=== PATIENT | male | born 1960 | race Caucasian/White ===

== ENCOUNTER 2017-08-01 07:40 | Inpatient (IN) | payer OTHER, MEDICARE ==
[~2017-08-01] VITALS: Ht 167.6 cm; Wt 100.0 kg
[~2017-08-01 07:40] MED LIST: AMIT25TA20 PO; DIFL500T PO; ENAL10TA7 PO; HYDR10SO PO; HYDR10TA16 PO; METH750T2 PO; PARO10TA
[2017-08-01] MEDS ORDERED: LACTCAP8 PO (08:24)
[2017-08-01] MEDS ORDERED: MORP1TAB25 PO (08:24)
[2017-08-01] MEDS ORDERED: INSU1INJ14 SQ (08:24)
[2017-08-01] MEDS ORDERED: LISI40TA PO (08:24)
[2017-08-01] MEDS ORDERED: NOVOINJ3 SQ (08:24)
[2017-08-01] MEDS ORDERED: [UNRECOGNIZED DRUG - CODE] PO (08:24)
[2017-08-01] MEDS ORDERED: GLIM1TAB PO (08:24)
[2017-08-01] MEDS ORDERED: HYDR25TA5 PO (08:24)
[2017-08-01] MEDS ORDERED: INUL2TAB2 PO (08:24)
--- NOTE | 2017-08-01 08:39 | PD ---
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 Vera for surgery. Pt had an outpatient MRI right foot that showed osteomyelitis of right big toe in the distal phalanx and Dr. Vera wants to do a bone biopsy and culture. Pt denies any fever, chest pain, sob, n/v, abdominal pain, focal weakness or numbness. PFSH Past Medical History Arthritis: No Asthma: No Blood Disorders: No Heart Rhythm Problems: Yes Cancer: No Cardiovascular Problems: Yes (HEART PALPITATIONS) High Cholesterol: Yes Chest Pain: No Congestive Heart Failure: No COPD: No Cerebrovascular Accident: No Diabetes: Yes Patient Takes Glucophage: No Diminished Hearing: No Endocrine: Yes Gastrointestinal Disorders: Yes GERD: Yes Glaucoma: Yes Headaches: Yes Hepatitis: No Hiatal Hernia: No Hypertension: Yes Immune Disorder: No Musculoskeletal: Yes Neurologic: Yes (PERIPHERAL NEUROPATHY) Psychiatric: No Reproductive: No Respiratory: Yes Migraines: No Myocardial Infarction: Yes (PER ECG) Seizures: No Sleep Apnea: No Thyroid Disease: No Ulcer: No Tetanus Vaccination: > 5 Years Influenza Vaccination: No Past Surgical History Abdominal Surgery: Yes (RIGHT INGUINAL HERNIA REPAIR) Appendectomy: Yes Cardiac Surgery: No Cholecystectomy: Yes Ear Surgery: No Endocrine Surgery: Yes (RIGHT NEPHRECTOMY AGE 11) Eye Surgery: No Genitourinary Surgery: Yes (RIGHT NEPHRECTOMY) Gynecologic Surgery: No Oral Surgery: No Thoracic Surgery: No Tonsillectomy: Yes Other Surgery: Yes (RIGHT KIDNEY REMOVED AT AGE 11) Social History Alcohol Use: Yes (RARELY) Tobacco Use: Yes (OCCASIONAL CIGAR) Substance Use: No Allergies-Medications (Allergen,Severity, Reaction): Coded Allergies: No Known Allergies (Verified , 08/01/17) Reported Meds & Prescriptions Reported Meds & Active Scripts Active Reported Fiber Gummies (Inulin) 2 Gram Tab.chew 2 Gm PO DAILY Probiotic (Lactobacillus Acidophilus) 10 Billion Cell Cap 3 Cap PO DAILY Sm Cod Liver Oil (Cod Liver Oil) 1,250 Unit-135 Unit Cap 415 Mg PO DAILY Tresiba Flextouch Pen Inj (Insulin Degludec Inj) 300 unit/3 ML Pen 56 Units SQ BID Novolog Flexpen Inj (Insulin Aspart) 300 Unit/3 Ml Pen 15 Units SQ ACHS Hydrochlorothiazide 25 Mg Tab 25 Mg PO DAILY Glimepiride 1 Mg Tab 1 Mg PO DAILY Take with breakfast or first main meal Morphine ER (Morphine Sulfate) 30 Mg Tab 30 Mg PO BID Lisinopril 40 Mg Tab 40 Mg PO DAILY Review of Systems Except as stated in HPI: all other systems reviewed are Neg Physical Exam Narrative GENERAL: 57yo M not in distress. SKIN: Focused skin assessment warm/dry. HEAD: Atraumatic. Normocephalic. CARDIOVASCULAR: Regular rate and rhythm. No murmur appreciated. RESPIRATORY: No accessory muscle use. Clear to auscultation. Breath sounds equal bilaterally. GASTROINTESTINAL: Abdomen soft, non-tender, nondistended. No rebound tenderness or guarding. MUSCULOSKELETAL: Right foot: Generalized edema in 1st metatarsal. +1.5cm by 1cm ulcer in plantar surface of right big toe and 1cm by 1cm ulcer plantar surface of base of fifth metatarsal. NEUROLOGICAL: Awake and alert. No obvious cranial nerve deficits. Motor grossly within normal limits. Normal speech. PSYCHIATRIC: Appropriate mood and affect; insight and judgment normal. Data Data Orders Orders Complete Blood Count With Diff (08/01/17 08:21) Basic Metabolic Panel (Bmp) (08/01/17 08:21) Prothrombin Time / Inr (Pt) (08/01/17 08:21) Act Partial Throm Time (Ptt) (08/01/17 08:21) Type And Screen (08/01/17 08:21) Electrocardiogram (08/01/17 ) Admit Order (Ed Use Only) (08/01/17 10:04) NPO (08/01/17 10:05) Consult Podiatry (08/01/17 ) Ns (Bolus) Inj (08/01/17 10:15) Labs Laboratory Tests Test 08/01/17 08:40 White Blood Count 8.2 TH/MM3 Red Blood Count 4.10 MIL/MM3 Hemoglobin 11.7 GM/DL Hematocrit 35.2 % Mean Corpuscular Volume 85.9 FL Mean Corpuscular Hemoglobin 28.4 PG Mean Corpuscular Hemoglobin Concent 33.1 % Red Cell Distribution Width 13.8 % Platelet Count 239 TH/MM3 Mean Platelet Volume 8.2 FL Neutrophils (%) (Auto) 64.5 % Lymphocytes (%) (Auto) 23.0 % Monocytes (%) (Auto) 8.7 % Eosinophils (%) (Auto) 3.2 % Basophils (%) (Auto) 0.6 % Neutrophils # (Auto) 5.3 TH/MM3 Lymphocytes # (Auto) 1.9 TH/MM3 Monocytes # (Auto) 0.7 TH/MM3 Eosinophils # (Auto) 0.3 TH/MM3 Basophils # (Auto) 0.0 TH/MM3 CBC Comment DIFF FINAL Differential Comment Prothrombin Time 10.3 SEC Prothromb Time International Ratio 0.9 RATIO Activated Partial Thromboplast Time 27.8 SEC Blood Urea Nitrogen 58 MG/DL Creatinine 2.32 MG/DL Random Glucose 202 MG/DL Calcium Level 9.2 MG/DL Sodium Level 133 MEQ/L Potassium Level 5.1 MEQ/L Chloride Level 99 MEQ/L Carbon Dioxide Level 24.7 MEQ/L Anion Gap 9 MEQ/L Estimat Glomerular Filtration Rate 29 ML/MIN MDM Medical Decision Making Medical Screen Exam Complete: Yes Emergency Medical Condition: Yes Interpretation(s) EKG: NSR 60bpm. No ST segment elevation or depression. Differential Diagnosis Osteomyelitis 1st great toe Narrative Course 57yo M sent in by concrete pipe machine operator for osteomyelitis of right first metatarsal. I discussed with Dr. Vera and she said to hold antibiotics for now because she is planning to do biopsy and culture and to keep pt NPO now for surgery 6pm today. Labs reviewed, no leukocytosis. BUN/creatinine mildly elevated from baseline at 58/2.32. Glucose elevated at 202 but normla anion gap and normal CO2. Pt is in no pain and states he has neuropathy. I discussed with Dr. Yadav but already knows about the patient and accepted to his service. Diagnosis Primary Impression: Osteomyelitis Qualified Codes: M86.9 - Osteomyelitis, unspecified Admitting Information Admitting Physician Requests: it SteveMaci DO Aug 01, 2017 08:39
[2017-08-01 09:04] LABS: AUTOMATED NEUTROPHIL # 5.3 TH/MM3 (1.8-7.7); BASOPHIL % 0.6 % (0.0-2.0); EOSINOPHIL # 0.3 TH/MM3 (0-0.4); EOSINOPHIL % 3.2 % (0.0-4.0); HEMATOCRIT 35.2 % (39.0-51.0); HEMO FLAGS DIFF FINAL; LYMPHOCYTE # 1.9 TH/MM3 (1.0-4.8); MEAN CELL VOLUME 85.9 FL (80.0-100.0); MEAN CORPUSCULAR HEMOGLOBIN 28.4 PG (27.0-34.0); MEAN CORPUSCULAR HGB CONC 33.1 % (32.0-36.0); MONO % 8.7 % (0.0-8.0); NEUT % 64.5 % (16.0-70.0); PLATELET COUNT 239 TH/MM3 (150-450); RED CELL DISTRIBUTION WIDTH 13.8 % (11.6-17.2); WHITE BLOOD COUNT 8.2 TH/MM3 (4.0-11.0)
[2017-08-01 09:19] LABS: INTERNATIONAL NORMALIZED RATIO 0.9 RATIO; PROTHROMBIN TIME - PATIENT 10.3 SEC (9.8-11.6)
[2017-08-01 09:24] LABS: APTT (PATIENT) 27.8 SEC (24.3-30.1)
[2017-08-01 09:29] LABS: BICARBONATE 24.7 MEQ/L (21.0-32.0)
[2017-08-01 09:30] LABS: POTASSIUM 5.1 MEQ/L (3.5-5.1)
[2017-08-01] MEDS ORDERED: SODIUM CHLOR 0.9% 1000 ML INJ 1,000 ML IV ONE (10:15)
[2017-08-01] MEDS ORDERED: SODIUM CHLOR 0.45% 1000 ML INJ 1,000 ML IV SCH (10:31)
[2017-08-01] MEDS ORDERED: ACETAMINOPHEN 325 MG TAB PO PRN (10:45)
[2017-08-01] MEDS ORDERED: MAGNESIUM HYDROXIDE SUSP 30 ML CUP PO PRN (10:45)
[2017-08-01] MEDS ORDERED: ONDANSETRON HCL 4 MG/2 ML VIAL IVP PRN (10:45)
[2017-08-01] MEDS ORDERED: NALOXONE HCL 0.4 MG/ML AMP IV PUSH PRN (10:45)
[2017-08-01] MEDS ORDERED: BISACODYL 10 MG SUPP RECTAL PRN (10:45)
[2017-08-01] MEDS ORDERED: DEXTROSE 50% IN WATER 50 ML VIAL(D50) IV PUSH PRN (10:45)
[2017-08-01] MEDS ORDERED: GLUCAGON 1 MG/ML VIAL OTHER PRN (10:45)
--- NOTE | 2017-08-01 11:31 | HHI.HP ---
HPI Service [facility] Hospitalists Primary Care Physician Dr. Garcia Admission Diagnosis Osteomyelitis of right great toe Chief Complaint: send by Dr. Barrios for OM right great toe Travel History International Travel<30 Days: No Contact w/Intl Traveler <30 Da: No Traveled to Known Affected Are: No History of Present Illness This 57-year-old male patient with past medical history which includes right nephrectomy at age 11, hypertension, diabetes mellitus with severe peripheral neuropathy, chronic back pain, spinal stenosis and glaucoma. The patient has been following with field return repairer Dr. Barrios for the past 3 months. Patient reports it started as a callus on the right great toe at that time also had a black toenail believes he, "smashed," the toe but does not recall any particular incidence as he has advanced peripheral neuropathy. Patient had an outpatient MRI done which revealed osteomyelitis of the right great toe. Patient was sent here by Dr. Barrios for bone biopsy and culture this evening. Patient denies pain, without odor odor from the ulceration plantar surface right great toe. Patient also denies fevers chills nausea vomiting shortness of breath or chest pain. Patient does take morphine sulfate extended release 30 mg twice a day and suffers with chronic constipation for which she takes probiotic and hyperkalemia daily at home. Patient patient reports he has had, "bad reactions," to general anesthesia in the past. Patient reports after shoulder surgery he was very violent coming out of anesthesia and also reports during an endoscopy he had respiratory distress. Patient does not want general anesthesia. Patient offers no other complaints at this time Review of Systems Constitutional: DENIES: Fatigue, Fever, Chills Respiratory: DENIES: Cough, Sputum production, Shortness of breath Cardiovascular: DENIES: Chest pain, Palpitations Gastrointestinal: COMPLAINS OF: Constipation (chronic secondary to narcotic use ), DENIES: Abdominal pain, Diarrhea Musculoskeletal: COMPLAINS OF: Joint pain, Stiffness, Back pain Neurologic: DENIES: Abnormal gait, Speech Problems Psychiatric: DENIES: Anxiety, Confusion, Depression Past Family Social History Past Medical History hypertension, diabetes mellitus with severe peripheral neuropathy, chronic back pain, spinal stenosis and glaucoma Past Surgical History Right inguinal hernia repair, right shoulder surgery and right nephrectomy at age 11 Reported Medications Fiber Gummies (Inulin) 2 Gram Tab.chew 2 Gm PO DAILY Probiotic (Lactobacillus Acidophilus) 10 Billion Cell Cap 3 Cap PO DAILY Sm Cod Liver Oil (Cod Liver Oil) 1,250 Unit-135 Unit Cap 415 Mg PO DAILY Tresiba Flextouch Pen Inj (Insulin Degludec Inj) 300 unit/3 ML Pen 56 Units SQ BID Novolog Flexpen Inj (Insulin Aspart) 300 Unit/3 Ml Pen 15 Units SQ ACHS Hydrochlorothiazide 25 Mg Tab 25 Mg PO DAILY Glimepiride 1 Mg Tab 1 Mg PO DAILY Take with breakfast or first main meal Morphine ER (Morphine Sulfate) 30 Mg Tab 30 Mg PO BID Lisinopril 40 Mg Tab 40 Mg PO DAILY Allergies: Coded Allergies: No Known Allergies (Verified , 08/01/17) Active Ordered Medications Current Medications Medications (Trade) Dose Ordered Sig/Teo Route Start Time Stop Time Status Last Admin Sodium Chloride 1,000 ml @ 999 mls/hr BOLUS ONCE IV 08/01/17 10:15 08/01/17 11:15 08/01/17 10:37 (NS Flush) 2 ml UNSCH PRN IV FLUSH 08/01/17 10:45 (NS Flush) 2 ml BID IV FLUSH 08/01/17 21:00 (Tylenol) 650 mg Q4H PRN PO 08/01/17 10:45 (Zofran Inj) 4 mg Q6H PRN IVP 08/01/17 10:45 (Narcan Inj) 0.4 mg UNSCH PRN IV PUSH 08/01/17 10:45 (Rhonda-Colace) 1 tab BID PO 08/01/17 21:00 (Milk Of Magnesia Liq) 30 ml Q12H PRN PO 08/01/17 10:45 (Dulcolax Supp) 10 mg DAILY PRN RECTAL 08/01/17 10:45 Sodium Chloride 1,000 ml @ 75 mls/hr [id number] IV 08/01/17 11:00 (D50w (Vial) Inj) 50 ml UNSCH PRN IV PUSH 08/01/17 10:45 (Glucagon Inj) 1 mg UNSCH PRN OTHER 08/01/17 10:45 (NovoLOG SUPPLEMENTAL SCALE) 1 ACHS SLIDING SCALE SQ 08/01/17 12:00 Family History Patient reports he does not know much about his biological father's health history believes he has diabetes on that side of the family patient's mother is alive 74 with a history of breast cancer patient's maternal grandmother had colon cancer Social History Rare EtOH use aspirin once to twice per year Smokes 2 cigars per day Denies illicit drug use Physical Exam Physical Exam GENERAL: This is a well-nourished, well-developed patient, in no apparent distress. SKIN: Open ulceration right great toe plantar surface also with open ulceration lateral aspect right foot CARDIOVASCULAR: Regular rate and rhythm without murmurs, gallops, or rubs. RESPIRATORY: Clear to auscultation. Breath sounds equal bilaterally. No wheezes , rales, or rhonchi. GASTROINTESTINAL: Abdomen soft, non-tender, nondistended. Hypoactive bowel sounds MUSCULOSKELETAL: Extremities without clubbing, cyanosis, or edema. No joint tenderness, effusion, or edema noted. No calf tenderness. Negative Homans sign bilaterally. NEUROLOGICAL: Awake and alert. No focal deficits identified. Motor and sensory grossly within normal limits. Five out of 5 muscle strength in all muscle groups. Normal speech. Laboratory Laboratory Tests Test 08/01/17 08:40 White Blood Count 8.2 Red Blood Count 4.10 Hemoglobin 11.7 Hematocrit 35.2 Mean Corpuscular Volume 85.9 Mean Corpuscular Hemoglobin 28.4 Mean Corpuscular Hemoglobin Concent 33.1 Red Cell Distribution Width 13.8 Platelet Count 239 Mean Platelet Volume 8.2 Neutrophils (%) (Auto) 64.5 Lymphocytes (%) (Auto) 23.0 Monocytes (%) (Auto) 8.7 Eosinophils (%) (Auto) 3.2 Basophils (%) (Auto) 0.6 Neutrophils # (Auto) 5.3 Lymphocytes # (Auto) 1.9 Monocytes # (Auto) 0.7 Eosinophils # (Auto) 0.3 Basophils # (Auto) 0.0 CBC Comment DIFF FINAL Differential Comment Prothrombin Time 10.3 Prothromb Time International Ratio 0.9 Activated Partial Thromboplast Time 27.8 Blood Urea Nitrogen 58 Creatinine 2.32 Random Glucose 202 Calcium Level 9.2 Sodium Level 133 Potassium Level 5.1 Chloride Level 99 Carbon Dioxide Level 24.7 Anion Gap 9 Estimat Glomerular Filtration Rate 29 Result Diagram: 08/01/1740 08/01/1740 Caprini VTE Risk Assessment Caprini VTE Risk Assessment: Mod/High Risk (score >= 2) Caprini Risk Assessment Model Point Value = 1 Point Value = 2 Point Value = 3 Point Value = 5 Age 41-60 Minor surgery BMI > 25 kg/m2 Swollen legs Varicose veins or History of unexplained or recurrent spontaneous Oral contraceptives or hormone replacement Sepsis (< 1 month) Serious lung disease, including pneumonia (< 1 month) Abnormal pulmonary function Acute myocardial infarction Congestive heart failure (< 1 month) History of inflammatory bowel disease Medical patient at bed rest Age 61-74 Arthroscopic surgery Major open surgery (> 45 min) Laparoscopic surgery (> 45 min) Malignancy Confined to bed (> 72 hours) Immobilizing plaster cast Central venous access Age >= 75 History of VTE Family history of VTE Factor V Leiden Prothrombin [id number] Lupus anticoagulant Anticardiolipin antibodies Elevated serum homocysteine Heparin-induced thrombocytopenia Other congenital or acquired thrombophilia Stroke (< 1 month) Elective arthroplasty Hip, pelvis, or leg fracture Acute spinal cord injury (< 1 month) Prophylaxis Regimen Total Risk Factor Score Risk Level Prophylaxis Regimen 0-1 Low Early ambulation 2 Moderate Order ONE of the following: *Sequential Compression Device (SCD) *Heparin 5000 units SQ BID 3-4 Higher Order ONE of the following medications: *Heparin 5000 units SQ TID *Enoxaparin/Lovenox 40 mg SQ daily (WT < 150 kg, CrCl > 30 mL/min) *Enoxaparin/Lovenox 30 mg SQ daily (WT < 150 kg, CrCl > 10-29 mL/min) *Enoxaparin/Lovenox 30 mg SQ BID (WT < 150 kg, CrCl > 30 mL/min) AND/OR *Sequential Compression Device (SCD) 5 or more Highest Order ONE of the following medications: *Heparin 5000 units SQ TID (Preferred with Epidurals) *Enoxaparin/Lovenox 40 mg SQ daily (WT < 150 kg, CrCl > 30 mL/min) *Enoxaparin/Lovenox 30 mg SQ daily (WT < 150 kg, CrCl > 10-29 mL/min) *Enoxaparin/Lovenox 30 mg SQ BID (WT < 150 kg, CrCl > 30 mL/min) AND *Sequential Compression Device (SCD) Assessment and Plan Problem List: (1) Osteomyelitis ICD Codes: M86.9 - Osteomyelitis, unspecified Status: Acute Plan: Osteomyelitis of right great toe Patient had an outpatient MRI done which revealed osteomyelitis of the right great toe. Plan bone biopsy and culture this evening with Dr. Milliron Will hold off on abx until after culture obtained NPO at this time IV fluids Diabetes mellitus Patient takes 15 units Novolog subcutaneous before meals at bedtime and Tresiba 56 units subcutaneous twice a day- will hold at this time as patient is nothing by mouth Accuchecks ACHS hold oral diabetic medications at this time Chronic kidney disease stage III with right nephrectomy at age 11 avoid nephrotoxic agents IV fluids NS at 100mlH monitor recheck BMP in AM Hypertension monitor BP trend hold home Lisinopril 40 mg daily due to elevated renal function Chronic pain continue home medications Morphine ER 30 mg BID monitor for sedation Chronic constipation Patient may take his own probiotic and fiber gummies milk of magnesia as needed Colace BID Dulcolax supp as needed DVT prophylaxis with SCDs at this time patient has planned surgical procedure this evening (2) Diabetes mellitus ICD Codes: E11.9 - Type 2 diabetes mellitus without complications (3) CKD (chronic kidney disease), stage III ICD Codes: N18.3 - Chronic kidney disease, stage 3 (moderate) (4) HTN (hypertension) ICD Codes: I10 - Essential (primary) hypertension (5) Chronic pain ICD Codes: G89.29 - Other chronic pain Assessment and Plan Patient examined. Assessment and plan formulated with Lovely Page PA-C. I agree with the above. 2 diabetic foot ulcerations with osteo of great toe based on outpt MRI Going for bone bx and cx. Pt wants abx rx and not amputation. Physician Certification 2 Midnight Certification Type: Admission for Inpatient Services Order for Inpatient Services The services are ordered in accordance with Medicare regulations or non- Medicare payer requirements, as applicable. In the case of services not specified as inpatient-only, they are appropriately provided as inpatient services in accordance with the 2-midnight benchmark. Estimated LOS (days): 4 days is the estimated time the patient will need to remain in the hospital, assuming treatment plan goals are met and no additional complications. Post-Hospital Plan: Not yet determined Problem Qualifiers (1) Osteomyelitis: Qualified Codes: M86.9 - Osteomyelitis, unspecified Loevly Page Aug 01, 2017 11:31 Harish Velasco MD Aug 01, 2017 18:01
[2017-08-01] MEDS: SODIUM CHLOR 0.9% 1000 ML INJ 1,000 ML IV SCH ×2 (11:43→20:45)
[2017-08-01] MEDS: INSULIN ASPART SUPPLEMENTAL SCALE SQ SCH ×3 (11:50→21:00)
[2017-08-01] MEDS ORDERED: MIDAZOLAM HCL 2 MG/2 ML VIAL IV ONE (12:00)
[2017-08-01 13:37] VITALS: BP 145/75; PULSE 60; RESP 16; O2SAT 98
--- NOTE | 2017-08-01 19:17 | EKG ---
Date Performed: 08/01/2017 Time Performed: 10:29:10 PTAGE: 57 years EKG: Sinus rhythm POSSIBLE INFERIOR MYOCARDIAL INFARCTION BORDERLINE ECG PREVIOUS TRACING : 02/24/2011 15.33 Compared with previous EKG sinus tachycardias no longer pre sent DOCTOR: Devon Celaya Interpretating Date/Time 08/01/2017 19:16:23
--- NOTE | 2017-08-01 19:34 | PD.CONS ---
History of Present Illness Service Podiatry Consult Requested By Reason for Consult R hallux osteomyelitis Primary Care Physician Unknown Diagnoses: History of Present Illness Patient admitted for infection R hallux. He had outpatient MRI confirming osteomyelitis and want further confirmation before moving forward with treatment. He is adamant about no amputation and wants to pursue IV antibiotics for treatment Past Family Social History Allergies: Coded Allergies: No Known Allergies (Verified , 08/01/17) Past Medical History hypertension, diabetes mellitus with severe peripheral neuropathy, chronic back pain, spinal stenosis and glaucoma Past Surgical History Right inguinal hernia repair, right shoulder surgery and right nephrectomy at age 11 Active Ordered Medications Current Medications Medications (Trade) Dose Ordered Sig/Teo Route Start Time Stop Time Status Last Admin (NS Flush) 2 ml UNSCH PRN IV FLUSH 08/01/17 10:45 (NS Flush) 2 ml BID IV FLUSH 08/01/17 21:00 (Tylenol) 650 mg Q4H PRN PO 08/01/17 10:45 (Zofran Inj) 4 mg Q6H PRN IVP 08/01/17 10:45 (Narcan Inj) 0.4 mg UNSCH PRN IV PUSH 08/01/17 10:45 (Rhonda-Colace) 1 tab BID PO 08/01/17 21:00 (Milk Of Magnesia Liq) 30 ml Q12H PRN PO 08/01/17 10:45 (Dulcolax Supp) 10 mg DAILY PRN RECTAL 08/01/17 10:45 Sodium Chloride 1,000 ml @ 100 mls/hr Q10H IV 08/01/17 11:00 08/01/17 11:43 (D50w (Vial) Inj) 50 ml UNSCH PRN IV PUSH 08/01/17 10:45 (Glucagon Inj) 1 mg UNSCH PRN OTHER 08/01/17 10:45 (NovoLOG SUPPLEMENTAL SCALE) 1 ACHS SLIDING SCALE SQ 08/01/17 12:00 (Oramorph Sr) 30 mg BID PO 08/01/17 21:00 Patient Own Medication 1 ea DAILY PO 08/02/17 09:00 Patient Own Medication PT OWN MED: lactobacillus acidophi... DAILY PO 08/02/17 09:00 Future Hold Family History Patient reports he does not know much about his biological father's health history believes he has diabetes on that side of the family patient's mother is alive 74 with a history of breast cancer patient's maternal grandmother had colon cancer Social History Rare EtOH use aspirin once to twice per year Smokes 2 cigars per day Denies illicit drug use Physical Exam Vital Signs Vital Signs Date Time Temp Pulse Resp B/P (MAP) Pulse Ox O2 Delivery O2 Flow Rate FiO2 08/01/17 14:32 08/01/17 13:37 60 16 145/75 (98) 98 Room Air Physical Exam R hallux with ulcer to distal plantar aspect of hallux. Erythema to hallux. Full thickness ulceration to R plantar 5th met head area, as well. Palpable pedal pulses. Sensation absent Laboratory Laboratory Tests Test 08/01/17 08:40 White Blood Count 8.2 Red Blood Count 4.10 Hemoglobin 11.7 Hematocrit 35.2 Mean Corpuscular Volume 85.9 Mean Corpuscular Hemoglobin 28.4 Mean Corpuscular Hemoglobin Concent 33.1 Red Cell Distribution Width 13.8 Platelet Count 239 Mean Platelet Volume 8.2 Neutrophils (%) (Auto) 64.5 Lymphocytes (%) (Auto) 23.0 Monocytes (%) (Auto) 8.7 Eosinophils (%) (Auto) 3.2 Basophils (%) (Auto) 0.6 Neutrophils # (Auto) 5.3 Lymphocytes # (Auto) 1.9 Monocytes # (Auto) 0.7 Eosinophils # (Auto) 0.3 Basophils # (Auto) 0.0 CBC Comment DIFF FINAL Differential Comment Prothrombin Time 10.3 Prothromb Time International Ratio 0.9 Activated Partial Thromboplast Time 27.8 Blood Urea Nitrogen 58 Creatinine 2.32 Random Glucose 202 Calcium Level 9.2 Sodium Level 133 Potassium Level 5.1 Chloride Level 99 Carbon Dioxide Level 24.7 Anion Gap 9 Estimat Glomerular Filtration Rate 29 Result Diagram: 08/01/17 0840 08/01/17 0840 Imaging Previous outpatient MRI with findings consistent with OM distal phalanx of hallux Assessment and Plan Assessment and Plan Osteomyelitis R distal hallux To OR for bone biopsy and culture R hallux Will need PICC Alyssa Barrios DPM Aug 01, 2017 19:34
[2017-08-01] MEDS ORDERED: NEOMYCIN/POLYMYXIN 1 ML G.U. IRRIGANT IRRIGATION ONE (19:44)
[2017-08-01] MEDS ORDERED: BUPIVACAINE HCL PF 0.25% 30 ML VIAL INFIL ONE (19:44)
[2017-08-01] MEDS ORDERED: DO NOT ADM ANY ANTICOAGULANT DRUGS PRN (20:01)
--- NOTE | 2017-08-01 20:06 | HHI.PR ---
Immediate Post Op Note Procedure Date: Aug 01, 2017 Pre Op Diagnosis: Osteomyelitis R hallux, distal phalanx Post Op Diagnosis: Same Surgeon: Alyssa Barrios DPM Dental Officer(s): Staff Procedure: Bone biopsy and culture R distal hallux Findings: Consistent with diagnosis. long-standing ulceration to distal plantar hallux. 10mL 0.25% marcaine plain local block to R hallux. Stab incision made R hallux above ulcer area and bone taken from distal phalanx with jamshidi needle x 2, one sent for culture and one for biopsy of bone. 3-0 nylon suture to close incision, followed by xeroform, 4x4, cling, tape, mary grace. Complications: None Specimen(s) removed: 1. bone biopsy R distal phalanx of hallux 2. culture R distal phalanx of hallux Estimated blood loss: 2mL Anesthesia: Local (0.25% marcaine plain x 10 mL) Drains: None IVF Tourniquet time (min at mmHg) n/a Patient to: PACU Patient Condition: Good Date/Time of Procedure: SEE SURGICAL CARE RECORD Alyssa Barrios DPM Aug 01, 2017 20:06
[2017-08-01] MEDS: SODIUM CHLORIDE 0.9% FLUSH 10 ML FLUSH IV FLUSH SCH (21:00)
[2017-08-01] MEDS: DOCUSATE SODIUM 50 MG/SENNA 8.6 MG TAB PO SCH (21:44)
[2017-08-01] MEDS: MORPHINE SULFATE 30 MG CONTROLLED RELEASE TAB PO SCH (21:45)
--- NOTE | 2017-08-01 21:59 | RADRPT ---
EXAM DATE/TIME: 08/01/2017 20:19 [facility] COMPARISON: No previous studies available for comparison. INDICATIONS : Post op right foot surgery. MEDICAL HISTORY : None. SURGICAL HISTORY : None. ENCOUNTER: Initial ACUITY: 1 day PAIN SCORE: 0/10 LOCATION: Right foot FINDINGS: Prior studies are unavailable for comparison. There is absence of portions of the distal tuft of the first distal phalanx. There some calcification in the soft tissues in this region. There is soft tiss ue swelling at the first digit. Remaining bones and joints appear intact. There is a calcaneal spur a t the plantar neurosis attachment site. CONCLUSION: Destructive and/or postoperative change at the distal first tuft of the distal first phalanx. Schuyler Downs MD on August 01, 2017 at 21:55 Board Certified Radiologist. This report was verified electronically.
[2017-08-02] VITALS: BP 135/66; PULSE 72; RESP 20; TEMP 98.4; O2SAT 98
[2017-08-02 01:43] VITALS: O2SAT 96
[2017-08-02] MEDS: MORPHINE SULFATE 30 MG CONTROLLED RELEASE TAB PO SCH ×2 (07:53→22:06)
[2017-08-02] MEDS: DOCUSATE SODIUM 50 MG/SENNA 8.6 MG TAB PO SCH ×2 (07:53→21:00)
[2017-08-02] MEDS: SODIUM CHLORIDE 0.9% FLUSH 10 ML FLUSH IV FLUSH SCH ×2 (07:54→21:00)
[2017-08-02] MEDS: PATIENT OWN MEDICATION PO SCH (07:54)
[2017-08-02] MEDS: SODIUM CHLOR 0.9% 1000 ML INJ 1,000 ML IV SCH ×2 (07:54→17:25)
[2017-08-02] MEDS: INSULIN ASPART SUPPLEMENTAL SCALE SQ SCH ×3 (08:25→22:17)
[2017-08-02 08:31] LABS: ALT (GPT) 16 U/L (12-78); ANION GAP 8 MEQ/L (5-15); AST (GOT) 11 U/L (15-37); BICARBONATE 25.8 MEQ/L (21.0-32.0); BLOOD UREA NITROGEN 51 MG/DL (7-18); CHLORIDE 104 MEQ/L (98-107); GLOMERULAR FILTRATION RATE 35 ML/MIN (>89); POTASSIUM 4.4 MEQ/L (3.5-5.1); SODIUM (NA) 138 MEQ/L (136-145)
[2017-08-02 08:33] LABS: ALKALINE PHOSPHATASE 63 U/L (45-117); TOTAL BILIRUBIN ADULT 0.3 MG/DL (0.2-1.0)
[2017-08-02] MEDS ORDERED: LISINOPRIL 20 MG TAB PO SCH (09:00)
[2017-08-02] MEDS ORDERED: LACTOBACILLUS ACIDOPHILUS PO SCH (09:00)
[2017-08-02] MEDS ORDERED: ACETAMINOPHEN/HYDROcodone 325 MG/5 MG TAB PO PRN (11:45)
--- NOTE | 2017-08-02 11:51 | HHI.PR ---
Subjective Remarks Patient reports moderated intermitted pain R foot which is not relieved by his morphine ER 300 mg BID offers no other specific complaints Objective Vitals Vital Signs Date Time Temp Pulse Resp B/P (MAP) Pulse Ox O2 Delivery O2 Flow Rate FiO2 08/02/17 01:43 96 08/02/17 00:00 98.4 72 20 135/66 (89) 98 08/01/17 20:45 97.9 61 17 104/54 (71) 94 Room Air 08/01/17 20:30 64 18 113/55 (74) 96 Room Air 08/01/17 20:15 65 16 131/60 (83) 97 Room Air 08/01/17 20:05 67 19 155/72 (99) 99 Room Air 08/01/17 20:01 98.3 66 16 162/73 (102) 98 Room Air 08/01/17 19:00 68 17 161/73 (102) 98 08/01/17 18:30 64 12 169/57 (94) 94 08/01/17 14:32 08/01/17 13:37 60 16 145/75 (98) 98 Room Air Result Diagram: 08/01/17 0840 08/02/17 0735 Other Results Laboratory Tests Test 08/01/17 08:40 08/02/17 07:35 White Blood Count 8.2 TH/MM3 Red Blood Count 4.10 MIL/MM3 Hemoglobin 11.7 GM/DL Hematocrit 35.2 % Mean Corpuscular Volume 85.9 FL Mean Corpuscular Hemoglobin 28.4 PG Mean Corpuscular Hemoglobin Concent 33.1 % Red Cell Distribution Width 13.8 % Platelet Count 239 TH/MM3 Mean Platelet Volume 8.2 FL Neutrophils (%) (Auto) 64.5 % Lymphocytes (%) (Auto) 23.0 % Monocytes (%) (Auto) 8.7 % Eosinophils (%) (Auto) 3.2 % Basophils (%) (Auto) 0.6 % Neutrophils # (Auto) 5.3 TH/MM3 Lymphocytes # (Auto) 1.9 TH/MM3 Monocytes # (Auto) 0.7 TH/MM3 Eosinophils # (Auto) 0.3 TH/MM3 Basophils # (Auto) 0.0 TH/MM3 CBC Comment DIFF FINAL Differential Comment Prothrombin Time 10.3 SEC Prothromb Time International Ratio 0.9 RATIO Activated Partial Thromboplast Time 27.8 SEC Blood Urea Nitrogen 58 MG/DL 51 MG/DL Creatinine 2.32 MG/DL 2.00 MG/DL Random Glucose 202 MG/DL 249 MG/DL Calcium Level 9.2 MG/DL 8.6 MG/DL Sodium Level 133 MEQ/L 138 MEQ/L Potassium Level 5.1 MEQ/L 4.4 MEQ/L Chloride Level 99 MEQ/L 104 MEQ/L Carbon Dioxide Level 24.7 MEQ/L 25.8 MEQ/L Anion Gap 9 MEQ/L 8 MEQ/L Estimat Glomerular Filtration Rate 29 ML/MIN 35 ML/MIN Total Protein 7.4 GM/DL Albumin 2.9 GM/DL Alkaline Phosphatase 63 U/L Aspartate Amino Transf (AST/SGOT) 11 U/L Alanine Aminotransferase (ALT/SGPT) 16 U/L Total Bilirubin 0.3 MG/DL Imaging Last Impressions Foot X-Ray 08/01/17 0000 Signed Impressions: Service Date/Time: Tuesday, August 01, 2017 20:19 - CONCLUSION: Destructive and/or postoperative change at the distal first tuft of the distal first phalanx. Schuyler Downs MD Objective Remarks GENERAL: This is a well-nourished, well-developed patient, in no apparent distress. SKIN: post operative dressing R foot dry and intact CARDIOVASCULAR: Regular rate and rhythm without murmurs, gallops, or rubs. RESPIRATORY: Clear to auscultation. Breath sounds equal bilaterally. No wheezes , rales, or rhonchi. GASTROINTESTINAL: Abdomen soft, non-tender, nondistended. Hypoactive bowel sounds MUSCULOSKELETAL: Extremities without clubbing, cyanosis, or edema. No joint tenderness, effusion, or edema noted. No calf tenderness. Negative Homans sign bilaterally. NEUROLOGICAL: Awake and alert. No focal deficits identified. Motor and sensory grossly within normal limits. Five out of 5 muscle strength in all muscle groups. Normal speech. Procedures Status post bone biopsy and culture right distal hallux (08/02/17) with Dr. Barrios A/P Problem List: (1) Osteomyelitis ICD Codes: M86.9 - Osteomyelitis, unspecified Status: Acute Plan: Osteomyelitis of right great toe Patient had an outpatient MRI done which revealed osteomyelitis of the right great toe. Plan bone biopsy and culture this evening with Dr. Barrios Will hold off on abx until after culture obtained Status post bone biopsy and culture right distal hallux (08/02/17) with Dr. Barrios patient having breakthrough pain will add norco 5/325 PO Q6H as needed for pain Will start abx once culture result is resulted continue IV fluids Diabetes mellitus Patient takes 15 units Novolog subcutaneous before meals at bedtime and Tresiba 56 units subcutaneous twice a day- will hold at this time Accuchecks ACHS restart home Glimepiride 1 mg PO daily increase to high dose SSI Start Levemir 10 units BID Chronic kidney disease stage III with right nephrectomy at age 11 avoid nephrotoxic agents IV fluids NS at 100mlH- monitor for ss of fluid overload monitor Hypertension monitor BP trend hold home Lisinopril 40 mg daily due to elevated renal function Chronic pain continue home medications Morphine ER 30 mg BID monitor for sedation Chronic constipation Patient may take his own probiotic and fiber gummies milk of magnesia as needed Colace BID Dulcolax supp as needed DVT prophylaxis with SCDs (2) Diabetes mellitus ICD Codes: E11.9 - Type 2 diabetes mellitus without complications (3) CKD (chronic kidney disease), stage III ICD Codes: N18.3 - Chronic kidney disease, stage 3 (moderate) (4) HTN (hypertension) ICD Codes: I10 - Essential (primary) hypertension (5) Chronic pain ICD Codes: G89.29 - Other chronic pain Assessment and Plan Patient examined. Assessment and plan formulated with Lovely Page PA-C. I agree with the above. await bone bx. depending on the organism and sensitivity...will plan for midline picc. her pcp is ID physician. Problem Qualifiers (1) Osteomyelitis: Qualified Codes: M86.9 - Osteomyelitis, unspecified Lovely Page Aug 02, 2017 11:51 Harish Velasco MD Aug 02, 2017 12:46
[2017-08-02 12:00] VITALS: BP 159/74; PULSE 64; RESP 20; TEMP 96.9; O2SAT 98
[2017-08-02 16:00] VITALS: BP 159/74; PULSE 62; RESP 20; TEMP 96.9; O2SAT 98
[2017-08-02 20:00] VITALS: BP 179/83; PULSE 73; RESP 18; TEMP 96.5; O2SAT 99
[2017-08-02 20:47] VITALS: O2SAT 99
[2017-08-02] MEDS: INSULIN DETEMIR 100 UNITS/ML VIAL SQ SCH (21:00)
--- NOTE | 2017-08-02 22:38 | PD.POD ---
Subjective Podiatric Problems s/p bone biopsy R Dr Denis willis 08/01/17 Past Med/Surg/Social History Social History Smoking Status: Current Every Day Smoker Objective Vital Signs Vital Signs Date Time Temp Pulse Resp B/P (MAP) Pulse Ox O2 Delivery O2 Flow Rate FiO2 08/02/17 20:47 99 08/02/17 20:00 96.5 73 18 179/83 (115) 99 08/02/17 16:00 96.9 62 20 159/74 (102) 98 08/02/17 12:00 96.9 64 20 159/74 (102) 98 08/02/17 01:43 96 08/02/17 00:00 98.4 72 20 135/66 (89) 98 Coded Allergies: No Known Allergies (Verified , 08/01/17) Assessment & Plan A/P s/p bone biopsy R Dr Denis willis 08/01/17 Await biopsy and culture results to guide treatment. Keep bandage clean, dry, intact Alyssa Barrios DPM Aug 02, 2017 22:38
[2017-08-03] VITALS (7 sets, daily range): BP systolic 141–187; BP diastolic 64–83; PULSE 66–83; RESP 16–20; TEMP 97.1–99.2; O2SAT 92–98
[2017-08-03] MEDS: SODIUM CHLOR 0.9% 1000 ML INJ 1,000 ML IV SCH (04:16)
[2017-08-03] MEDS: DOCUSATE SODIUM 50 MG/SENNA 8.6 MG TAB PO SCH ×2 (09:00→19:22)
[2017-08-03] MEDS: PATIENT OWN MEDICATION PO SCH (09:00)
[2017-08-03] MEDS: INSULIN DETEMIR 100 UNITS/ML VIAL SQ SCH ×2 (09:00→19:23)
[2017-08-03] MEDS: SODIUM CHLORIDE 0.9% FLUSH 10 ML FLUSH IV FLUSH SCH ×2 (09:00→19:22)
[2017-08-03] MEDS: GLIMEPIRIDE 1 MG TAB PO SCH (09:18)
[2017-08-03] MEDS: MORPHINE SULFATE 30 MG CONTROLLED RELEASE TAB PO SCH ×2 (09:18→19:22)
[2017-08-03] MEDS: INSULIN ASPART SUPPLEMENTAL SCALE SQ SCH ×4 (09:20→19:29)
--- NOTE | 2017-08-03 10:25 | HHI.PR ---
Subjective Remarks Pt complains of pain in his right elbow this morning, feels slightly swollen. Afebrile Pain on right foot is better controlled today Pt refusing Levemir insulin. Objective Vitals Vital Signs Date Time Temp Pulse Resp B/P (MAP) Pulse Ox O2 Delivery O2 Flow Rate FiO2 08/03/17 00:44 97.9 75 18 141/64 (89) 96 08/02/17 20:47 99 08/02/17 20:00 96.5 73 18 179/83 (115) 99 08/02/17 16:00 96.9 62 20 159/74 (102) 98 08/02/17 12:00 96.9 64 20 159/74 (102) 98 Result Diagram: 08/01/17 0840 08/02/17 0735 Other Results Laboratory Tests Test 08/02/17 07:35 Blood Urea Nitrogen 51 MG/DL Creatinine 2.00 MG/DL Random Glucose 249 MG/DL Total Protein 7.4 GM/DL Albumin 2.9 GM/DL Calcium Level 8.6 MG/DL Alkaline Phosphatase 63 U/L Aspartate Amino Transf (AST/SGOT) 11 U/L Alanine Aminotransferase (ALT/SGPT) 16 U/L Total Bilirubin 0.3 MG/DL Sodium Level 138 MEQ/L Potassium Level 4.4 MEQ/L Chloride Level 104 MEQ/L Carbon Dioxide Level 25.8 MEQ/L Anion Gap 8 MEQ/L Estimat Glomerular Filtration Rate 35 ML/MIN Imaging Last Impressions Foot X-Ray 08/01/17 0000 Signed Impressions: Service Date/Time: Tuesday, August 01, 2017 20:19 - CONCLUSION: Destructive and/or postoperative change at the distal first tuft of the distal first phalanx. Schuyler Downs MD Objective Remarks General: NAD, AAOx3 Chest: CTA Cardiac: Regular Abd: +BS, soft ND/NT Ext: Post operative dressing R foot dry and intact, right elbow with slight effusion and tenderness, no erythema Procedures Status post bone biopsy and culture right distal hallux (08/02/17) with Dr. Barrios A/P Problem List: (1) Osteomyelitis ICD Codes: M86.9 - Osteomyelitis, unspecified Status: Acute Plan: - Patient had an outpatient MRI done which revealed osteomyelitis of the right great toe. - Status post bone biopsy and culture right distal hallux (08/02/17) with Dr. Barrios - Will hold off on abx until after culture obtained - Pain control PRN with Summit 5/325 PO Q6H as needed for pain - Stop IVF today, right elbow slight effusion. IV in right antecubital fossa, move IV to different location, Apply warm compress and elevate elbow. If still painful/swollen tomorrow will order US - Surgical cultures are pending, no growth thus far - Pathology is pending. - Pt also with chronic constipation, he may take his own probiotic and fiber gummies - milk of magnesia as needed - Colace BID - Dulcolax supp as needed - Discussed the case with Dr. Barrios today and we are in agreement that the pt would most benefit from an amputation, likely at the proximal phalanx. Pt is hesitant to proceed with surgical intervention at this time. - DVT prophylaxis with SCDs (2) Diabetes mellitus ICD Codes: E11.9 - Type 2 diabetes mellitus without complications Status: Chronic Plan: - Patient takes 15 units Novolog subcutaneous before meals at bedtime and Tresiba 56 units subcutaneous twice a day- will hold at this time - Accu checks ACHS - Cont. Glimepiride 1 mg PO daily - Pt is on high dose SSI - He is refusing Levemir because he thinks that his diet here is whats causing the BS to spike. (3) CKD (chronic kidney disease), stage III ICD Codes: N18.3 - Chronic kidney disease, stage 3 (moderate) Status: Chronic Plan: - Pt with chronic kidney disease stage III with right nephrectomy at age 11 - Avoid nephrotoxic agents (4) HTN (hypertension) ICD Codes: I10 - Essential (primary) hypertension Status: Chronic Plan: - monitor BP trend - hold home Lisinopril 40 mg daily due to elevated renal function - Clonidine PRN (5) Chronic pain ICD Codes: G89.29 - Other chronic pain Status: Chronic Plan: - Continue home medications Morphine ER 30 mg BID - Monitor for sedation Assessment and Plan Patient examined. Assessment and plan formulated with Trista Reynolds PA-C. I agree with the above. toe osteo. bx pending. ckd. would possibly need midline. pt now leaning toward amputation of involved toe and it is the current recommendation He will let us know today. Problem Qualifiers (1) Osteomyelitis: Qualified Codes: M86.9 - Osteomyelitis, unspecified (2) Diabetes mellitus: Trista Reynolds Aug 03, 2017 10:25 Harish Velasco MD Aug 03, 2017 15:07
--- NOTE | 2017-08-03 15:39 | PD.POD ---
Subjective Podiatric Problems s/p bone biopsy R Dr Denis willis 08/01/17 Past Med/Surg/Social History Social History Smoking Status: Current Every Day Smoker Objective Vital Signs Vital Signs Date Time Temp Pulse Resp B/P (MAP) Pulse Ox O2 Delivery O2 Flow Rate FiO2 08/03/17 12:00 97.3 72 16 177/82 (113) 98 08/03/17 10:22 92 21 08/03/17 08:00 97.1 66 18 143/76 (98) 97 08/03/17 00:44 97.9 75 18 141/64 (89) 96 08/02/17 20:47 99 08/02/17 20:00 96.5 73 18 179/83 (115) 99 08/02/17 16:00 96.9 62 20 159/74 (102) 98 Coded Allergies: No Known Allergies (Verified , 08/01/17) Medications and IVs Current Medications Medications (Trade) Dose Ordered Sig/Teo Route Start Time Stop Time Status Last Admin (NS Flush) 2 ml UNSCH PRN IV FLUSH 08/01/17 10:45 (NS Flush) 2 ml BID IV FLUSH 08/01/17 21:00 (Tylenol) 650 mg Q4H PRN PO 08/01/17 10:45 (Zofran Inj) 4 mg Q6H PRN IVP 08/01/17 10:45 (Narcan Inj) 0.4 mg UNSCH PRN IV PUSH 08/01/17 10:45 (Rhonda-Colace) 1 tab BID PO 08/01/17 21:00 08/02/17 07:53 (Milk Of Magnesia Liq) 30 ml Q12H PRN PO 08/01/17 10:45 (Dulcolax Supp) 10 mg DAILY PRN RECTAL 08/01/17 10:45 (Glucagon Inj) 1 mg UNSCH PRN OTHER 08/01/17 10:45 (Oramorph Sr) 30 mg BID PO 08/01/17 21:00 08/03/17 09:18 Patient Own Medication 1 ea DAILY PO 08/02/17 09:00 08/03/17 09:00 Patient Own Medication PT OWN MED: lactobacillus acidophi... DAILY PO 08/02/17 09:00 Future Hold (Sandborn 5-325 Mg) 1 tab Q4H PRN PO 08/02/17 11:45 08/02/17 16:04 (Amaryl) 1 mg DAILY PO 08/03/17 09:00 08/03/17 09:18 (NovoLOG SUPPLEMENTAL SCALE) 1 ACHS SLIDING SCALE SQ 08/02/17 17:00 08/03/17 12:29 (Levemir Inj) 10 units Q12HR SQ 08/02/17 21:00 (Catapres) 0.1 mg Q6H PRN PO 08/03/17 10:30 Other Results Microbiology Date/Time Source Procedure Growth Status 08/01/17 19:51 Wound Toe Fungal Smear - Final NO FUNGAL ELEMENTS SEEN. Resulted 08/01/17 19:51 Wound Toe Fungal Culture Pending Resulted Physical Exam Remarks bandage clean, dry Assessment & Plan A/P s/p bone biopsy Nahun willis, Dr Barrios 08/01/17 Discussed with patient that I feel long-term antibiotics are not a good idea for him and have been stressing that to him over the past several months in conversations about his risk of and ultimate development of bony involvement due to chronic ulcerations and noncompliance and strongly recommend he consider amputation instead. I explained I will try to salvage proximal aspect of toe if soft tissue coverage allows. He is amenable to distal R hallux amputation. NPO after breakfast. Surgery tomorrow 1645. Consent ordered Alyssa Barrios DPM Aug 03, 2017 15:38
[2017-08-03] MEDS: cloNIDine HCL 0.1 MG TAB PO PRN (20:03)
--- NOTE | 2017-08-03 23:20 | MP ---
cc: SELAM LUNDY DPMac DATE OF SURGERY 08/01/17 DATE OF 1960 HISTORY The patient presented to my clinic on multiple occasions over the past several years with recurring wounds to various locations. He has had a wound for several months to the right distal hallux. He delayed getting outpatient imaging and finally did proceed with MRI which showed positive findings for osteomyelitis beneath the area of the distal phalanx of the right hallux. He had a wound to the plantar aspect of the great toe that continued to deteriorate and the toe continued to become larger and more swollen and I discussed with the patient that it would be in his best interest to undergo amputation of the distal aspect of the great toe. He was refusing treatment as far as this was concerned and wanted to move forward with possible IV antibiotics even though he only has kidney. I told him lets go into the hospital and get this figured out and he agreed to a bone biopsy of the area to determine further treatment as well as to go through with consultation to get more information about what his options were. PROCEDURE IN DETAIL He was seen in preop holding by myself, nursing staff and anesthesia, where the correct patient side and site were all confirmed to be correct in the right foot and the great toe. He was taken back to the surgical suite, placed in supine position where attention was directed to the right great toe. The wound was anesthetized using local anesthetic consisting of 10 mL 0.25% Marcaine plain. An incision was made after timeouts were performed as per hospital protocol and the right foot was prepped and draped in normal sterile fashion. The distal aspect of the hallux just dorsal to the area where the ulceration was located, a small stab incision was made followed by probing down to bone of the distal tip of the distal phalanx of the hallux. A Jamshidi needle was utilized in order to remove two pieces of bone. One was sent for bone culture was one was sent for bone biopsy, followed by irrigation and closure with 2-0 nylon suture followed by dressing consisting of Xeroform, 4x4, Leydi, tape and Vipin bandage to the right lower extremity. He tolerated the procedure and anesthesia well without complications and was taken back to PACU with vital signs stable and vascular status intact to the remainder of the right lower extremity. He will be weightbearing as tolerated in a surgical shoe and we will await bone biopsy results to have further discussions regarding treatment. SHORT OPERATIVE NOTE SURGEON Selam Lundy DPM COUNTER [employer]MER Staff. PREOPERATIVE DIAGNOSIS Osteomyelitis right hallux, distal phalanx. POSTOPERATIVE DIAGNOSIS Osteomyelitis right hallux, distal phalanx. PROCEDURE Bone biopsy and culture right distal phalanx of hallux. PATHOLOGY/SPECIMEN 1. Bone biopsy right distal phalanx of hallux. 2. Culture right distal phalanx of hallux. ESTIMATED BLOOD LOSS 2 mL. ANESTHESIA Sedation plus local consisting of 0.25% Marcaine plain x 10 mL. TOURNIQUET Not utilized. CONDITION Stable to PACU. COMPLICATIONS None. DISPOSITION Weightbearing as tolerated. Will evaluate the results to determine if further treatment is necessary and have him discuss with the appropriate specialists to make a more informed decision. Selam Lundy HM/MANUEL /5:44 PM /11:02 PM
[2017-08-04 00:58] VITALS: BP 159/70; PULSE 71; RESP 18; TEMP 98.5; O2SAT 99
[2017-08-04 08:00] VITALS: BP 188/89; PULSE 70; RESP 18; TEMP 97.9; O2SAT 98
[2017-08-04 08:23] LABS: AUTOMATED NEUTROPHIL # 5.8 TH/MM3 (1.8-7.7); BASOPHIL % 0.4 % (0.0-2.0); EOSINOPHIL # 0.3 TH/MM3 (0-0.4); EOSINOPHIL % 3.1 % (0.0-4.0); HEMATOCRIT 33.9 % (39.0-51.0); HEMO FLAGS DIFF FINAL; LYMPHOCYTE # 1.9 TH/MM3 (1.0-4.8); MEAN CORPUSCULAR HEMOGLOBIN 28.7 PG (27.0-34.0); MEAN CORPUSCULAR HGB CONC 33.8 % (32.0-36.0); MONO % 8.1 % (0.0-8.0); NEUT % 66.4 % (16.0-70.0); PLATELET COUNT 205 TH/MM3 (150-450); RED BLOOD COUNT 3.99 MIL/MM3 (4.50-5.90); RED CELL DISTRIBUTION WIDTH 13.9 % (11.6-17.2); WHITE BLOOD COUNT 8.8 TH/MM3 (4.0-11.0)
[2017-08-04 08:31] LABS: BICARBONATE 25.9 MEQ/L (21.0-32.0); MAGNESIUM 1.8 MG/DL (1.5-2.5); POTASSIUM 4.4 MEQ/L (3.5-5.1)
[2017-08-04] MEDS: PATIENT OWN MEDICATION PO SCH (09:00)
[2017-08-04] MEDS: INSULIN DETEMIR 100 UNITS/ML VIAL SQ SCH ×2 (09:00→20:42)
[2017-08-04] MEDS: SODIUM CHLORIDE 0.9% FLUSH 10 ML FLUSH IV FLUSH SCH ×2 (09:00→20:40)
[2017-08-04] MEDS: MORPHINE SULFATE 30 MG CONTROLLED RELEASE TAB PO SCH ×2 (10:49→20:39)
[2017-08-04] MEDS: GLIMEPIRIDE 1 MG TAB PO SCH (10:49)
[2017-08-04] MEDS: DOCUSATE SODIUM 50 MG/SENNA 8.6 MG TAB PO SCH ×2 (10:49→20:39)
[2017-08-04] MEDS: INSULIN ASPART SUPPLEMENTAL SCALE SQ SCH ×4 (10:51→20:53)
[2017-08-04] MEDS: cloNIDine HCL 0.1 MG TAB PO PRN (11:22)
--- NOTE | 2017-08-04 11:29 | HHI.PR ---
Subjective Remarks Pt complains of continued right arm swelling and pain, worse today per the pt He states that he had the nurses remove the IV from the right arm last night He is upset because he has not received his chronic narcotics yet this morning. Objective Vitals Vital Signs Date Time Temp Pulse Resp B/P (MAP) Pulse Ox O2 Delivery O2 Flow Rate FiO2 08/04/17 08:00 97.9 70 18 188/89 (122) 98 08/04/17 00:58 98.5 71 18 159/70 (99) 99 08/03/17 21:25 95 08/03/17 20:25 99.2 83 20 187/83 (117) 97 08/03/17 20:22 20 08/03/17 16:00 97.2 70 18 165/75 (105) 95 08/03/17 12:00 97.3 72 16 177/82 (113) 98 Result Diagram: 08/04/17 0711 08/04/17 0711 Other Results Laboratory Tests Test 08/04/17 07:11 White Blood Count 8.8 TH/MM3 Red Blood Count 3.99 MIL/MM3 Hemoglobin 11.5 GM/DL Hematocrit 33.9 % Mean Corpuscular Volume 85.0 FL Mean Corpuscular Hemoglobin 28.7 PG Mean Corpuscular Hemoglobin Concent 33.8 % Red Cell Distribution Width 13.9 % Platelet Count 205 TH/MM3 Mean Platelet Volume 7.8 FL Neutrophils (%) (Auto) 66.4 % Lymphocytes (%) (Auto) 22.0 % Monocytes (%) (Auto) 8.1 % Eosinophils (%) (Auto) 3.1 % Basophils (%) (Auto) 0.4 % Neutrophils # (Auto) 5.8 TH/MM3 Lymphocytes # (Auto) 1.9 TH/MM3 Monocytes # (Auto) 0.7 TH/MM3 Eosinophils # (Auto) 0.3 TH/MM3 Basophils # (Auto) 0.0 TH/MM3 CBC Comment DIFF FINAL Differential Comment Blood Urea Nitrogen 27 MG/DL Creatinine 1.65 MG/DL Random Glucose 200 MG/DL Calcium Level 8.8 MG/DL Magnesium Level 1.8 MG/DL Sodium Level 138 MEQ/L Potassium Level 4.4 MEQ/L Chloride Level 105 MEQ/L Carbon Dioxide Level 25.9 MEQ/L Anion Gap 7 MEQ/L Estimat Glomerular Filtration Rate 44 ML/MIN Imaging Last Impressions Foot X-Ray 08/01/17 0000 Signed Impressions: Service Date/Time: Tuesday, August 01, 2017 20:19 - CONCLUSION: Destructive and/or postoperative change at the distal first tuft of the distal first phalanx. Schuyler Downs MD Objective Remarks General: NAD, AAOx3 Chest: CTA Cardiac: Regular Abd: +BS, soft ND/NT Ext: Post operative dressing R foot dry and intact, right elbow with slight effusion and tenderness, no erythema Procedures Status post bone biopsy and culture right distal hallux (08/02/17) with Dr. Barrios A/P Problem List: (1) Osteomyelitis ICD Codes: M86.9 - Osteomyelitis, unspecified Status: Acute Plan: - Patient had an outpatient MRI done which revealed osteomyelitis of the right great toe. - Status post bone biopsy and culture right distal hallux (08/02/17) with Dr. Barrios - Will hold off on abx until after culture obtained - Pain control PRN with [place] 5/325 PO Q6H as needed for pain - Stop IVF today, right elbow slight effusion. IV in right antecubital fossa, move IV to different location, Apply warm compress and elevate elbow. If still painful/swollen tomorrow will order US - Surgical cultures are pending, no growth thus far - Pathology with acute osteomyelitis. - Pt planned for surgical intervention this afternoon with Dr. Barrios. - He has some right arm swelling and pain, obtain an US RUE to r/o DVT - Pt also with chronic constipation, he may take his own probiotic and fiber gummies - milk of magnesia as needed - Colace BID - Dulcolax supp as needed - DVT prophylaxis with SCDs (2) Diabetes mellitus ICD Codes: E11.9 - Type 2 diabetes mellitus without complications Status: Chronic Plan: - Patient takes 15 units Novolog subcutaneous before meals at bedtime and Tresiba 56 units subcutaneous twice a day- will hold at this time - Accu checks ACHS - Cont. Glimepiride 1 mg PO daily - Pt is on high dose SSI - BS are running high as he is refusing Levemir (3) CKD (chronic kidney disease), stage III ICD Codes: N18.3 - Chronic kidney disease, stage 3 (moderate) Status: Chronic Plan: - Pt with chronic kidney disease stage III with right nephrectomy at age 11 - Avoid nephrotoxic agents - Labs are stable, consistent with baseline (4) HTN (hypertension) ICD Codes: I10 - Essential (primary) hypertension Status: Chronic Plan: - monitor BP trend - hold home Lisinopril 40 mg daily due to elevated renal function - Clonidine PRN (5) Chronic pain ICD Codes: G89.29 - Other chronic pain Status: Chronic Plan: - Continue home medications Morphine ER 30 mg BID - Monitor for sedation Assessment and Plan Patient examined. Assessment and plan formulated with Trista Reynolds PA-C. I agree with the above. osteo of great toe with ulceration. swelling of right elbow. iv removed. dm ..poor control pt refusing levemir u/s rue to r/o dvt going to OR for partial toe amputation due to osteo f/u cx's Problem Qualifiers (1) Osteomyelitis: Qualified Codes: M86.9 - Osteomyelitis, unspecified (2) Diabetes mellitus: Trista Reynolds Aug 04, 2017 11:00 Harish Velasco MD Aug 04, 2017 12:26
[2017-08-04 12:00] VITALS: BP 184/84; PULSE 76; RESP 18; TEMP 98.1; O2SAT 96
[2017-08-04 13:33] VITALS: O2SAT 96
[2017-08-04] MEDS ORDERED: LABETALOL HCL 100 MG/20 ML VIAL IV ONE (13:44)
[2017-08-04] MEDS ORDERED: MIDAZOLAM HCL 2 MG/2 ML VIAL IV ONE (13:44)
[2017-08-04] MEDS ORDERED: LACTATED RINGER'S 1000 ML INJ 1,000 ML IV ONE (13:44)
--- NOTE | 2017-08-04 15:30 | RADRPT ---
EXAM DATE/TIME: 08/04/2017 14:31 [facility] COMPARISON: No previous studies available for comparison. INDICATIONS : Right arm swelling. MEDICAL HISTORY : Gastroesophageal reflux disease. Heart palpitations. Myocardial infarction. Hypertension. Diabet es. SURGICAL HISTORY : Tonsillectomy. Appendectomy. Cholecystectomy. Inguinal hernia repair, right. Nephrectomy, right. R ight shoulder surgery. ENCOUNTER: Initial ACUITY: 1 day PAIN SCORE: 3/10 LOCATION: Right arm. FINDINGS: There is spontaneous flow documented in the brachial, basilic, cephalic, axillary, and subclavian vei ns. The vessels are compressible and augmentation response is documented. No filling defects are se en. The flow is phasic with respiration. Direction of flow in the jugular vein is caudal. There is an oval fluid collection measuring up to 5.1 x 3 x 60.8 cm along the right elbow in the area of pain. CONCLUSION: 1. No evidence of deep venous thrombosis. 2. Fluid collection adjacent to the right elbow in the area of pain which is nonspecific. Bernardo Clinton MD on August 04, 2017 at 15:28 Board Certified Radiologist. This report was verified electronically.
[2017-08-04 16:00] VITALS: BP 192/88; PULSE 69; RESP 18; TEMP 97.5; O2SAT 98
[2017-08-04] MEDS ORDERED: LORazepam 1 MG TAB PO PRN (16:00)
[2017-08-04] MEDS ORDERED: BUPIVACAINE HCL PF 0.5% 30 ML VIAL ONE (17:39)
--- NOTE | 2017-08-04 19:01 | HHI.PR ---
Immediate Post Op Note Procedure Date: Aug 04, 2017 Pre Op Diagnosis: osteomyelitis R hallux, distal phalanx Post Op Diagnosis: same Surgeon: Alyssa Barrios DPM Generating Plant Superintendent(s): Staff Procedure: Amputation R distal hallux Findings: Consistent with diagnosis. Chronic ulceration to distal plantar aspect of R hallux. Bone biopsy positive for osteomyelitis. Distal aspect of digits removed in disarticulation at IP joint. No purulence noted. Clean white healthy appearing cartilage cap to distal aspect of proximal phalanx of hallux. Irrigation and primary closure after culture taken. Dressing with xeroform, 4x4, cast padding, mary grace. WBAT RLE in surgical shoe. Ok from podiatry standpoint to d/c on oral antibiotics x 2 weeks and follow up in clinic in 1 week for dressing change. keep current dressing clean, dry, intact. Wear surgical shoe at all times when ambulating. Additional Information: n/a Complications: none Specimen(s) removed: 1. culture R hallux Estimated blood loss: minimal Anesthesia: MAC, Local (10mL 0.5% marcaine plain) Drains: None Tourniquet time (min at mmHg) n/a Patient to: PACU Patient Condition: Good Date/Time of Procedure: SEE SURGICAL CARE RECORD Alyssa Barrios DPM Aug 04, 2017 19:01
[2017-08-04 20:00] VITALS: BP 163/75; PULSE 82; RESP 22; TEMP 96.3; O2SAT 99
--- NOTE | 2017-08-04 20:14 | RADRPT ---
EXAM DATE/TIME: 08/04/2017 19:20 [place] COMPARISON: FOOT RIGHT COMPLETE ([id number]), August 01, 2017, 20:19. INDICATIONS : Post amputation right distal great toe MEDICAL HISTORY : Gastroesophageal reflux disease. Heart palpitations. Hypertension. Diabetes Myocardial infarction SURGICAL HISTORY : Tonsillectomy. Appendectomy. Cholecystectomy. Inguinal hernia repair, right. Nephrectomy, right. Righ t shoulder surgery. ENCOUNTER: Initial ACUITY: 1 day PAIN SCORE: 0/10 LOCATION: Right Foot FINDINGS: Three view examination of the right foot demonstrates the patient is status post amputation of the di stal first phalanx. The remaining bones are normally aligned. No fractures or areas of periosteal regina ction or bony destruction are seen. There is a calcaneal spur at the plantar aponeurosis attachment s ite. CONCLUSION: Status post amputation of the distal first phalanx. Schuyler Downs MD on August 04, 2017 at 20:10 Board Certified Radiologist. This report was verified electronically.
[2017-08-05] VITALS (7 sets, daily range): BP systolic 144–184; BP diastolic 65–84; PULSE 78–85; RESP 17–20; TEMP 97–99.6; O2SAT 95–99
[2017-08-05] MEDS: INSULIN DETEMIR 100 UNITS/ML VIAL SQ SCH ×2 (09:00→20:38)
[2017-08-05] MEDS: PATIENT OWN MEDICATION PO SCH (09:00)
[2017-08-05] MEDS: MORPHINE SULFATE 30 MG CONTROLLED RELEASE TAB PO SCH ×2 (09:24→20:37)
[2017-08-05] MEDS: GLIMEPIRIDE 1 MG TAB PO SCH (09:24)
[2017-08-05] MEDS: DOCUSATE SODIUM 50 MG/SENNA 8.6 MG TAB PO SCH ×2 (09:24→20:38)
[2017-08-05] MEDS: INSULIN ASPART SUPPLEMENTAL SCALE SQ SCH ×4 (09:25→21:47)
[2017-08-05] MEDS: SODIUM CHLORIDE 0.9% FLUSH 10 ML FLUSH IV FLUSH SCH ×2 (09:26→20:36)
--- NOTE | 2017-08-05 10:27 | HHI.PR ---
Subjective Remarks Pt reports that his right elbow is still painful He has complaints about the fact that dietary requires him to order carbs when he orders his meals and that the nurses are checking his blood sugars after he eats which is giving him higher readings. Objective Vitals Vital Signs Date Time Temp Pulse Resp B/P (MAP) Pulse Ox O2 Delivery O2 Flow Rate FiO2 08/05/17 08:00 98.7 78 17 153/83 (106) 99 08/05/17 04:00 98.8 85 20 169/80 (109) 95 08/05/17 00:00 98.6 82 20 160/70 (100) 97 08/04/17 21:39 18 08/04/17 20:00 96.3 82 22 163/75 (104) 99 08/04/17 16:00 97.5 69 18 192/88 (122) 98 08/04/17 13:33 96 08/04/17 12:00 98.1 76 18 184/84 (117) 96 Result Diagram: 08/04/17 0711 08/04/17 0711 Other Results Laboratory Tests Test 08/04/17 07:11 White Blood Count 8.8 TH/MM3 Red Blood Count 3.99 MIL/MM3 Hemoglobin 11.5 GM/DL Hematocrit 33.9 % Mean Corpuscular Volume 85.0 FL Mean Corpuscular Hemoglobin 28.7 PG Mean Corpuscular Hemoglobin Concent 33.8 % Red Cell Distribution Width 13.9 % Platelet Count 205 TH/MM3 Mean Platelet Volume 7.8 FL Neutrophils (%) (Auto) 66.4 % Lymphocytes (%) (Auto) 22.0 % Monocytes (%) (Auto) 8.1 % Eosinophils (%) (Auto) 3.1 % Basophils (%) (Auto) 0.4 % Neutrophils # (Auto) 5.8 TH/MM3 Lymphocytes # (Auto) 1.9 TH/MM3 Monocytes # (Auto) 0.7 TH/MM3 Eosinophils # (Auto) 0.3 TH/MM3 Basophils # (Auto) 0.0 TH/MM3 CBC Comment DIFF FINAL Differential Comment Blood Urea Nitrogen 27 MG/DL Creatinine 1.65 MG/DL Random Glucose 200 MG/DL Calcium Level 8.8 MG/DL Magnesium Level 1.8 MG/DL Sodium Level 138 MEQ/L Potassium Level 4.4 MEQ/L Chloride Level 105 MEQ/L Carbon Dioxide Level 25.9 MEQ/L Anion Gap 7 MEQ/L Estimat Glomerular Filtration Rate 44 ML/MIN Imaging Last Impressions Upper Extremity Ultrasound 08/04/17 0000 Signed Impressions: Service Date/Time: July 14:31 - CONCLUSION: 1. No evidence of deep venous thrombosis. 2. Fluid collection adjacent to the right elbow in the area of pain which is nonspecific. Bernardo Clinton MD Foot X-Ray 08/04/17 0000 Signed Impressions: Service Date/Time: July 19:20 - CONCLUSION: Status post amputation of the distal first phalanx. Schuyler Downs MD Last Impressions Foot X-Ray 08/01/17 0000 Signed Impressions: Service Date/Time: Tuesday, August 01, 2017 20:19 - CONCLUSION: Destructive and/or postoperative change at the distal first tuft of the distal first phalanx. Schuyler Downs MD Objective Remarks General: NAD, AAOx3 Chest: CTA Cardiac: Regular Abd: +BS, soft ND/NT Ext: Post operative dressing R foot dry and intact, right elbow with slight effusion and tenderness, no erythema Procedures Status post bone biopsy and culture right distal hallux (08/02/17) with Dr. Barrios A/P Problem List: (1) Osteomyelitis ICD Codes: M86.9 - Osteomyelitis, unspecified Status: Acute Plan: - Patient had an outpatient MRI done which revealed osteomyelitis of the right great toe. - Status post bone biopsy and culture right distal hallux (08/02/17) with Dr. Barrios - Surgical cultures are pending, no growth thus far - Pathology (08/02) with acute osteomyelitis. - Pain control PRN with [place] 5/325 PO Q6H as needed for pain - Pt subsequently underwent amputation R distal hallux on 08/04/[address] Barrios. - Pathology (08/04) is pending. - Surgical cultures are pending. - IVF stopped on 08/03 due to right elbow effusion. IV in right antecubital fossa , move IV to different location, Apply warm compress and elevate elbow. - RUE US was negative for DVT but did note a fluid collection adjacent to the right elbow in the area of pain which is nonspecific. - Pt has been afebrile, no clinical evidence of infection - Cont. warm compresses and if no improvement or worsening consider further imaging, CT of the RUE - Pt also with chronic constipation, he may take his own probiotic and fiber gummies - milk of magnesia as needed - Colace BID - Dulcolax supp as needed - DVT prophylaxis with SCDs (2) Diabetes mellitus ICD Codes: E11.9 - Type 2 diabetes mellitus without complications Status: Chronic Plan: - Patient takes 15 units Novolog subcutaneous before meals at bedtime and Tresiba 56 units subcutaneous twice a day- will hold at this time - Accu checks ACHS - Cont. Glimepiride 1 mg PO daily - Pt is on high dose SSI - BS are running high as he is refusing Levemir - Pt reports that his BS are being taken after he eats and that dietary is requiring him to order carbs with each meal. These concerns were discussed with the Charge Nurse on 08/05 who will address with Extractor Filler and the Nurse. (3) CKD (chronic kidney disease), stage III ICD Codes: N18.3 - Chronic kidney disease, stage 3 (moderate) Status: Chronic Plan: - Pt with chronic kidney disease stage III with right nephrectomy at age 11 - Avoid nephrotoxic agents - Labs are stable, consistent with baseline (4) HTN (hypertension) ICD Codes: I10 - Essential (primary) hypertension Status: Chronic Plan: - Resume Lisinopril 40 mg daily - Clonidine PRN (5) Chronic pain ICD Codes: G89.29 - Other chronic pain Status: Chronic Plan: - Continue home medications Morphine ER 30 mg BID - Monitor for sedation Assessment and Plan Patient examined. Assessment and plan formulated with Trista Reynolds PA-C. I agree with the above. amputation of infected toe/osteo. path pending no organism identified on bone cx 2 weeks abx po recommended per podiatry and f/u office. pt being held due to right elbow swelling and tenderness on post side. ?bursitis. no dvt. no clinical evidence of cellulitis. will try iv solumedrol overnight. if no better possible mri. the iv site in AC area was free of infection/thrombus signs and it was removed 2 days ago. Problem Qualifiers (1) Osteomyelitis: Qualified Codes: M86.9 - Osteomyelitis, unspecified (2) Diabetes mellitus: Trista Reynolds Aug 05, 2017 10:27 Harish Velasco MD Aug 05, 2017 16:11
[2017-08-05] MEDS: LISINOPRIL 20 MG TAB PO SCH (12:48)
[2017-08-05] MEDS ORDERED: methylPREDNISolone SOD SUCC 125 MG/2 ML VIAL IV PUSH ONE (16:00)
--- NOTE | 2017-08-05 19:51 | PD.POD ---
Subjective Podiatric Problems s/p bone biopsy R hallux, Dr Barrios 08/01/17, s/p R distal hallux amputation Dr Barrios Past Med/Surg/Social History Social History Smoking Status: Current Every Day Smoker Objective Vital Signs Vital Signs Date Time Temp Pulse Resp B/P (MAP) Pulse Ox O2 Delivery O2 Flow Rate FiO2 08/05/17 16:00 99.6 79 18 144/65 (91) 98 08/05/17 14:00 97.0 81 18 170/74 (106) 99 08/05/17 12:00 99.1 81 17 183/84 (117) 98 08/05/17 12:00 99 08/05/17 08:00 98.7 78 17 153/83 (106) 99 08/05/17 04:00 98.8 85 20 169/80 (109) 95 08/05/17 00:00 98.6 82 20 160/70 (100) 97 08/04/17 21:39 18 08/04/17 20:00 96.3 82 22 163/75 (104) 99 Coded Allergies: No Known Allergies (Verified , 08/01/17) Physical Exam Remarks Bandage R foot clean, dry, intact Assessment & Plan A/P s/p bone biopsy R hallux, Dr Barrios 08/01/17 s/p distal R hallux amputation, Dr Barrios 08/04/17 Keep dressing clean, dry, intact WBAT R foot in surgical shoe Follow up in clinic next Tuesday, [place] office and bandage will be changed then Podiatry ok with d/c when ok with primary team Alyssa Barrios DPM Aug 05, 2017 19:51
[2017-08-05] MEDS ORDERED: LATANOPROST 0.005% OPHT SOLN 2.5 ML BTL EACH EYE SCH (21:00)
[2017-08-05] MEDS: DORZOLAMIDE/TIMOLOL OPTH SOLN 10 ML BTL EACH EYE SCH (22:03)
[2017-08-05] MEDS: methylPREDNISolone SOD SUCC 125 MG/2 ML VIAL IV PUSH SCH (22:03)
[2017-08-05] MEDS: SODIUM CHLORIDE 0.9% FLUSH 10 ML FLUSH IV FLUSH PRN (22:04)
[2017-08-06] VITALS: BP 167/70; PULSE 78; RESP 20; TEMP 97.1; O2SAT 96
[2017-08-06] MEDS: methylPREDNISolone SOD SUCC 125 MG/2 ML VIAL IV PUSH SCH (03:08)
[2017-08-06] MEDS: SODIUM CHLORIDE 0.9% FLUSH 10 ML FLUSH IV FLUSH PRN (03:09)
[2017-08-06 08:00] VITALS: BP 182/88; PULSE 75; RESP 18; TEMP 96.3; O2SAT 95
[2017-08-06] MEDS: INSULIN ASPART SUPPLEMENTAL SCALE SQ SCH ×2 (08:19→12:03)
[2017-08-06] MEDS: MORPHINE SULFATE 30 MG CONTROLLED RELEASE TAB PO SCH (08:19)
[2017-08-06] MEDS: LISINOPRIL 20 MG TAB PO SCH (08:19)
[2017-08-06] MEDS: GLIMEPIRIDE 1 MG TAB PO SCH (08:20)
[2017-08-06] MEDS: INSULIN DETEMIR 100 UNITS/ML VIAL SQ SCH (08:20)
[2017-08-06] MEDS: DOCUSATE SODIUM 50 MG/SENNA 8.6 MG TAB PO SCH (08:20)
[2017-08-06] MEDS: DORZOLAMIDE/TIMOLOL OPTH SOLN 10 ML BTL EACH EYE SCH (08:23)
[2017-08-06] MEDS: PATIENT OWN MEDICATION PO SCH (09:00)
--- NOTE | 2017-08-06 09:23 | HHI.FF ---
Face to Face Verification Diagnosis: (1) Osteomyelitis (2) Diabetes mellitus (3) HTN (hypertension) (4) Chronic pain (5) CKD (chronic kidney disease), stage III Home Health Nursing Order: Wound care and dressing changes (current dressing to stay in place until followup appt with Dr. Barrios on Tuesday, 08/10, then further orders for dressing changes to be determined at that time per Dr. Barrios orders. ) Nursing assessment with vital signs I have seen patient Bernardo Hughes on 08/06/17. My clinical findings support the need for the requested home health care services because: Infection w/ risk of complications I certify that my clinical findings support that this patient is homebound because: Post-op weakness Trista Reynolds Aug 06, 2017 09:23
[2017-08-06] MEDS ORDERED: COMMODE 3-IN-11 MIS (09:31)
[2017-08-06] MEDS ORDERED: CANE/ALUMINUM/A1 MIS (09:31)
[2017-08-06] MEDS ORDERED: TRAD5TAB PO (09:36)
[2017-08-06] MEDS ORDERED: LISI40TA PO (09:36)
[2017-08-06] MEDS ORDERED: DORZ2SOL15 EACH EYE (09:36)
[2017-08-06] MEDS ORDERED: SIMV20TA PO (09:36)
[2017-08-06] MEDS ORDERED: LATA0.002 EACH EYE (09:36)
--- NOTE | 2017-08-06 09:45 | HHI.DCPOC ---
Discharge Care Plan Diagnosis: (1) Diabetes mellitus (2) HTN (hypertension) (3) Chronic pain (4) CKD (chronic kidney disease), stage III (5) Osteomyelitis Goals to Promote Your Health * To prevent worsening of your condition and complications - Keep dressing clean, dry, intact - Weight bear as tolerated to the Right foot in surgical shoe - Follow up in clinic with Dr. Barrios next Tuesday, 08/10, at [facility] and bandage will be changed then. Call for appt time. - Complete antibiotic regimen with Levaquin 250mg once daily x 10 days - Followup with Dr. Hdez in 1 week to followup on the right elbow pain, call for an appt. Directions to Meet Your Goals Take your medications as prescribed Follow your dietary instruction Follow activity as directed Keep your appointments as scheduled Take your immunizations and boosters as scheduled If your symptoms worsen call your PCP, if no PCP go to Urgent Care Center or Emergency Room Smoking is Dangerous to Your Health. Avoid second hand smoke Call the 24-hour hour crisis hotline for domestic abuse at Trista Reynolds Aug 06, 2017 09:45
[2017-08-06] MEDS ORDERED: LEVO250T7 PO (09:54)
[2017-08-06] MEDS ORDERED: PRED20 PO (09:54)
[2017-08-06 10:08] VITALS: O2SAT 98
[2017-08-06 12:00] VITALS: BP 171/79; PULSE 73; RESP 17; TEMP 96.1; O2SAT 98
[2017-08-06] MEDS: SODIUM CHLORIDE 0.9% FLUSH 10 ML FLUSH IV FLUSH SCH (12:04)
--- NOTE | 2017-08-06 14:39 | HHI.DS ---
Discharge Summary Admission Date Aug 01, 2017 at 10:08 Discharge Date: Aug 06, 2017 Admitting Diagnosis Osteomyelitis of right great toe (1) Osteomyelitis Diagnosis: Principal ICD Codes: M86.9 - Osteomyelitis, unspecified Status: Acute (2) Diabetes mellitus Diagnosis: Secondary ICD Codes: E11.9 - Type 2 diabetes mellitus without complications Status: Chronic (3) CKD (chronic kidney disease), stage III Diagnosis: Secondary ICD Codes: N18.3 - Chronic kidney disease, stage 3 (moderate) Status: Chronic (4) HTN (hypertension) Diagnosis: Secondary ICD Codes: I10 - Essential (primary) hypertension Status: Chronic (5) Chronic pain Diagnosis: Secondary ICD Codes: G89.29 - Other chronic pain Status: Chronic Procedures Status post bone biopsy and culture right distal hallux (08/02/17) with Dr. Barrios Brief History This 57-year-old male patient with past medical history which includes right nephrectomy at age 11, hypertension, diabetes mellitus with severe peripheral neuropathy, chronic back pain, spinal stenosis and glaucoma. The patient has been following with felt strip finisher Dr. Barrios for the past 3 months. Patient reports it started as a callus on the right great toe at that time also had a black toenail believes he, "smashed," the toe but does not recall any particular incidence as he has advanced peripheral neuropathy. Patient had an outpatient MRI done which revealed osteomyelitis of the right great toe. Patient was sent here by Dr. Barrios for bone biopsy and culture this evening. Patient denies pain, without odor odor from the ulceration plantar surface right great toe. Patient also denies fevers chills nausea vomiting shortness of breath or chest pain. Patient does take morphine sulfate extended release 30 mg twice a day and suffers with chronic constipation for which she takes probiotic and hyperkalemia daily at home. Patient patient reports he has had, "bad reactions," to general anesthesia in the past. Patient reports after shoulder surgery he was very violent coming out of anesthesia and also reports during an endoscopy he had respiratory distress. Patient does not want general anesthesia. Patient offers no other complaints at this time CBC/BMP: 08/04/17 0711 08/04/17 0711 Significant Findings Laboratory Tests Test 08/04/17 07:11 Red Blood Count 3.99 MIL/MM3 (4.50-5.90) Hemoglobin 11.5 GM/DL (13.0-17.0) Hematocrit 33.9 % (39.0-51.0) Monocytes (%) (Auto) 8.1 % (0.0-8.0) Blood Urea Nitrogen 27 MG/DL (7-18) Creatinine 1.65 MG/DL (0.60-1.30) Random Glucose 200 MG/DL (74-106) Estimat Glomerular Filtration Rate 44 ML/MIN (>89) Hospital Course (1) Osteomyelitis - Patient had an outpatient MRI done which revealed osteomyelitis of the right great toe. - Status post bone biopsy and culture right distal hallux (08/02/17) with Dr. Barrios - Surgical cultures no growth thus far - Pathology (08/02) with acute osteomyelitis. - Pt subsequently underwent amputation R distal hallux on 08/04/[address] Barrios. - Pathology (08/04) is pending. - Surgical cultures are pending. - IVF stopped on 08/03 due to right elbow effusion. IV in right antecubital fossa , move IV to different location, Apply warm compress and elevate elbow. - RUE US was negative for DVT but did note a fluid collection adjacent to the right elbow in the area of pain which is nonspecific. - Pt has been afebrile, no clinical evidence of infection - Cont. warm compresses. pt given solumedrol overnight for possible bursitis. It did resolved the swelling and pt has full range of motion. will plan for prednisone taper and pcp f/u. Pt cleared for d/c by podiatry. f/u this week Tuesday to unwrap wound. [facility] ordered. Podiatry requested he complete course of po abx for soft tissue infection. (2) Diabetes mellitus - Patient takes 15 units Novolog subcutaneous before meals at bedtime and Tresiba 56 units subcutaneous twice a day- - His tresiba was nonformulary and he refused to use basal levemir insulin. bg remained high and it worsened with steroid (3) CKD (chronic kidney disease), stage III ICD Codes: N18.3 - Chronic kidney disease, stage 3 (moderate) Status: Chronic Plan: - Pt with chronic kidney disease stage III with right nephrectomy at age 11 - Avoid nephrotoxic agents - Labs are stable, consistent with baseline (4) HTN (hypertension) ICD Codes: I10 - Essential (primary) hypertension Status: Chronic Plan: - Resume Lisinopril 40 mg daily - Clonidine PRN (5) Chronic pain ICD Codes: G89.29 - Other chronic pain Status: Chronic Plan: - Continue home medications Morphine ER 30 mg BID - Monitor for sedation Pt Condition on Discharge: Stable Discharge Disposition: Disch w/ Home Health Serv Discharge Instructions DIET: Follow Instructions for: Diabetic Diet Activities you can perform: Weight Bearing as Sinan, See Additionl Instruction Other Activity Instructions: WBAT in the post-op shoe Follow up Referrals: PCP Follow-up - [address] Marty Aaron Podiatry - 08/10/17 with Alyssa Barrios DPM New Medications: Cane/Aluminum/Adjustable (Cane/Aluminum/Adjustable) 1 Mis Mis EA .ROUTE DIRECTED, #1 Commode 3-in-1 (Commode 3-in-1) 1 Mis Mis EA .ROUTE DIRECTED, #1 0 Refills Levofloxacin (Levofloxacin) 250 Mg Tablet 250 MG PO DAILY for Infection for 10 Days, #10 TAB 0 Refills Prednisone (Prednisone) 20 Mg Tab 20 MG PO DIRECTED for Inflammation, #7 TAB 0 Refills Take 20 MG twice daily x 2 days, then 20 MG daily x 2 days, then 10 MG daily x 1 day, then stop. Continued Medications: Cod Liver Oil (Sm Cod Liver Oil) 1,250 Unit-135 Unit Cap 415 MG PO DAILY Dorzolamide-Timolol Opth Drops (Dorzolamide-Timolol Opth Drops) 22.3-6.8 Mg/Ml Soln 1 DROP EACH EYE BID for Glaucoma, BOTTLE 0 Refills Glimepiride (Glimepiride) 1 Mg Tab 1 MG PO DAILY for Blood Sugar Management, TAB 0 Refills Take with breakfast or first main meal Hydrochlorothiazide (Hydrochlorothiazide) 25 Mg Tab 25 MG PO DAILY, TAB 0 Refills Insulin Aspart Inj (Novolog Flexpen Inj) 300 Unit/3 Ml Pen 15 UNITS SQ ACHS for Blood Sugar Management, PEN 0 Refills Insulin Degludec Inj (Tresiba Flextouch Pen Inj) 300 unit/3 ML Pen 56 UNITS SQ BID for Blood Sugar Management, ML 0 Refills Inulin (Fiber Gummies) 2 Gram Tab.chew 2 GM PO DAILY Lactobacillus Acidophilus (Probiotic) 10 Billion Cell Cap 3 CAP PO DAILY for Nutritional Supplement, CAP 0 Refills Latanoprost Opth Drops (Latanoprost Opth Drops) 0.005% Drops 1 DROP EACH EYE HS for Glaucoma, #2.5 ML 0 Refills Refrigerate until opened. Linagliptin (Tradjenta) 5 Mg Tab 5 MG PO DAILY for Blood Sugar Management, #30 TAB 0 Refills Lisinopril (Lisinopril) 40 Mg Tab 40 MG PO DAILY for Blood Pressure Management, #30 TAB 0 Refills Morphine ER (Morphine ER) 30 Mg Tab 30 MG PO BID for Pain Management, TAB 0 Refills Simvastatin (Simvastatin) 20 Mg Tab 20 MG PO DAILY for Cholesterol Management, #30 TAB 0 Refills Harish Velasco MD Aug 06, 2017 14:39
[2017-08-06] MEDS ORDERED: MISCMIS81 (15:01)
--- NOTE | 2017-08-13 17:00 | MP ---
cc: ALYSSA LUNDY DPM DATE OF SURGERY August 04, 2017 INDICATIONS The patient presented to the emergency department for evaluation and treatment of osteomyelitis to the right distal phalanx of the great toe. He was refusing amputation at that time and upon further discussion and a positive bone biopsy from previous surgery to the right hallux distal phalanx he has agreed to undergo amputation of the distal hallux on the right foot. DETAILS OF PROCEDURE He was seen in preop holding by myself, nursing staff and Anesthesia where the correct patient, side and site were all confirmed to be correct and the right foot. He was then taken to the surgical suite, placed in supine position where the right foot was prepped and draped in normal sterile fashion followed by time-outs as per facility protocol. The right foot was prepped and draped in normal sterile fashion followed by two dorsal and plantar fishmouth incision made in order to disarticulate the distal phalanx at the interphalangeal joint of the great toe on the right side. The distal aspect of digit was removed in disarticulation at the IP joint. No purulence was noted. It was cleaned, clean white healthy appearing cartilage cap to the distal aspect of the proximal phalanx of the hallux. The area was copiously irrigated followed by primary closure after culture was taken followed by dressing consisting of Xeroform, 4x4, cast padding and Vipin bandage to the right lower extremity. He tolerated the procedure and anesthesia well without complications and secondary to surgical cure for osteomyelitis. The patient will be weightbearing as tolerated the right lower extremity, surgical shoe and follow up in clinic in 1 week for dressing change. I am okay with discharge on broad-spectrum oral antibiotics and follow up in clinic in 2 weeks and if the cultures do surprisingly come back to be positive I will change the antibiotics in the clinic as needed. The patient was taken to PACU with vital signs stable and vascular status intact to remainder of the right foot. He tolerated procedure and anesthesia well. SHORT OPERATIVE NOTE SURGEON Alyssa Lundy DPM [employer] Staff. PREOPERATIVE DIAGNOSIS Osteomyelitis right hallux, distal pharynx. POSTOPERATIVE DIAGNOSIS Osteomyelitis right hallux, distal pharynx. PROCEDURE Amputation right distal hallux. ANESTHESIA MAC plus local consisting of 10 mL 0.5% Marc[place] plain. ESTIMATED BLOOD LOSS Minimal. SPECIMEN Culture right hallux. COMPLICATIONS None. CONDITION Stable to PACU. DISPOSITION Weightbearing as tolerated and surgical shoe. Follow up in clinic in 1 week. Alyssa CLINE /12:40 PM /4:44 PM
== END 2017-08-06 15:19 | disposition home or self-care (01) | DRG 479 ==
LOC: NEPC 07:40 → NEDA 10:08 → NEPFCDU 14:12 → N07B 17:43
PROVIDERS: ADMIT Hospitalist; ATTEND Hospitalist
PROC: 0QBQ0ZX Excision of Right Toe Phalanx, Open Approach, Diagnostic (ICD-10-PCS; principal; 2017-08-03)
DX: M86.172 Other acute osteomyelitis, left ankle and foot (principal); E11.22 Type 2 diabetes mellitus with diabetic chronic kidney disease; E11.42 Type 2 diabetes mellitus with diabetic polyneuropathy; I12.9 Hypertensive chronic kidney disease with stage 1 through stage 4 chronic kidney disease, or unspecified chronic kidney disease; N18.3 Chronic kidney disease, stage 3 (moderate); E11.621 Type 2 diabetes mellitus with foot ulcer; G89.29 Other chronic pain; M89.8X2 Other specified disorders of bone, upper arm; K21.9 Gastro-esophageal reflux disease without esophagitis; K59.09 Other constipation; L97.509 Non-pressure chronic ulcer of other part of unspecified foot with unspecified severity; Z79.4 Long term (current) use of insulin; Z79.899 Other long term (current) drug therapy; F17.290 Nicotine dependence, other tobacco product, uncomplicated
CPT/HCPCS: 73630; 80048; 80053; 82948; 83735; 85025; 85610; 85730; 86850; 86900; 86901; 87015; 87070; 87102; 87116; 87205; 87206; 88305; 88307; 88311; 93005; 93971; J1815; J2250; J2930; J7030; J7120; L3260

== ENCOUNTER 2018-01-01 11:44 | Inpatient (IN) | payer BC, MEDICARE, OTHER ==
[~2018-01-01] VITALS: Ht 167.6 cm; Wt 99.7 kg
[~2018-01-01 11:44] MED LIST changes: -AMIT25TA20 PO; +CANE/ALUMINUM/A1 MIS; +COMMODE 3-IN-11 MIS; -DIFL500T PO; +DORZ2SOL15 EACH EYE; -ENAL10TA7 PO; +GLIM1TAB PO; -HYDR10SO PO; -HYDR10TA16 PO; +HYDR25TA5 PO; +INSU1INJ14 SQ; +INUL2TAB2 PO; +LACTCAP8 PO; +LATA0.002 EACH EYE; +LEVO250T7 PO; +LISI40TA PO; -METH750T2 PO; +MISCMIS81; +MORP1TAB25 PO; +NOVOINJ3 SQ; -PARO10TA; +PRED20 PO; +SIMV20TA PO; +TRAD5TAB PO; +[UNRECOGNIZED DRUG - CODE] PO
[2018-01-01 11:52] VITALS: BP 96/54; PULSE 79; RESP 18; TEMP 98.2
--- NOTE | 2018-01-01 12:44 | PD ---
HPI Chief Complaint: Injury Time Seen by Provider: 12:22 Travel History International Travel<30 days: No Contact w/Intl Traveler<30days: No Traveled to known affect area: No History of Present Illness HPI 57-year-old male presents emergency department concerned about osteomyelitis of the left foot. States that he saw his blade sharpener Tuesday and recommended he come to the emergency department today for evaluation by her tomorrow. Patient denies fevers or chills. Denies significant pain to the area. States that this wound to his left lateral foot began 2 weeks ago as a blister and has progressively become deeper. States that he has had some exudate without bloody discharge. Denies numbness or tingling to extremities. Denies significant edema. Patient states that Dr. Barrios is his blade sharpener and packed the wound Tuesday. He was not placed on antibiotics as he "has only one kidney" and they are concerned about toxicity. Says his blood sugar is 100-160s. PFSH Past Medical History Arthritis: No Asthma: No Blood Disorders: No Anxiety: No Depression: Yes Heart Rhythm Problems: Yes Cancer: No Cardiovascular Problems: Yes (HEART PALPITATIONS) High Cholesterol: Yes Chest Pain: No Congestive Heart Failure: No COPD: No Cerebrovascular Accident: No Diabetes: Yes Patient Takes Glucophage: Yes Diminished Hearing: No Endocrine: Yes Gastrointestinal Disorders: Yes GERD: Yes Glaucoma: Yes Genitourinary: No Headaches: Yes Hepatitis: No Hiatal Hernia: No Hypertension: Yes Immune Disorder: No Musculoskeletal: Yes Neurologic: Yes (PERIPHERAL NEUROPATHY) Psychiatric: No Reproductive: No Respiratory: No Migraines: No Myocardial Infarction: Yes Seizures: No Sleep Apnea: Yes Thyroid Disease: No Ulcer: No Tetanus Vaccination: Unknown Influenza Vaccination: No ?: Not Past Surgical History Abdominal Surgery: Yes (RIGHT INGUINAL HERNIA REPAIR) Appendectomy: Yes Cardiac Surgery: No Cholecystectomy: Yes Ear Surgery: No Endocrine Surgery: Yes (RIGHT NEPHRECTOMY AGE 11) Eye Surgery: No Genitourinary Surgery: Yes (RIGHT NEPHRECTOMY) Gynecologic Surgery: No Oral Surgery: No Thoracic Surgery: No Tonsillectomy: Yes Other Surgery: Yes (RIGHT KIDNEY REMOVED AT AGE 11) Social History Alcohol Use: Yes (RARELY) Tobacco Use: Yes (OCCASIONAL CIGAR) Substance Use: No Allergies-Medications (Allergen,Severity, Reaction): Coded Allergies: No Known Allergies (Verified , 08/01/17) Reported Meds & Prescriptions Reported Meds & Active Scripts Active Morphine ER (Morphine Sulfate) 30 Mg Tab 30 Mg PO BID Reported Super B Complex (Vitamin B Complex Vit C No.4) 150 Mg Tablet 1 Tab PO DAILY Vitamin D3 (Cholecalciferol) 2,000 Unit Cap 2,000 Units PO DAILY Gabapentin 100 Mg Cap 200 Mg PO BID Probiotic (Lactobacillus Combo No.10) 20 Billion Cell Capsule 1 Cap PO DAILY Dorzolamide Opth Drops (Dorzolamide HCl) 2% Soln 1 Drop EACH EYE BID [place] Cod Liver Oil (Cod Liver Oil) 1 Cap 415 Mg PO DAILY Latanoprost Opth Drops (Latanoprost) 0.005% Drops 1 Drop EACH EYE HS Refrigerate until opened. Lisinopril 40 Mg Tab 40 Mg PO DAILY Fiber Gummies (Inulin) 2 Gram Tab.chew 2 Gm PO BID Tresiba Flextouch Pen Inj (Insulin Degludec Inj) 300 unit/3 ML Pen 56 Units SQ HS Novolog Flexpen Inj (Insulin Aspart) 300 Unit/3 Ml Pen 15 Units SQ TIDAC Hydrochlorothiazide 25 Mg Tab 25 Mg PO DAILY Glimepiride 1 Mg Tab 1 Mg PO DAILY Take with breakfast or first main meal Review of Systems Except as stated in HPI: all other systems reviewed are Neg Physical Exam Narrative GENERAL: WD, WN in NAD SKIN: Focused skin assessment warm/dry. HEAD: Atraumatic. Normocephalic. EYES: Pupils equal and round. No scleral icterus. No injection or drainage. ENT: No nasal bleeding or discharge. Mucous membranes pink and moist. NECK: Trachea midline. No JVD. No lymphadenopathy CARDIOVASCULAR: Regular rate and rhythm. No murmur appreciated. RESPIRATORY: No accessory muscle use. Clear to auscultation. Breath sounds equal bilaterally. GASTROINTESTINAL: Abdomen soft, non-tender, nondistended. MUSCULOSKELETAL: No obvious deformities. No clubbing. No cyanosis. No edema. Left foot- lateral aspect of 5th MTP 1cm round ulcer with white exudate, no bleeding, 1-1.5cm depth. Pulse, motor, sensory intact. Right foot- distal great toe s/p amputation NEUROLOGICAL: Awake and alert. No obvious cranial nerve deficits. Motor grossly within normal limits. Normal speech. PSYCHIATRIC: Appropriate mood and affect; insight and judgment normal. Data Data Last Documented VS Vital Signs Date Time Temp Pulse Resp B/P (MAP) Pulse Ox O2 Delivery O2 Flow Rate FiO2 01/01/18 13:04 69 18 122/63 (82) 100 Room Air 01/01/18 11:52 98.2 Orders Orders Basic Metabolic Panel (Bmp) (01/01/18 12:34) Complete Blood Count With Diff (01/01/18 12:34) Wound Culture And Gram Stain (01/01/18 12:34) Iv Access Insert/Monitor (01/01/18 12:34) Westergren Sedimentation Rate (01/01/18 12:34) C-Reactive Protein (Crp) (01/01/18 12:34) Admit Order (Ed Use Only) (01/01/18 14:40) Mri Foot W/O Contrast (01/01/18 ) Labs Laboratory Tests Test 01/01/18 13:01 White Blood Count 10.7 TH/MM3 Red Blood Count 3.80 MIL/MM3 Hemoglobin 10.6 GM/DL Hematocrit 31.5 % Mean Corpuscular Volume 82.9 FL Mean Corpuscular Hemoglobin 27.8 PG Mean Corpuscular Hemoglobin Concent 33.6 % Red Cell Distribution Width 15.2 % Platelet Count 259 TH/MM3 Mean Platelet Volume 7.9 FL Neutrophils (%) (Auto) 66.8 % Lymphocytes (%) (Auto) 19.3 % Monocytes (%) (Auto) 10.8 % Eosinophils (%) (Auto) 2.6 % Basophils (%) (Auto) 0.5 % Neutrophils # (Auto) 7.2 TH/MM3 Lymphocytes # (Auto) 2.1 TH/MM3 Monocytes # (Auto) 1.2 TH/MM3 Eosinophils # (Auto) 0.3 TH/MM3 Basophils # (Auto) 0.1 TH/MM3 CBC Comment DIFF FINAL Differential Comment Erythrocyte Sedimentation Rate GREATER THAN 140 mm/hr Blood Urea Nitrogen 50 MG/DL Creatinine 2.59 MG/DL Random Glucose 140 MG/DL Calcium Level 9.5 MG/DL Sodium Level 131 MEQ/L Potassium Level 5.1 MEQ/L Chloride Level 96 MEQ/L Carbon Dioxide Level 28.2 MEQ/L Anion Gap 7 MEQ/L Estimat Glomerular Filtration Rate 26 ML/MIN C-Reactive Protein 11.00 MG/DL [facility] Medical Decision Making Medical Screen Exam Complete: Yes Emergency Medical Condition: Yes Differential Diagnosis Left foot osteomyelitis, cellulitis, erysipelas Narrative Course 57-year-old male presents emergency department at the request of his blade sharpener for evaluation of his left foot with probable osteomyelitis. Patient does have a history of osteomyelitis in the right. Patient says his diabetes is well- controlled with blood sugars in the low 100s-160s. Patient does not know his current A1c although says his last A1c was 8.6 "a while ago". He was told to come to the emergency department today because his blade sharpener is in the hospital tomorrow and would like to debride the foot tomorrow morning. Vital signs are stable, blood pressure initially low however, increased to normal. According to the prescription that patient brought in from Dr. Barrios's office , it states "admit to medicine, x-ray left foot, MRI left foot with and without contrast. Consult podiatry, consult infectious disease. Re: osteomyelitis left foot." I discussed his case with my attending, Dr. Wilson who stated that because the likelihood is rather high for him to have osteomyelitis, opted to go straight for an MRI of the foot as this would provide a more definitive diagnosis. Labs and imaging studies ordered. MRI pending as of admission. Labs significant for ESR greater than 140, chronic anemia, BUN/Cr 50/2.59 decreased from 27/1.65. Will hold abx therapy at the request of his blade sharpener, per patient. Pt appears to be a reliable historian and knowledgeable on his condition. In addition, I do not see an acute bacteremia or acute reason to start abx. I spoke with Dr. del rio and he will take this admission. Attending Dr. Razo. Recommend consult with Dr. Barrios. Consult with infectious disease as well per podiatry's recommendation. Diagnosis Primary Impression: Osteomyelitis Qualified Codes: M86.172 - Other acute osteomyelitis, left ankle and foot Admitting Information Admitting Physician Requests: Admit Scripts Morphine ER (Morphine ER) 30 Mg Tab 30 MG PO BID for Pain Management, #90 TAB 0 Refills Prov: Malathi Charles MD, R1 01/01/18 Condition: Stable Michell Aguilar Jan 01, 2018 12:44
[2018-01-01] MEDS ORDERED: LACT1CAP18 PO (12:57)
[2018-01-01] MEDS ORDERED: [UNRECOGNIZED DRUG - CODE] PO (12:57)
[2018-01-01] MEDS ORDERED: GABA100C4 PO (12:57)
[2018-01-01] MEDS ORDERED: VITA150T PO (12:57)
[2018-01-01] MEDS ORDERED: DORZ2SOL EACH EYE (12:57)
[2018-01-01] MEDS ORDERED: VITA2000 PO (12:57)
[2018-01-01 13:04] VITALS: BP 122/63; PULSE 69; RESP 18; O2SAT 100
[2018-01-01 13:31] LABS: AUTOMATED NEUTROPHIL # 7.2 TH/MM3 (1.8-7.7); BASOPHIL # 0.1 TH/MM3 (0-0.2); BASOPHIL % 0.5 % (0.0-2.0); EOSINOPHIL # 0.3 TH/MM3 (0-0.4); EOSINOPHIL % 2.6 % (0.0-4.0); HEMATOCRIT 31.5 % (39.0-51.0); HEMOGLOBIN 10.6 GM/DL (13.0-17.0); LYMPH % 19.3 % (9.0-44.0); LYMPHOCYTE # 2.1 TH/MM3 (1.0-4.8); MEAN CELL VOLUME 82.9 FL (80.0-100.0); MEAN CORPUSCULAR HEMOGLOBIN 27.8 PG (27.0-34.0); MEAN CORPUSCULAR HGB CONC 33.6 % (32.0-36.0); MEAN PLATELET VOLUME 7.9 FL (7.0-11.0); MONO % 10.8 % (0.0-8.0); MONOCYTE # 1.2 TH/MM3 (0-0.9); NEUT % 66.8 % (16.0-70.0); PLATELET COUNT 259 TH/MM3 (150-450); RED CELL DISTRIBUTION WIDTH 15.2 % (11.6-17.2); WHITE BLOOD COUNT 10.7 TH/MM3 (4.0-11.0)
[2018-01-01 13:57] LABS: CALCIUM 9.5 MG/DL (8.5-10.1); CREATININE 2.59 MG/DL (0.60-1.30)
[2018-01-01 13:58] LABS: BICARBONATE 28.2 MEQ/L (21.0-32.0)
--- NOTE | 2018-01-01 14:51 | HHI.HP ---
[facility] Service Family Medicine Primary Care Physician Gale Hdez MD Admission Diagnosis Osteomyelitis left foot Diagnoses: International Travel<30 Days: No Contact w/Intl Traveler<30days: No Known Affected Area: No History of Present Illness Patient is 57-year-old Male with PMHx of DM, neuropathy, and HTN presents to the ED on request of his char filter operator helper Dr. Hawkins due to concern for bone infection via Left foot wound. Patient was seen by Dr. Hawkins on Tuesday and she had concern for osteomyelitis. Patient reported Dr. Hawkins called him and asked him to come into ED for preparation of Left foot wound surgical evaluation. He has been seeing Dr. Hawkins this past year about every two weeks due to chronic foot ulcers. Right foot wound has healed but he developed left foot wound on the side of the small toe about 4 wks ago. Patient states he has no pain on Left foot. Of note patient had "Right ankle collapse" recently which has resulted in Right LE and ankle pain. Denies fever or chills. Review of Systems Constitutional: COMPLAINS OF: Weight loss (intentional), Chills (chronic), DENIES: Fever, Dizziness Eyes: DENIES: Blurred vision, Vision loss Ears, nose, mouth, throat: COMPLAINS OF: Nasal discharge, Running Nose, DENIES : Throat pain Respiratory: DENIES: Cough, Shortness of breath Cardiovascular: COMPLAINS OF: Lower Extremity Edema, DENIES: Chest pain, Palpitations Gastrointestinal: DENIES: Abdominal pain, Diarrhea, Nausea, Vomiting Musculoskeletal: COMPLAINS OF: Joint pain Integumentary: DENIES: Rash Hematologic/lymphatic: DENIES: Bruising Neurologic: COMPLAINS OF: Paresthesias, DENIES: Headache Psychiatric: DENIES: Confusion Past Family Social History Past Medical History glaucoma and cataracts DM neuropathy HTN Patient born with one kidney Past Surgical History 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 right rotator cuff repair, 2011 hernia repair, Right side, 1994 Right big toe partial amputation, jul 2017 skin cancer removal, across left chest Allergies: Coded Allergies: No Known Allergies (Verified , 08/01/17) Family History Medical problems that run in the family: gastrointestinal issues arthritis iron deficiency Social History Lives with and daughter (12 yo) smoking- cigars 2-3/day, 40 years alcohol- rarely illicit drug use- denies Physical Exam Vital Signs Vital Signs Date Time Temp Pulse Resp B/P (MAP) Pulse Ox O2 Delivery O2 Flow Rate FiO2 01/01/18 13:04 69 18 122/63 (82) 100 Room Air 01/01/18 11:52 98.2 79 18 96/54 (68) Physical Exam GENERAL: This is a well-nourished, well-developed patient, sitting in bed in no apparent distress. SKIN: No rashes, or ecchymoses. Cool and dry. HEAD: Atraumatic. Normocephalic. EYES: Pupils equal round and reactive. Extraocular motions intact. No scleral icterus. No injection or drainage. ENT: Nose without bleeding, purulent drainage or septal hematoma. Throat without erythema, tonsillar hypertrophy or exudate. Uvula midline. Airway patent. NECK: Trachea midline. No JVD or lymphadenopathy. Supple, nontender, no meningeal signs. CARDIOVASCULAR: Regular rate and rhythm without murmurs, gallops, or rubs. RESPIRATORY: Clear to auscultation. Breath sounds equal bilaterally. No wheezes , rales, or rhonchi. GASTROINTESTINAL: Abdomen soft, non-tender, nondistended. No hepato-splenomegaly , or palpable masses. No guarding. MUSCULOSKELETAL: Extremities without clubbing or cyanosis. Edema noted around Right ankle. Joint tenderness to palpation on Right ankle. Calf tenderness on R LE, present since injuring Right ankle. NEUROLOGICAL: Awake and alert. Cranial nerves II through XII intact. Pt with neuropathy, no sensation on plantar aspect of feet BL. 3/5 strength on LE. 5/5 on Upper extremities. Normal speech. Laboratory Laboratory Tests Test 01/01/18 13:01 White Blood Count 10.7 Red Blood Count 3.80 Hemoglobin 10.6 Hematocrit 31.5 Mean Corpuscular Volume 82.9 Mean Corpuscular Hemoglobin 27.8 Mean Corpuscular Hemoglobin Concent 33.6 Red Cell Distribution Width 15.2 Platelet Count 259 Mean Platelet Volume 7.9 Neutrophils (%) (Auto) 66.8 Lymphocytes (%) (Auto) 19.3 Monocytes (%) (Auto) 10.8 Eosinophils (%) (Auto) 2.6 Basophils (%) (Auto) 0.5 Neutrophils # (Auto) 7.2 Lymphocytes # (Auto) 2.1 Monocytes # (Auto) 1.2 Eosinophils # (Auto) 0.3 Basophils # (Auto) 0.1 CBC Comment DIFF FINAL Differential Comment Erythrocyte Sedimentation Rate GREATER THAN 140 Blood Urea Nitrogen 50 Creatinine 2.59 Random Glucose 140 Calcium Level 9.5 Sodium Level 131 Potassium Level 5.1 Chloride Level 96 Carbon Dioxide Level 28.2 Anion Gap 7 Estimat Glomerular Filtration Rate 26 C-Reactive Protein 11.00 Date/Time Source Procedure Growth Status 01/01/18 13:01 Wound Foot Gram Stain Pending Received 01/01/18 13:01 Wound Foot Wound Culture Pending Received Result Diagram: 01/01/18 1301 01/01/18 1301 Imaging Last Impressions Foot MRI 01/01/18 0000 Signed Impressions: Service Date/Time: Monday, January 01, 2018 14:20 - CONCLUSION: Osteomyelitis, cellulitis and subcutaneous abscess seen at the level of the fifth digit. MD Alexandre Guevara VTE Risk Assessment Alexandre VTE Risk Assessment: Mod/High Risk (score >= 2) VTE Pharm Contraindication: patient scheduled for surgery tomorrow Alexandre Risk Assessment Model Point Value = 1 Point Value = 2 Point Value = 3 Point Value = 5 Age 41-60 Minor surgery BMI > 25 kg/m2 Swollen legs Varicose veins or History of unexplained or recurrent spontaneous Oral contraceptives or hormone replacement Sepsis (< 1 month) Serious lung disease, including pneumonia (< 1 month) Abnormal pulmonary function Acute myocardial infarction Congestive heart failure (< 1 month) History of inflammatory bowel disease Medical patient at bed rest Age 61-74 Arthroscopic surgery Major open surgery (> 45 min) Laparoscopic surgery (> 45 min) Malignancy Confined to bed (> 72 hours) Immobilizing plaster cast Central venous access Age >= 75 History of VTE Family history of VTE Factor V Leiden Prothrombin [id number] Lupus anticoagulant Anticardiolipin antibodies Elevated serum homocysteine Heparin-induced thrombocytopenia Other congenital or acquired thrombophilia Stroke (< 1 month) Elective arthroplasty Hip, pelvis, or leg fracture Acute spinal cord injury (< 1 month) Prophylaxis Regimen Total Risk Factor Score Risk Level Prophylaxis Regimen 0-1 Low Early ambulation 2 Moderate Order ONE of the following: *Sequential Compression Device (SCD) *Heparin 5000 units SQ BID 3-4 Higher Order ONE of the following medications: *Heparin 5000 units SQ TID *Enoxaparin/Lovenox 40 mg SQ daily (WT < 150 kg, CrCl > 30 mL/min) *Enoxaparin/Lovenox 30 mg SQ daily (WT < 150 kg, CrCl > 10-29 mL/min) *Enoxaparin/Lovenox 30 mg SQ BID (WT < 150 kg, CrCl > 30 mL/min) AND/OR *Sequential Compression Device (SCD) 5 or more Highest Order ONE of the following medications: *Heparin 5000 units SQ TID (Preferred with Epidurals) *Enoxaparin/Lovenox 40 mg SQ daily (WT < 150 kg, CrCl > 30 mL/min) *Enoxaparin/Lovenox 30 mg SQ daily (WT < 150 kg, CrCl > 10-29 mL/min) *Enoxaparin/Lovenox 30 mg SQ BID (WT < 150 kg, CrCl > 30 mL/min) AND *Sequential Compression Device (SCD) Assessment and Plan Assessment and Plan Patient is 57-year-old Male with PMHx of DM, neuropathy, and HTN presents to the ED on request of his char filter operator helper Dr. Hawkins due to concern for osteomyelitis via chronic Left foot wound. Patient is stable, afebrile, no leukocytosis, elevated ESR and CRP. Patient admitted for treatment of osteomyelitis. Code Status Full code Discussed Condition With SDW Dr. Thorne WDW Dr. Razo Problem List: (1) Osteomyelitis ICD Codes: M86.9 - Osteomyelitis, unspecified Status: Acute Plan: Patient with h/o of chronic left foot wound since 4 wks ago. Patient has been following with Dr. Hawkins and was advised to come to ED due to concerns of osteomyelitis Patient with h/o neuropathy, currently denies any pain on Left foot. No leukocytosis, Afebrile. ESR >140, CRP Patient is stable, will hold off antibiotics for now Left foot MRI: Osteomyelitis, cellulitis and subcutaneous abscess seen at the level of the fifth digit. -Podiatry consulted, appreciated recommendations Plan for OR tomorrow with Dr. Hawkins NPO after midnight -ID consulted, appreciate recommendations -f/u am labs,wound cx (2) Diabetes mellitus ICD Codes: E11.9 - Type 2 diabetes mellitus without complications Status: Chronic Plan: On admission BG 140 home diabetic medication held low dose sliding scale Bedside glucose checks (3) HTN (hypertension) ICD Codes: I10 - Essential (primary) hypertension Status: Chronic Plan: Blood pressure within normal limits, 122/63 -Blood pressure medications held due to initial blood pressure of 96/54. Resume hypertension medication depending on repeat blood pressure readings. Continue to monitor (4) Chronic kidney disease ICD Codes: N18.9 - Chronic kidney disease, unspecified Status: Chronic Plan: On admission Creatinine of 2.59, baseline 1.5-2 Continue to monitor Avoid nephrotoxic agents (5) Neuropathy ICD Codes: G62.9 - Polyneuropathy, unspecified Status: Chronic Plan: Continue with gabapentin 200 by mouth twice a day (6) Nutrition, metabolism, and development symptoms ICD Codes: R63.8 - Other symptoms and signs concerning food and fluid intake Plan: Fluids: 100 mls/hr Electrolytes: Slightly low sodium, will continue to monitor, replete as needed. Nutrition: Npo after midnight DVT ppx: SCDs Physician Certification 2 Midnight Certification Type: Admission for Inpatient Services Order for Inpatient Services The services are ordered in accordance with Medicare regulations or non- Medicare payer requirements, as applicable. In the case of services not specified as inpatient-only, they are appropriately provided as inpatient services in accordance with the 2-midnight benchmark. Estimated LOS (days): 5 days is the estimated time the patient will need to remain in the hospital, assuming treatment plan goals are met and no additional complications. Post-Hospital Plan: Not yet determined Problem Qualifiers (1) Osteomyelitis: Qualified Codes: M86.172 - Other acute osteomyelitis, left ankle and foot Malathi Charles MD, R1 Jan 01, 2018 14:51
[2018-01-01] MEDS ORDERED: NALOXONE HCL 0.4 MG/ML AMP IV PUSH PRN (15:00)
[2018-01-01] MEDS ORDERED: LACTULOSE SYRUP 20 GM/30 ML CUP PO PRN (15:00)
[2018-01-01] MEDS ORDERED: ONDANSETRON HCL 4 MG/2 ML VIAL IVP PRN (15:00)
[2018-01-01] MEDS ORDERED: SODIUM CHLORIDE 0.9% FLUSH 10 ML FLUSH IV FLUSH PRN (15:00)
[2018-01-01] MEDS ORDERED: MAGNESIUM HYDROXIDE SUSP 30 ML CUP PO PRN (15:00)
[2018-01-01] MEDS ORDERED: BISACODYL 10 MG SUPP RECTAL PRN (15:00)
[2018-01-01] MEDS ORDERED: SENNOSIDES 8.6 MG TAB PO PRN (15:00)
[2018-01-01] MEDS ORDERED: GLUCAGON 1 MG/ML VIAL OTHER PRN (15:15)
[2018-01-01] MEDS ORDERED: DEXTROSE 50% IN WATER 50 ML VIAL(D50) IV PUSH PRN (15:15)
--- NOTE | 2018-01-01 15:15 | RADRPT ---
EXAM DATE/TIME: 01/01/2018 14:20 [facility] COMPARISON: FOOT RIGHT COMPLETE ([id number]), August 04, 2017, 19:20. INDICATIONS : Osteomyelitis. MEDICAL HISTORY : Diabetes mellitus type 2. SURGICAL HISTORY : Nephrectomy, right. Umbilical hernia repair. Rotator cuff, right. Right great toe amputation. ENCOUNTER: Initial ACUITY: 1 day PAIN SCORE: LOCATION: Left foot TECHNIQUE: Multiplanar, multisequence MRI examination was performed without contrast. FINDINGS: The patient is status post amputation of the first distal phalanx. There is abnormal increased T2 sig nal present within the fifth metatarsal, proximal mid and distal phalanx with surrounding subcutaneou s edema and soft tissue swelling. The remaining digits are unremarkable there is a small amount of ed greg within the medial cuneiform with no surrounding inflammatory changes. There is a rim-enhancing fl uid collection anterior to the fifth digit concerning for abscess measuring 1 cm in transverse dimens ion, 1 cm in AP dimension and 3.2 cm in longitudinal dimension. CONCLUSION: Osteomyelitis, cellulitis and subcutaneous abscess seen at the level of the fifth digit. Juan Arredondo MD on January 01, 2018 at 15:10 Board Certified Radiologist. This report was verified electronically.
[2018-01-01] MEDS ORDERED: MORP1TAB25 PO (15:19)
[2018-01-01 16:20] VITALS: BP 165/77; PULSE 72; RESP 18; TEMP 97.1; O2SAT 100
[2018-01-01] MEDS: INSULIN ASPART SUPPLEMENTAL SCALE SQ SCH ×2 (17:00→20:59)
[2018-01-01] MEDS: SODIUM CHLOR 0.9% 1000 ML INJ 1,000 ML IV SCH (17:23)
[2018-01-01] MEDS ORDERED: INSULIN ASPART 1,000 UNITS/10 ML VIAL SQ ONE (18:45)
[2018-01-01] MEDS: DOCUSATE SODIUM 50 MG/SENNA 8.6 MG TAB PO SCH (19:21)
[2018-01-01] MEDS: GABAPENTIN 100 MG CAP PO SCH (19:21)
[2018-01-01] MEDS: MORPHINE SULFATE 30 MG CONTROLLED RELEASE TAB PO SCH (19:21)
[2018-01-01] MEDS: SODIUM CHLORIDE 0.9% FLUSH 10 ML FLUSH IV FLUSH SCH (19:22)
[2018-01-01] MEDS: DORZOLAMIDE 2% OPTH SOLN 200 DROP/10 ML BTLO EACH EYE SCH (19:22)
[2018-01-01] MEDS: LATANOPROST 0.005% OPHT SOLN 2.5 ML BTL EACH EYE SCH (19:22)
[2018-01-01] MEDS ORDERED: cloNIDine HCL 0.1 MG TAB PO PRN (19:30)
[2018-01-01 20:00] VITALS: BP 148/70; PULSE 82; RESP 21; TEMP 98.4; O2SAT 100
[2018-01-01] MEDS ORDERED: INULIN 2 GM PO SCH (21:00)
[2018-01-01] MEDS ORDERED: CALCIUM CARBONATE 500 MG CHEWABLE TAB CHEW ONE (23:45)
[2018-01-02] VITALS: BP 137/67; PULSE 92; RESP 20; TEMP 98.5; O2SAT 94
[2018-01-02 00:15] VITALS: O2SAT 93
[2018-01-02] MEDS ORDERED: LACTATED RINGER'S 1000 ML IV PRN (00:45)
[2018-01-02] MEDS: SODIUM CHLOR 0.9% 1000 ML INJ 1,000 ML IV SCH ×3 (02:52→20:59)
[2018-01-02 04:57] LABS: AUTOMATED NEUTROPHIL # 5.1 TH/MM3 (1.8-7.7); BASOPHIL # 0.1 TH/MM3 (0-0.2); BASOPHIL % 0.6 % (0.0-2.0); EOSINOPHIL # 0.3 TH/MM3 (0-0.4); EOSINOPHIL % 3.3 % (0.0-4.0); HEMATOCRIT 29.9 % (39.0-51.0); HEMOGLOBIN 10.3 GM/DL (13.0-17.0); LYMPH % 28.7 % (9.0-44.0); LYMPHOCYTE # 2.5 TH/MM3 (1.0-4.8); MEAN CELL VOLUME 82.1 FL (80.0-100.0); MEAN CORPUSCULAR HEMOGLOBIN 28.2 PG (27.0-34.0); MEAN CORPUSCULAR HGB CONC 34.4 % (32.0-36.0); MEAN PLATELET VOLUME 7.5 FL (7.0-11.0); MONO % 10.1 % (0.0-8.0); MONOCYTE # 0.9 TH/MM3 (0-0.9); NEUT % 57.3 % (16.0-70.0); PLATELET COUNT 248 TH/MM3 (150-450); RED BLOOD COUNT 3.64 MIL/MM3 (4.50-5.90); RED CELL DISTRIBUTION WIDTH 15.1 % (11.6-17.2); WHITE BLOOD COUNT 8.9 TH/MM3 (4.0-11.0)
[2018-01-02 05:24] LABS: ALBUMIN 2.8 GM/DL (3.4-5.0); AST (GOT) 12 U/L (15-37); BLOOD UREA NITROGEN 47 MG/DL (7-18); CALCIUM 9.1 MG/DL (8.5-10.1); CHLORIDE 100 MEQ/L (98-107); GLOMERULAR FILTRATION RATE 27 ML/MIN (>89); GLUCOSE,RANDOM 88 MG/DL (74-106); SODIUM (NA) 135 MEQ/L (136-145)
[2018-01-02 05:25] LABS: ALT (GPT) 14 U/L (12-78)
[2018-01-02 05:28] LABS: ALKALINE PHOSPHATASE 81 U/L (45-117); TOTAL BILIRUBIN ADULT 0.4 MG/DL (0.2-1.0); TOTAL PROTEIN 7.8 GM/DL (6.4-8.2)
[2018-01-02 08:00] VITALS: BP 131/67; PULSE 70; RESP 18; TEMP 98; O2SAT 97
[2018-01-02] MEDS: INSULIN ASPART SUPPLEMENTAL SCALE SQ SCH ×4 (08:00→21:47)
[2018-01-02] MEDS: SODIUM CHLORIDE 0.9% FLUSH 10 ML FLUSH IV FLUSH SCH ×2 (09:00→21:43)
[2018-01-02] MEDS ORDERED: MORPHINE SULFATE 30 MG CONTROLLED RELEASE TAB PO SCH (09:00)
[2018-01-02] MEDS: DORZOLAMIDE 2% OPTH SOLN 200 DROP/10 ML BTLO EACH EYE SCH ×2 (09:03→21:43)
[2018-01-02] MEDS: LACTOBACILLUS ACIDOPHILUS TAB PO SCH (09:03)
[2018-01-02] MEDS: DOCUSATE SODIUM 50 MG/SENNA 8.6 MG TAB PO SCH ×2 (09:03→21:42)
[2018-01-02] MEDS: MORPHINE SULFATE 30 MG CONTROLLED RELEASE TAB PO SCH ×2 (09:05→21:42)
[2018-01-02] MEDS: GABAPENTIN 100 MG CAP PO SCH ×2 (09:05→21:43)
--- NOTE | 2018-01-02 11:42 | HHI.FPPN ---
Subjective Remarks Patient seen and examined at bedside. No acute events overnight. Patient denies any pain. Plan to go to OR today for Left foot osteomyelitis. (Malathi Charles MD, R1) Objective Vitals Vital Signs Date Time Temp Pulse Resp B/P (MAP) Pulse Ox O2 Delivery O2 Flow Rate FiO2 01/02/18 00:15 93 01/02/18 00:00 98.5 92 20 137/67 (90) 94 01/01/18 20:21 18 01/01/18 20:00 98.4 82 21 148/70 (96) 100 01/01/18 16:20 97.1 72 18 165/77 (106) 100 01/01/18 16:08 01/01/18 13:04 69 18 122/63 (82) 100 Room Air 01/01/18 11:52 98.2 79 18 96/54 (68) I/O 01/01/18 01/01/18 01/01/18 01/02/18 01/02/18 01/02/18 07:00 15:00 23:00 07:00 15:00 23:00 Intake Total 360 ml 1000 ml Output Total 400 ml Balance -40 ml 1000 ml Intake Oral 360 ml 0 ml IV Total 1000 ml Output Urine Total 400 ml # Voids 1 0 # Bowel Movements 0 (Malathi Charles MD, R1) Result Diagram: 01/02/18 0425 01/02/18 0425 Imaging Last Impressions Foot MRI 01/01/18 0000 Signed Impressions: Service Date/Time: Monday, January 01, 2018 14:20 - CONCLUSION: Osteomyelitis, cellulitis and subcutaneous abscess seen at the level of the fifth digit. Juan Arredondo MD Objective Remarks GENERAL: This is a well-nourished, well-developed patient, sitting in bed in no apparent distress. SKIN: No rashes, or ecchymoses. Cool and dry. HEAD: Atraumatic. Normocephalic. EYES: Pupils equal round and reactive. Extraocular motions intact. No scleral icterus. No injection or drainage. ENT: Nose without bleeding, purulent drainage or septal hematoma. NECK: Trachea midline. No JVD or lymphadenopathy. Supple, nontender, no meningeal signs. CARDIOVASCULAR: Regular rate and rhythm without murmurs, gallops, or rubs. RESPIRATORY: Clear to auscultation. Breath sounds equal bilaterally. No wheezes , rales, or rhonchi. GASTROINTESTINAL: Abdomen soft, non-tender, nondistended. No hepato-splenomegaly , or palpable masses. No guarding. MUSCULOSKELETAL: Extremities without clubbing or cyanosis. Edema noted around Right ankle. Joint tenderness to palpation on Right ankle. Calf tenderness on R LE, present since injuring Right ankle. Left foot wound examined yesterday [id number], localized erythema, non-painful to palpation. Wound coverage with bandage today, with mild draining of clear yellow liquid. NEUROLOGICAL: Awake and alert. Pt with neuropathy, no sensation on plantar aspect of feet BL. 3/5 strength on LE. 5/5 on Upper extremities. Normal speech. (Malathi Charles MD, R1) A/P Assessment and Plan Patient is 57-year-old Male with PMHx of DM, neuropathy, and HTN presents to the ED on request of his pocket stitcher Dr. Barrios due to concern for osteomyelitis via chronic Left foot wound. Patient is stable, afebrile, no leukocytosis, elevated ESR and CRP. MRI positive for osteomyelitis. Plan for OR today. (Malathi Charles MD, R1) Attending Attestation Patient was seen, examined and discussed with the entire medicine team this morning. He is complaining about some except ordering his breakfast. 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 Also has right Charcot foot. Follows up regularly with his pocket stitcher. He is scheduled for surgery later today and will be placed nothing by mouth after he has his breakfast. Physical exam is as noted above. Patient seen and examined. Case reviewed and discussed with the resident team. Agree with plan of care as discussed with me and documented in the resident note. (Kyra Razo MD) Problem List: (1) Osteomyelitis ICD Codes: M86.9 - Osteomyelitis, unspecified Status: Acute Plan: Patient with h/o of chronic left foot wound since 4 wks ago. Patient has been following with Dr. Barrios and was advised to come to ED due to concerns of osteomyelitis Patient with h/o neuropathy, currently denies any pain on Left foot. On admission ESR >140, CRP 11 No leukocytosis, Afebrile. Patient is stable, will hold off antibiotics for now Left foot MRI: Osteomyelitis, cellulitis and subcutaneous abscess seen at the level of the fifth digit. -Podiatry consulted, appreciated recommendations Plan for OR today with Dr. Barrios Pt NPO after breakfast -ID consulted, appreciate recommendations -f/u am labs,wound cx (2) Diabetes mellitus ICD Codes: E11.9 - Type 2 diabetes mellitus without complications Status: Chronic Plan: On admission BG 140 BG of 96 this morning home diabetic medication held low dose sliding scale Bedside glucose checks (3) HTN (hypertension) ICD Codes: I10 - Essential (primary) hypertension Status: Chronic Plan: Blood pressure within normal limits, 137/67 -Blood pressure medications held due to initial blood pressure of 96/54. Resume hypertension medication depending on repeat blood pressure readings. Continue to monitor (4) Chronic kidney disease ICD Codes: N18.9 - Chronic kidney disease, unspecified Status: Chronic Plan: On admission Creatinine of 2.59, baseline 1.5-2 Cr downtrending Continue to monitor Avoid nephrotoxic agents (5) Neuropathy ICD Codes: G62.9 - Polyneuropathy, unspecified Status: Chronic Plan: Continue with gabapentin 200 by mouth twice a day (6) Nutrition, metabolism, and development symptoms ICD Codes: R63.8 - Other symptoms and signs concerning food and fluid intake Plan: Fluids: 100 mls/hr Electrolytes: Slightly low sodium, will continue to monitor, replete as needed. Nutrition: Npo since breakfast, pending surgery DVT ppx: SCDs (Malathi Charles MD, R1) Problem Qualifiers (1) Osteomyelitis: Qualified Codes: M86.172 - Other acute osteomyelitis, left ankle and foot Malathi Charles MD, R1 Jan 02, 2018 11:42 Kyra Razo MD Jan 02, 2018 12:26
[2018-01-02 12:00] VITALS: BP_SYST 140; BP_SYST 144; BP_DIAS 69; PULSE 78; RESP 18; TEMP 98; O2SAT 98
[2018-01-02] MEDS ORDERED: KETOROLAC TROMETHAMINE 30 MG/ML (IVP) VIAL IV PUSH ONE (12:00)
[2018-01-02] MEDS ORDERED: DEXAMETHASONE SOD PHOS 4 MG/ML VIAL IV ONE (12:00)
[2018-01-02] MEDS ORDERED: LACTATED RINGER'S 1000 ML INJ 1,000 ML IV ONE (12:00)
[2018-01-02] MEDS ORDERED: PROPOFOL 200 MG/20 ML AMP IV ONE (12:00)
[2018-01-02] MEDS ORDERED: SODIUM CHLORIDE 0.9% 20 ML VIAL IV ONE (12:00)
--- NOTE | 2018-01-02 13:23 | PD.ID.CON ---
History of Present Illness Service ID Consult Requested By Reason for Consult Evaluation and mment of left foot 5th MTP osteomyelitis. Primary Care Physician Gale Hdez MD Diagnoses: History of Present Illness is a 57 y/o CM with PMHx of DM with neuropathy, single kidney (? atrophy at removed at 11 yrs age by history), Chronic kidney disease ( never seen a orchestra director) and HTN. 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 Patient was seen by Dr. Hawkins on Tuesday and she had concern for osteomyelitis. Patient reported Dr. Hawkins called him and asked him to come into ED for preparation of Left foot wound surgical evaluation. He has been seeing Dr. Hawkins this past year about every two weeks due to chronic foot ulcers. He reports it was a callus that has never healed. Right foot wound has healed but he developed left foot wound on the side of the 5th toe about 4 wks ago. Patient states he has no pain on Left foot. Patient had an MRI foot which is cw with Osteomyelitis. Podiatry is following patients. There were cultures collected in the outpatient setting per which are not finalized yet. Prelim wound cultures superficial at [facility] Pseudomonas species susceptibility pending. Denies fever. Reports chills and night sweats for last few weeks off and on. Reports this status as a callus. ID consulted for evaluation and M'ment of Left foot cellultis and left foot 5th digit abscess/cellulitis and osteomyelitis. Review of Systems ROS Limitations: Poor Historian Constitutional: DENIES: Diaphoretic episodes, Fatigue, Fever, Weight gain, Weight loss, Chills, Dizziness, Change in appetite, Night Sweats Endocrine: DENIES: Heat/cold intolerance, Polydipsia, Polyuria, Polyphagia Eyes: DENIES: Blurred vision, Diplopia, Eye inflammation, Eye pain, Vision loss , Photosensitivity, Double Vision Ears, nose, mouth, throat: DENIES: Tinnitus, Hearing loss, Vertigo, Nasal discharge, Oral lesions, Throat pain, Hoarseness, Ear Pain, Running Nose, Epistaxis, Sinus Pain, Toothache, Odynophagia Respiratory: DENIES: Apneas, Cough, Snoring, Wheezing, Hemoptysis, Sputum production, Shortness of breath Cardiovascular: DENIES: Chest pain, Palpitations, Syncope, Dyspnea on Exertion , PND, Lower Extremity Edema, Orthopnea, Claudication Gastrointestinal: DENIES: Abdominal pain, Black stools, Bloody stools, Constipation, Diarrhea, Nausea, Vomiting, Difficulty Swallowing, Anorexia Genitourinary: DENIES: Sexual dysfunction, Urinary frequency, Urinary incontinence, Urgency, Hematuria, Dysuria, Nocturia, Penile Discharge, Testicular Pain, Testicular Swelling Musculoskeletal: COMPLAINS OF: Joint pain, Joint Swelling, DENIES: Muscle aches , Stiffness, Back pain, Neck pain Integumentary: COMPLAINS OF: Abnormal pigmentation, DENIES: Nail changes, Pruritus, Rash Hematologic/lymphatic: DENIES: Bruising, Lymphadenopathy Immunologic/allergic: DENIES: Eczema, Urticaria Neurologic: DENIES: Abnormal gait, Headache, Localized weakness, Paresthesias, Seizures, Speech Problems, Tremor, Poor Balance Psychiatric: DENIES: Anxiety, Confusion, Mood changes, Depression, Hallucinations, Agitation, Suicidal Ideation, Homicidal Ideation, Delusions Except as stated in HPI: all other systems reviewed are Neg Past Family Social History Allergies: Coded Allergies: No Known Allergies (Verified , 08/01/17) Past Medical History glaucoma and cataracts DM neuropathy HTN 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 right rotator cuff repair, 2011 hernia repair, Right side, 1994 Right big toe partial amputation, jul 2017 skin cancer removal, across left chest Reported Medications Reported Meds & Active Scripts Active Morphine ER (Morphine Sulfate) 30 Mg Tab 30 Mg PO BID Reported Super B Complex (Vitamin B Complex Vit C No.4) 150 Mg Tablet 1 Tab PO DAILY Vitamin D3 (Cholecalciferol) 2,000 Unit Cap 2,000 Units PO DAILY Gabapentin 100 Mg Cap 200 Mg PO BID Probiotic (Lactobacillus Combo No.10) 20 Billion Cell Capsule 1 Cap PO DAILY Dorzolamide Opth Drops (Dorzolamide HCl) 2% Soln 1 Drop EACH EYE BID English Cod Liver Oil (Cod Liver Oil) 1 Cap 415 Mg PO DAILY Latanoprost Opth Drops (Latanoprost) 0.005% Drops 1 Drop EACH EYE HS Refrigerate until opened. Lisinopril 40 Mg Tab 40 Mg PO DAILY Fiber Gummies (Inulin) 2 Gram Tab.chew 2 Gm PO BID Tresiba Flextouch Pen Inj (Insulin Degludec Inj) 300 unit/3 ML Pen 56 Units SQ HS Novolog Flexpen Inj (Insulin Aspart) 300 Unit/3 Ml Pen 15 Units SQ TIDAC Hydrochlorothiazide 25 Mg Tab 25 Mg PO DAILY Glimepiride 1 Mg Tab 1 Mg PO DAILY Take with breakfast or first main meal Active Ordered Medications Current Medications Medications (Trade) Dose Ordered Sig/Teo Route Start Time Stop Time Status Last Admin Sodium Chloride 1,000 ml @ 100 mls/hr Q10H IV 01/01/18 14:59 01/02/18 16:19 (NS Flush) 2 ml UNSCH PRN IV FLUSH 01/01/18 15:00 (NS Flush) 2 ml BID IV FLUSH 01/01/18 21:00 (Zofran Inj) 4 mg Q6H PRN IVP 01/01/18 15:00 (Narcan Inj) 0.4 mg UNSCH PRN IV PUSH 01/01/18 15:00 (Rhonda-Colace) 1 tab BID PO 01/01/18 21:00 01/02/18 09:03 (Milk Of Magnesia Liq) 30 ml Q12H PRN PO 01/01/18 15:00 (Senokot) 17.2 mg Q12H PRN PO 01/01/18 15:00 (Dulcolax Supp) 10 mg DAILY PRN RECTAL 01/01/18 15:00 (Lactulose Liq) 30 ml DAILY PRN PO 01/01/18 15:00 (D50w (Vial) Inj) 50 ml UNSCH PRN IV PUSH 01/01/18 15:15 (Glucagon Inj) 1 mg UNSCH PRN OTHER 01/01/18 15:15 (NovoLOG SUPPLEMENTAL SCALE) 1 ACHS SLIDING SCALE SQ 01/01/18 17:00 01/02/18 11:55 (Trusopt 2% Opth Soln) 1 drop BID EACH EYE 01/01/18 21:00 01/02/18 09:03 (Neurontin) 200 mg BID PO 01/01/18 21:00 01/02/18 09:05 (Xalatan 0.005% Opth Soln) 1 drop HS EACH EYE 01/01/18 21:00 (Lactinex) 1 tab DAILY PO 01/02/18 09:00 01/02/18 09:03 (Oramorph Sr) 30 mg Q12HR PO 01/01/18 21:00 01/02/18 09:05 (Catapres) 0.1 mg Q6H PRN PO 01/01/18 19:30 Lactated Ringer's 1,000 ml @ 30 mls/hr Q24H PRN IV 01/02/18 00:45 01/05/18 00:44 (Levemir Inj) 28 units HS SQ 01/02/18 21:00 Family History NC to current ID problems. Social History Lives with and daughter (12 yo) smoking- cigars 2-3/day, 40 years alcohol- rarely. Binge drinks when camping 2-3 times per year. illicit drug use- denies Lives in [place]. Physical Exam Vital Signs Vital Signs Date Time Temp Pulse Resp B/P (MAP) Pulse Ox O2 Delivery O2 Flow Rate FiO2 01/02/18 08:00 98.0 70 18 131/67 (88) 97 01/02/18 00:15 93 01/02/18 00:00 98.5 92 20 137/67 (90) 94 01/01/18 20:21 18 01/01/18 20:00 98.4 82 21 148/70 (96) 100 01/01/18 16:20 97.1 72 18 165/77 (106) 100 01/01/18 16:08 Physical Exam GENERAL: This is a well-nourished, well-developed patient, in no apparent distress. SKIN: No rashes, ecchymoses or lesions. Cool and dry. HEAD: Atraumatic. Normocephalic. No temporal or scalp tenderness. EYES: Pupils equal round and reactive. Extraocular motions intact. No scleral icterus. No injection or drainage. ENT: Nose without bleeding, purulent drainage or septal hematoma. Throat without erythema, tonsillar hypertrophy or exudate. Uvula midline. Airway patent. NECK: Trachea midline. Supple, nontender, no meningeal signs. CARDIOVASCULAR: Regular rate and rhythm without murmurs, gallops, or rubs. RESPIRATORY: Clear to auscultation. Breath sounds equal bilaterally. No wheezes , rales, or rhonchi. GASTROINTESTINAL: Abdomen soft, non-tender, nondistended. MUSCULOSKELETAL: Left foot with ulcer on 5th MTP outer aspect. Minimal erythema surrounding it. Some purulent discharge could be expressed. NEUROLOGICAL: Awake and alert, oriented. Moves all extremities. Psych cooperative IV line sites with no e.o infection. Laboratory Laboratory Tests Test 01/02/18 04:25 White Blood Count 8.9 Red Blood Count 3.64 Hemoglobin 10.3 Hematocrit 29.9 Mean Corpuscular Volume 82.1 Mean Corpuscular Hemoglobin 28.2 Mean Corpuscular Hemoglobin Concent 34.4 Red Cell Distribution Width 15.1 Platelet Count 248 Mean Platelet Volume 7.5 Neutrophils (%) (Auto) 57.3 Lymphocytes (%) (Auto) 28.7 Monocytes (%) (Auto) 10.1 Eosinophils (%) (Auto) 3.3 Basophils (%) (Auto) 0.6 Neutrophils # (Auto) 5.1 Lymphocytes # (Auto) 2.5 Monocytes # (Auto) 0.9 Eosinophils # (Auto) 0.3 Basophils # (Auto) 0.1 CBC Comment DIFF FINAL Differential Comment Blood Urea Nitrogen 47 Creatinine 2.50 Random Glucose 88 Total Protein 7.8 Albumin 2.8 Calcium Level 9.1 Alkaline Phosphatase 81 Aspartate Amino Transf (AST/SGOT) 12 Alanine Aminotransferase (ALT/SGPT) 14 Total Bilirubin 0.4 Sodium Level 135 Potassium Level 4.5 Chloride Level 100 Carbon Dioxide Level 27.0 Anion Gap 8 Estimat Glomerular Filtration Rate 27 Date/Time Source Procedure Growth Status 01/02/18 04:40 Blood Peripheral Aerobic Blood Culture Pending Received 01/02/18 04:40 Blood Peripheral Anaerobic Blood Culture Pending Received 01/01/18 13:01 Wound Foot Gram Stain - Final Resulted 01/01/18 13:01 Wound Foot Wound Culture Pending Resulted Result Diagram: 01/02/18 0425 01/02/18 0425 Imaging Last Impressions Foot MRI 01/01/18 0000 Signed Impressions: Service Date/Time: Monday, January 01, 2018 14:20 - CONCLUSION: Osteomyelitis, cellulitis and subcutaneous abscess seen at the level of the fifth digit. Juan Arredondo MD Assessment and Plan Assessment and Plan Left 5th digit outer aspect osteomyelitis. Left foot cellulitis possible abscess. DM with Neuropathy HTN Single kidney (? removed due to atrophy at ) Chronic kidney disease (never seen a orchestra director to date, says has been trying for last 6 months) Recs: US kidney to assess kidney status. Nephrology consult to help establish care and also help with acute kidney injury. Patient has been trying to get in with [facility] for last 1 year. Hold off antibiotics until after surgery. Once surgery completed please start Cefepime. If any gram positives use Zyvox IV. Avoid Nephrotoxins like Vanco IV. Follow cultures Follow clinically. tuan Patient need for IV antibiotics if resistant organisms with no oral options or path s/o residual osteomyelitis. He insists on no Port PICC at present time. I explained to him I will relay this to as if complete surgical excision achieved with no residual osteomyelitis then possible oral option if available based on susceptibility. tuan Rizo. Prerna Hensley MD Jan 02, 2018 13:23
[2018-01-02 16:00] VITALS: BP 144/79; PULSE 79; RESP 18; TEMP 98.1; O2SAT 99
[2018-01-02] MEDS ORDERED: BUPIVACAINE HCL PF 0.5% 30 ML VIAL ONE (16:11)
[2018-01-02] MEDS ORDERED: LIDOCAINE HCL 2% 50 ML VIAL ONE (16:11)
--- NOTE | 2018-01-02 18:25 | PD.CONS ---
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 Patient was seen by Dr. Hawkins on Tuesday and she had concern for osteomyelitis. Patient reported Dr. Hawkins called him and asked him to come into ED for preparation of Left foot wound surgical evaluation. He has been seeing Dr. Hawkins this past year about every two weeks due to chronic foot ulcers. Right foot wound has healed but he developed left foot wound on the side of the small toe about 4 wks ago. Patient states he has no pain on Left foot. Of note patient had "Right ankle collapse" recently which has resulted in Right LE and ankle pain. Denies fever or chills. 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 right rotator cuff repair, 2011 hernia repair, Right side, 1994 Right big toe partial amputation, jul 2017 skin cancer removal, across left chest Active Ordered Medications Current Medications Medications (Trade) Dose Ordered Sig/Teo Route Start Time Stop Time Status Last Admin Sodium Chloride 1,000 ml @ 100 mls/hr Q10H IV 01/01/18 14:59 01/02/18 16:19 (NS Flush) 2 ml UNSCH PRN IV FLUSH 01/01/18 15:00 (NS Flush) 2 ml BID IV FLUSH 01/01/18 21:00 (Zofran Inj) 4 mg Q6H PRN IVP 01/01/18 15:00 (Narcan Inj) 0.4 mg UNSCH PRN IV PUSH 01/01/18 15:00 (Rhonda-Colace) 1 tab BID PO 01/01/18 21:00 01/02/18 09:03 (Milk Of Magnesia Liq) 30 ml Q12H PRN PO 01/01/18 15:00 (Senokot) 17.2 mg Q12H PRN PO 01/01/18 15:00 (Dulcolax Supp) 10 mg DAILY PRN RECTAL 01/01/18 15:00 (Lactulose Liq) 30 ml DAILY PRN PO 01/01/18 15:00 (D50w (Vial) Inj) 50 ml UNSCH PRN IV PUSH 01/01/18 15:15 (Glucagon Inj) 1 mg UNSCH PRN OTHER 01/01/18 15:15 (NovoLOG SUPPLEMENTAL SCALE) 1 ACHS SLIDING SCALE SQ 01/01/18 17:00 01/02/18 11:55 (Trusopt 2% Opth Soln) 1 drop BID EACH EYE 01/01/18 21:00 01/02/18 09:03 (Neurontin) 200 mg BID PO 01/01/18 21:00 01/02/18 09:05 (Xalatan 0.005% Opth Soln) 1 drop HS EACH EYE 01/01/18 21:00 (Lactinex) 1 tab DAILY PO 01/02/18 09:00 01/02/18 09:03 (Oramorph Sr) 30 mg Q12HR PO 01/01/18 21:00 01/02/18 09:05 (Catapres) 0.1 mg Q6H PRN PO 01/01/18 19:30 Lactated Ringer's 1,000 ml @ 30 mls/hr Q24H PRN IV 01/02/18 00:45 01/05/18 00:44 (Levemir Inj) 28 units HS SQ 01/02/18 21:00 Family History gastrointestinal issues arthritis iron deficiency Social History Lives with and daughter (12 yo) smoking- cigars 2-3/day, 40 years alcohol- rarely illicit drug use- denies Physical Exam Vital Signs Vital Signs Date Time Temp Pulse Resp B/P (MAP) Pulse Ox O2 Delivery O2 Flow Rate FiO2 01/02/18 16:00 98.1 79 18 144/79 (100) 99 01/02/18 12:00 98.0 78 18 140/69 (92) 98 01/02/18 08:00 98.0 70 18 131/67 (88) 97 01/02/18 00:15 93 01/02/18 00:00 98.5 92 20 137/67 (90) 94 01/01/18 20:21 18 01/01/18 20:00 98.4 82 21 148/70 (96) 100 Physical Exam Left plantar 5th metatarsal head area with exposed bone, mild edema and erythema locally and to left 5th digit. Absent light touch sensation. Palpable pedal pulses. Laboratory Laboratory Tests Test 01/02/18 04:25 White Blood Count 8.9 Red Blood Count 3.64 Hemoglobin 10.3 Hematocrit 29.9 Mean Corpuscular Volume 82.1 Mean Corpuscular Hemoglobin 28.2 Mean Corpuscular Hemoglobin Concent 34.4 Red Cell Distribution Width 15.1 Platelet Count 248 Mean Platelet Volume 7.5 Neutrophils (%) (Auto) 57.3 Lymphocytes (%) (Auto) 28.7 Monocytes (%) (Auto) 10.1 Eosinophils (%) (Auto) 3.3 Basophils (%) (Auto) 0.6 Neutrophils # (Auto) 5.1 Lymphocytes # (Auto) 2.5 Monocytes # (Auto) 0.9 Eosinophils # (Auto) 0.3 Basophils # (Auto) 0.1 CBC Comment DIFF FINAL Differential Comment Blood Urea Nitrogen 47 Creatinine 2.50 Random Glucose 88 Total Protein 7.8 Albumin 2.8 Calcium Level 9.1 Alkaline Phosphatase 81 Aspartate Amino Transf (AST/SGOT) 12 Alanine Aminotransferase (ALT/SGPT) 14 Total Bilirubin 0.4 Sodium Level 135 Potassium Level 4.5 Chloride Level 100 Carbon Dioxide Level 27.0 Anion Gap 8 Estimat Glomerular Filtration Rate 27 Date/Time Source Procedure Growth Status 01/02/18 04:40 Blood Peripheral Aerobic Blood Culture Pending Received 01/02/18 04:40 Blood Peripheral Anaerobic Blood Culture Pending Received 01/01/18 13:01 Wound Foot Gram Stain - Final Resulted 01/01/18 13:01 Wound Culture - Preliminary Pseudomonas Species Resulted Result Diagram: 01/02/18 0425 01/02/18 0425 Imaging Last 72 hours Impressions Foot MRI 01/01/18 0000 Signed Impressions: Service Date/Time: Monday, January 01, 2018 14:20 - CONCLUSION: Osteomyelitis, cellulitis and subcutaneous abscess seen at the level of the fifth digit. Juan Arredondo MD Assessment and Plan Assessment and Plan Osteomyelitis left 5th metatarsal and toe To OR for left foot partial 5th ray amputation with bone biopsy. NPO after breakfast Discharge Planning Patient will be strict nonweightbearing right and left foot. He has acute charcot deformity on right foot, and will be post-amputation left foot. May need rehab vs home with wheelchair. Alyssa Barrios DPM Jan 02, 2018 18:25
--- NOTE | 2018-01-02 18:58 | HHI.PR ---
Immediate Post Op Note Procedure Date: Jan 02, 2018 Pre Op Diagnosis: Osteomyelitis left 5th metatarsal and toe Post Op Diagnosis: Same Surgeon: Alyssa Barrios DPM Glass Bead Maker(s): Staff Procedure: Partial 5th ray amputation left foot with bone biopsy Findings: Consistent with diagnosis. Left 5th metatarsal head area wound with probe to bone. Mild purulence present. Mild localized erythema. No necrosis noted. Mild edema to 5th digit. Additional Information: Two semielliptical incisions made encompassing left 5th toe and plantar wound down to bone of midshaft 5th metatarsal. 5th metatarsal transected at level of midshaft and specimen to pathology. Bone removed from residual 5th metatarsal and sent as bone biopsy. Culture taken of wound area prior to surgery. Irrigation with 6L Normal saline , then post-procedure culture taken. Residual wound healthy and viable in appearance without necrosis or purulence. Primary closure with 2-0 nylon performed, followed by dressing with xeroform, 4x4, abd pad x 2, cast padding, mary grace left foot. Nonweightbearing left foot and right foot (acute charcot) Await bone biopsy to determine length of antibiotics. No further surgery anticipated. Complications: None Specimen(s) removed: 1. culture pre-surgical L foot 2. culture post-surgical L foot 3. left 5th metatarsal and toe to pathology 4. left residual 5th metatarsal to pathology for bone biopsy Estimated blood loss: 25mL Anesthesia: MAC, Local (10mL 2% lidocaine plain) Drains: None IVF Tourniquet time (min at mmHg) n/a Patient to: PACU Patient Condition: Good Date/Time of Procedure: SEE SURGICAL CARE RECORD Alyssa Barrios DPM Jan 02, 2018 18:58
[2018-01-02] MEDS ORDERED: DO NOT ADM ANY ANTICOAGULANT DRUGS PRN (20:00)
[2018-01-02] MEDS: INSULIN DETEMIR 100 UNITS/ML VIAL SQ SCH (21:48)
[2018-01-02] MEDS: LATANOPROST 0.005% OPHT SOLN 2.5 ML BTL EACH EYE SCH (21:56)
[2018-01-02 22:02] VITALS: O2SAT 97
--- NOTE | 2018-01-02 22:30 | RADRPT ---
EXAM DATE/TIME: 01/02/2018 19:01 [facility] COMPARISON: No previous studies available for comparison. INDICATIONS : Post op left foot 5th toe removal. MEDICAL HISTORY : Diabetes mellitus type II. SURGICAL HISTORY : Umbilical hernia repair. Nephrectomy, right. Right great toe amputation. ENCOUNTER: Initial ACUITY: 1 day PAIN SCORE: 3/10 LOCATION: Left foot FINDINGS: Three-view examination of the foot demonstrates amputation of the 5th digit at the level of the mid s haft of the 5th metatarsal bone. There is soft tissue irregularity and gas in the soft tissues dista l to the amputation fractures of the postoperative changes. No radiopaque foreign body is seen. The remainder of the osseous structures of the foot are intact. CONCLUSION: Postoperative findings from 5th digit amputation. Jonathan Hernandez MD on January 02, 2018 at 22:27 Board Certified Radiologist. This report was verified electronically.
--- NOTE | 2018-01-02 23:02 | RADRPT ---
EXAM DATE/TIME: 01/02/2018 19:44 [facility] COMPARISON: CT ABDOMEN & PELVIS W/O CONTRAST, April 21, 2011, 22:19. INDICATIONS : Hydronephrosis. MEDICAL HISTORY : Gastroesophageal reflux disease. Heart palpitations. Myocardial infarction. Hypertension. Diabetic. SURGICAL HISTORY : Tonsillectomy. Appendectomy. Cholecystectomy. Inguinal hernia repair, right. Right nephrectomy. Righ t shoulder surgery. ENCOUNTER: Subsequent ACUITY: 1 day PAIN SCORE: 0/10 LOCATION: Bilateral flank MEASUREMENTS: RIGHT KIDNEY: Surgically absent LEFT KIDNEY: 14.2 x 5.1 x 7.5 cm FINDINGS: RIGHT KIDNEY: Surgically absent. LEFT KIDNEY: Renal cortex is normal in thickness and echotexture. No hydronephrosis, stone, or mass. There is pa renchymal scar at the upper pole, stable from the prior examination. BLADDER: Within normal limits given the degree of distension. CONCLUSION: There is no hydronephrosis or acute abnormality. Schuyler Alexander MD on January 02, 2018 at 23:00 Board Certified Radiologist. This report was verified electronically.
[2018-01-03] VITALS: BP 143/74; PULSE 86; RESP 17; TEMP 97; O2SAT 96
[2018-01-03 04:00] VITALS: BP 124/76; PULSE 70; RESP 17; TEMP 97; O2SAT 96
[2018-01-03] MEDS: SODIUM CHLOR 0.9% 1000 ML INJ 1,000 ML IV SCH ×2 (05:42→10:46)
[2018-01-03 07:27] LABS: HEMATOCRIT 29.1 % (39.0-51.0); HEMOGLOBIN 9.7 GM/DL (13.0-17.0); MEAN CELL VOLUME 81.3 FL (80.0-100.0); MEAN CORPUSCULAR HGB CONC 33.3 % (32.0-36.0); MEAN PLATELET VOLUME 7.3 FL (7.0-11.0); PLATELET COUNT 222 TH/MM3 (150-450); RED BLOOD COUNT 3.58 MIL/MM3 (4.50-5.90); RED CELL DISTRIBUTION WIDTH 15.2 % (11.6-17.2); WHITE BLOOD COUNT 8.4 TH/MM3 (4.0-11.0)
[2018-01-03] MEDS: INSULIN ASPART SUPPLEMENTAL SCALE SQ SCH ×2 (07:58→21:52)
[2018-01-03 08:00] VITALS: BP 130/69; PULSE 81; RESP 16; TEMP 99.5; O2SAT 97
[2018-01-03 08:13] LABS: ALBUMIN 2.6 GM/DL (3.4-5.0); ALKALINE PHOSPHATASE 96 U/L (45-117); ALT (GPT) 14 U/L (12-78); AST (GOT) 15 U/L (15-37); BLOOD UREA NITROGEN 37 MG/DL (7-18); CHLORIDE 105 MEQ/L (98-107); CREATININE 1.83 MG/DL (0.60-1.30); GLOMERULAR FILTRATION RATE 39 ML/MIN (>89); GLUCOSE,RANDOM 147 MG/DL (74-106); SODIUM (NA) 138 MEQ/L (136-145); TOTAL BILIRUBIN ADULT 0.4 MG/DL (0.2-1.0); TOTAL PROTEIN 7.3 GM/DL (6.4-8.2)
[2018-01-03] MEDS: GABAPENTIN 100 MG CAP PO SCH ×2 (08:19→20:20)
[2018-01-03] MEDS: DOCUSATE SODIUM 50 MG/SENNA 8.6 MG TAB PO SCH ×2 (08:19→20:21)
[2018-01-03] MEDS: MORPHINE SULFATE 30 MG CONTROLLED RELEASE TAB PO SCH ×2 (08:19→20:21)
[2018-01-03] MEDS: SODIUM CHLORIDE 0.9% FLUSH 10 ML FLUSH IV FLUSH SCH ×2 (08:19→20:23)
[2018-01-03] MEDS: LACTOBACILLUS ACIDOPHILUS TAB PO SCH (08:19)
[2018-01-03] MEDS: DORZOLAMIDE 2% OPTH SOLN 200 DROP/10 ML BTLO EACH EYE SCH ×2 (08:20→20:22)
[2018-01-03] MEDS ORDERED: CALCIUM CARBONATE 1.25 GM (CA 500 MG) TAB PO ONE (09:45)
--- NOTE | 2018-01-03 10:05 | HHI.FPPN ---
Subjective Remarks Patient seen and examined this morning. No acute events overnight. Nurse informed us that patient is refusing novolog based on sliding scale and levemir because it is not the amount of units he takes at home and because the long acting insulin is not the same as the one he takes at home. It was explained to the patient that the hospital pharmacy does not carry tresiba and levemir is a 1 -to1 conversion with tresiba, however pt still refused levemir last night. Patient is also refusing NS. Pt with complains of right elbow pain this am. It was discussed with patient at length that the reason we change his insulin regimen in the hospital is because the BG ranges and insulin requirement changes for patients when they are in the hospital setting and we will make adjustment to insulin doses as needed. Patient is tolerating po well. (Malathi Charles MD, R1) Objective Vitals Vital Signs Date Time Temp Pulse Resp B/P (MAP) Pulse Ox O2 Delivery O2 Flow Rate FiO2 01/03/18 08:00 99.5 81 16 130/69 (89) 97 01/03/18 04:00 97.0 70 17 124/76 (92) 96 01/03/18 00:00 97.0 86 17 143/74 (97) 96 01/02/18 22:02 97 01/02/18 19:00 74 16 147/79 (101) 97 Room Air 01/02/18 18:45 76 16 147/74 (98) 99 Room Air 01/02/18 18:30 78 16 147/72 (97) 99 Room Air 01/02/18 18:27 98.4 78 16 153/73 (99) 98 Room Air 01/02/18 16:00 98.1 79 18 144/79 (100) 99 01/02/18 12:00 98.0 78 18 140/69 (92) 98 I/O 01/02/18 01/02/18 01/02/18 01/03/18 01/03/18 01/03/18 07:00 15:00 23:00 07:00 15:00 23:00 Intake Total 1000 ml 850 ml 1240 ml Output Total 1530 ml 1350 ml Balance 1000 ml -680 ml -110 ml Intake Oral 0 ml 480 ml 240 ml IV Total 1000 ml 370 ml 1000 ml Output Urine Total 1500 ml 1350 ml Estimated Blood Loss 30 ml # Voids 0 # Bowel Movements 0 0 (Malathi Charles MD, R1) Result Diagram: 01/03/18 0650 01/03/18 0640 Objective Remarks GENERAL: This is a well-nourished, well-developed patient, sitting in bed in no apparent distress. SKIN: No rashes, or ecchymoses. Cool and dry. HEAD: Atraumatic. Normocephalic. EYES: Extraocular motions intact. No scleral icterus. No injection or drainage. ENT: Nose without bleeding, purulent drainage or septal hematoma. NECK: Trachea midline. No JVD or lymphadenopathy. Supple, nontender, no meningeal signs. CARDIOVASCULAR: Regular rate and rhythm without murmurs, gallops, or rubs. RESPIRATORY: Clear to auscultation BL. No wheezes, rales, or rhonchi. GASTROINTESTINAL: Abdomen soft, non-tender, nondistended. No hepato-splenomegaly , or palpable masses. No guarding. MUSCULOSKELETAL: Extremities without clubbing or cyanosis. Edema noted around Right ankle. Joint tenderness to palpation on Right ankle. Calf tenderness on R LE, present since injuring Right ankle. Left foot wound covered with bandage today. NEUROLOGICAL: Awake and alert. Pt with neuropathy, no sensation on plantar aspect of feet BL. Normal speech. (Malathi Charles MD, R1) A/P Assessment and Plan Patient is 57-year-old Male with PMHx of DM, neuropathy, and HTN presents to the ED on request of his director plans Dr. Barrios due to concern for osteomyelitis via chronic Left foot wound. Patient is stable, afebrile, no leukocytosis, elevated ESR and CRP. MRI positive for osteomyelitis. POD# 1 of partial 5th ray amputation left foot with bone biopsy by Dr. Barrios (Malathi Charles MD, R1) Attending Attestation Patient seen and examined at approximately 2:05 PM. Complains of pain and inability to move his right arm from the elbow to the wrist. Claims that this happened previously after an IV. No complaint of pain in the postop area of his left foot. There is some erythema in the antecubital space but his arm is otherwise nontender to touch. Moves his arm very gingerly. Exam is as otherwise noted above, I agree. Will order K thermia pad and consider ultrasound if symptoms do not zuhair. Patient seen and examined. Case reviewed and discussed with the resident team. Agree with plan of care as discussed with me and documented in the resident note. (Kyra Razo MD) Problem List: (1) Osteomyelitis ICD Codes: M86.9 - Osteomyelitis, unspecified Status: Acute Plan: Patient with h/o of chronic left foot wound since 4 wks ago. Patient has been following with Dr. Barrios and was advised to come to ED due to concerns of osteomyelitis Patient with h/o neuropathy, currently denies any pain on Left foot. On admission ESR >140, CRP 11 No leukocytosis, Afebrile. Patient is stable Left foot MRI: Osteomyelitis, cellulitis and subcutaneous abscess seen at the level of the fifth digit. -Podiatry consulted, appreciated recommendations POD# 1 of partial 5th ray amputation left foot with bone biopsy by Dr. Barrios -ID consulted, appreciate recommendations renal u/s: No hydronephrosis or acute abnormality Pt started on cefepime 2g IV Q8h (01/03--) Wound cx: pending, If any gram positives use Zyvox IV. Fungal smear: No fungal elements seen Acid Fast Stain: pending Gram stain: Rare WBC, no organisms seen (2) Diabetes mellitus ICD Codes: E11.9 - Type 2 diabetes mellitus without complications Status: Chronic Plan: On admission BG 140 Patient is refusing hospital insulin regimen. BG of 158 this morning, At home patient insulin regimen: 15 units of novolog before meals and 56 units HS of long lasting insulin tresiba. Spoke to pharmacy 01/02, we do not carry tresiba. Substitution can be made with levemir and there is a 1-to-1 conversion. Hospital insulin regimen updated: novolog 5 units TIDAC Levemir 28 units HS sliding scale discontinued -will continue to monitor BG and adjust as needed Bedside glucose checks home diabetic medication held hypoglycemia protocol (3) HTN (hypertension) ICD Codes: I10 - Essential (primary) hypertension Status: Chronic Plan: Blood pressure within normal limits, 137/67 -Blood pressure medications held due to initial blood pressure of 96/54. Resume hypertension medication depending on repeat blood pressure readings. Continue to monitor (4) Chronic kidney disease ICD Codes: N18.9 - Chronic kidney disease, unspecified Status: Chronic Plan: On admission Creatinine of 2.59, baseline 1.5-2 Cr downtrending Continue to monitor Avoid nephrotoxic agents Nephrology consulted (5) Neuropathy ICD Codes: G62.9 - Polyneuropathy, unspecified Status: Chronic Plan: Continue with gabapentin 200 by mouth twice a day (6) Nutrition, metabolism, and development symptoms ICD Codes: R63.8 - Other symptoms and signs concerning food and fluid intake Plan: Fluids: 100 mls/hr Electrolytes: will continue to monitor, replete as needed. Nutrition: Diabetic diet DVT ppx: SCDs (Malathi Charles MD, R1) Problem Qualifiers (1) Osteomyelitis: Qualified Codes: M86.172 - Other acute osteomyelitis, left ankle and foot Malathi Charles MD, R1 Jan 03, 2018 10:05 Kyra Razo MD Jan 03, 2018 15:12
[2018-01-03] MEDS ORDERED: WHEEMIS3 (10:08)
[2018-01-03] MEDS ORDERED: WALKER GLIDE WH1 MI1 (10:08)
[2018-01-03] MEDS: CEFEPIME INJ 2,000 MG in SODIUM CHLORIDE 0.9% INJ 100 ML IV SCH ×2 (10:43→18:09)
[2018-01-03 12:00] VITALS: BP 136/64; PULSE 91; RESP 16; TEMP 98.6; O2SAT 96
--- NOTE | 2018-01-03 13:00 | PD.CONS ---
[facility] Service Nephrology Consult Requested By Dr. Hensley Reason for Consult Acute on chronic renal insufficiency Primary Care Physician Gale Hdez MD History of Present Illness The patient is a 57 yo [place] male who presented to this facility on 01/01 at the urge of Dr. Hawkins for evaluation of left foot wound. He has known hx of CKD, but uncertain of baseline. 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 Uncertain of baseline SCr levels. MRi of the foot showed osteomyelitis with cellulitis and overlying abscess. Denies any NSAID use, no NVD. Besides foot pain states he is feeling OK. From review of hospital labs dating back to 2010, appears baseline SCr 1.7-1.8 He is a longstanding IDDM with neuropathy. 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 Admitting SCr 2.59 that has improved to 1.83 at consult. 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 11 d/t atrophy Rotator cuff repair Hernia repair R great toe amputation Jul 2017 Skin CA resection Reported Medications Morphine ER (Morphine Sulfate) 30 Mg Tab 30 Mg PO BID Super B Complex (Vitamin B Complex Vit C No.4) 150 Mg Tablet 1 Tab PO DAILY Vitamin D3 (Cholecalciferol) 2,000 Unit Cap 2,000 Units PO DAILY Gabapentin 100 Mg Cap 200 Mg PO BID Probiotic (Lactobacillus Combo No.10) 20 Billion Cell Capsule 1 Cap PO DAILY Dorzolamide Opth Drops (Dorzolamide HCl) 2% Soln 1 Drop EACH EYE BID Cypriot Cod Liver Oil (Cod Liver Oil) 1 Cap 415 Mg PO DAILY Latanoprost Opth Drops (Latanoprost) 0.005% Drops 1 Drop EACH EYE HS Refrigerate until opened. Lisinopril 40 Mg Tab 40 Mg PO DAILY Fiber Gummies (Inulin) 2 Gram Tab.chew 2 Gm PO BID Tresiba Flextouch Pen Inj (Insulin Degludec Inj) 300 unit/3 ML Pen 56 Units SQ HS Novolog Flexpen Inj (Insulin Aspart) 300 Unit/3 Ml Pen 15 Units SQ TIDAC Hydrochlorothiazide 25 Mg Tab 25 Mg PO DAILY Glimepiride 1 Mg Tab 1 Mg PO DAILY Take with breakfast or first main meal Active Ordered Medications Current Medications Medications (Trade) Dose Ordered Sig/Teo Route Start Time Stop Time Status Last Admin Sodium Chloride 1,000 ml @ 100 mls/hr Q10H IV 01/01/18 14:59 01/02/18 16:19 (NS Flush) 2 ml UNSCH PRN IV FLUSH 01/01/18 15:00 (NS Flush) 2 ml BID IV FLUSH 01/01/18 21:00 01/03/18 08:19 (Zofran Inj) 4 mg Q6H PRN IVP 01/01/18 15:00 (Narcan Inj) 0.4 mg UNSCH PRN IV PUSH 01/01/18 15:00 (Rhonda-Colace) 1 tab BID PO 01/01/18 21:00 01/03/18 08:19 (Milk Of Magnesia Liq) 30 ml Q12H PRN PO 01/01/18 15:00 (Senokot) 17.2 mg Q12H PRN PO 01/01/18 15:00 (Dulcolax Supp) 10 mg DAILY PRN RECTAL 01/01/18 15:00 (Lactulose Liq) 30 ml DAILY PRN PO 01/01/18 15:00 (Trusopt 2% Opth Soln) 1 drop BID EACH EYE 01/01/18 21:00 01/03/18 08:20 (Neurontin) 200 mg BID PO 01/01/18 21:00 01/03/18 08:19 (Xalatan 0.005% Opth Soln) 1 drop HS EACH EYE 01/01/18 21:00 01/02/18 21:56 (Lactinex) 1 tab DAILY PO 01/02/18 09:00 01/03/18 08:19 (Oramorph Sr) 30 mg Q12HR PO 01/01/18 21:00 01/03/18 08:19 (Catapres) 0.1 mg Q6H PRN PO 01/01/18 19:30 Lactated Ringer's 1,000 ml @ 30 mls/hr Q24H PRN IV 01/02/18 00:45 01/05/18 00:44 (Levemir Inj) 28 units HS SQ 01/02/18 21:00 Miscellaneous Information ALL NURSING DEPARTME... UNSCH PRN .XX 01/02/18 20:00 01/03/18 19:59 Cefepime HCl 2000 mg/Sodium Chloride 100 ml @ 200 mls/hr Q8H IV 01/03/18 11:00 01/03/18 10:43 (NovoLOG INJ) 5 units TIDAC SQ 01/03/18 12:00 (Tylenol) 650 mg Q6HR PRN PO 01/03/18 12:00 Family History NC Social History Smokes cigars Rare EtOH use Denies illicits (Maria C Wright) Physical Exam Vital Signs Vital Signs Date Time Temp Pulse Resp B/P (MAP) Pulse Ox O2 Delivery O2 Flow Rate FiO2 01/03/18 12:00 98.6 91 16 136/64 (88) 96 01/03/18 08:00 99.5 81 16 130/69 (89) 97 01/03/18 04:00 97.0 70 17 124/76 (92) 96 01/03/18 00:00 97.0 86 17 143/74 (97) 96 01/02/18 22:02 97 01/02/18 19:00 74 16 147/79 (101) 97 Room Air 01/02/18 18:45 76 16 147/74 (98) 99 Room Air 01/02/18 18:30 78 16 147/72 (97) 99 Room Air 01/02/18 18:27 98.4 78 16 153/73 (99) 98 Room Air 01/02/18 16:00 98.1 79 18 144/79 (100) 99 Physical Exam GENERAL: Laying in bed complaining of R arm pain from IV infiltration. Otherwise NAD SKIN: Warm and dry. HEAD: Atraumatic. Normocephalic. EYES: Pupils equal and round. No scleral icterus. No injection or drainage. ENT: No nasal bleeding or discharge. Mucous membranes pink and moist. NECK: Trachea midline. No JVD. CARDIOVASCULAR: Regular rate and rhythm. RESPIRATORY: No accessory muscle use. Clear to auscultation. Breath sounds equal bilaterally. GASTROINTESTINAL: Abdomen soft, non-tender, nondistended. Hepatic and splenic margins not palpable. MUSCULOSKELETAL: Extremities without clubbing, cyanosis, or edema NEUROLOGICAL: Awake and alert. Normal speech. PSYCHIATRIC: Appropriate mood and affect; insight and judgment normal. Laboratory Laboratory Tests Test 01/03/18 06:40 01/03/18 06:50 Blood Urea Nitrogen 37 Creatinine 1.83 Random Glucose 147 Total Protein 7.3 Albumin 2.6 Calcium Level 8.0 Alkaline Phosphatase 96 Aspartate Amino Transf (AST/SGOT) 15 Alanine Aminotransferase (ALT/SGPT) 14 Total Bilirubin 0.4 Sodium Level 138 Potassium Level 4.4 Chloride Level 105 Carbon Dioxide Level 25.0 Anion Gap 8 Estimat Glomerular Filtration Rate 39 White Blood Count 8.4 Red Blood Count 3.58 Hemoglobin 9.7 Hematocrit 29.1 Mean Corpuscular Volume 81.3 Mean Corpuscular Hemoglobin 27.0 Mean Corpuscular Hemoglobin Concent 33.3 Red Cell Distribution Width 15.2 Platelet Count 222 Mean Platelet Volume 7.3 Date/Time Source Procedure Growth Status 01/02/18 04:40 Blood Peripheral Aerobic Blood Culture - Preliminary NO GROWTH IN 1 DAY Resulted 01/02/18 04:40 Blood Peripheral Anaerobic Blood Culture - Preliminary NO GROWTH IN 1 DAY Resulted 01/02/18 18:32 Wound Foot Fungal Smear - Final NO FUNGAL ELEMENTS SEEN. Resulted 01/02/18 18:32 Wound Foot Fungal Culture Pending Resulted (Maria C Wright) Result Diagram: 01/03/18 0650 01/03/18 0640 Imaging Last Impressions Renal Ultrasound 01/02/18 0000 Signed Impressions: Service Date/Time: Tuesday, January 02, 2018 19:44 - CONCLUSION: There is no hydronephrosis or acute abnormality. Schuyler Alexander MD Foot X-Ray 01/02/18 0000 Signed Impressions: Service Date/Time: Tuesday, January 02, 2018 19:01 - CONCLUSION: Postoperative findings from 5th digit amputation. Jonathan Hernandez MD Foot MRI 01/01/18 0000 Signed Impressions: Service Date/Time: Monday, January 01, 2018 14:20 - CONCLUSION: Osteomyelitis, cellulitis and subcutaneous abscess seen at the level of the fifth digit. Juan Arredondo MD (Maria C Wright) Assessment and Plan Problem List: (1) Acute on chronic renal insufficiency ICD Codes: N28.9 - Disorder of kidney and ureter, unspecified; N18.9 - Chronic kidney disease, unspecified Plan: Baseline SCr appears to be 1.7-1.8 range with underlying CKD likely related to diabetic nephropathy and hypertensive nephrosclerosis Has improved with IV hydration so likely related to pre-renal factors. BCx and UCx pending. Renal US showed no obstructive process. Pt has refused continued IVF today 2/2 to infiltration and arm pain. Encouraged continued po intake. We will repeat renal panel in the AM. If he is back to his baseline, we will likely follow peripherally. Medications should be adjusted for the patient's renal insufficiency. Avoid NSAIDs and other nephrotoxic medications. Avoid gadolinium when eGFR <30. (2) HTN (hypertension) ICD Codes: I10 - Essential (primary) hypertension Status: Chronic Plan: Home ACEi held. Continue other home medications (3) Diabetes mellitus ICD Codes: E11.9 - Type 2 diabetes mellitus without complications Status: Chronic Plan: Mgmt as per primary (4) Osteomyelitis ICD Codes: M86.9 - Osteomyelitis, unspecified Status: Acute Plan: Mgmt as per ID (Maria C Wright) Assessment and Plan The patient reviewed with the physician assistant project manager whom was under my direct supervision and I had face to face contact with the patient today and was fully involved in formulating a plan of treatment and followup. (Lashawn Kline MD) Problem Qualifiers (1) Osteomyelitis: Qualified Codes: M86.172 - Other acute osteomyelitis, left ankle and foot Maria C Wright Jan 03, 2018 13:00 Lashawn Kline MD Jan 03, 2018 18:48
[2018-01-03] MEDS: INSULIN ASPART 1,000 UNITS/10 ML VIAL SQ SCH ×2 (13:25→17:20)
[2018-01-03] MEDS: ACETAMINOPHEN 325 MG TAB PO PRN ×2 (13:26→21:05)
[2018-01-03 14:47] LABS: % SATURATION IRON PROFILE 9.1 % (20-50); IRON (FE) 16 MCG/DL (65-175); TOTAL IRON BINDING CAPACITY 175 MCG/DL (250-450)
[2018-01-03 14:49] LABS: FERRITIN 483 NG/ML (26-388)
[2018-01-03 14:57] LABS: IMMUNOGLOBULIN A 387 MG/DL (93-514); IMMUNOGLOBULIN G 1680 MG/DL (660-1640); KAPPA LAMBDA RATIO 1.42 (1.57-3.93); KAPPA LIGHT CHAIN 412 MG/DL (170-370); LAMBDA LIGHT CHAIN 291 MG/DL (90-210)
[2018-01-03 15:07] LABS: IMMUNOGLOBULIN M 91 MG/DL (40-247)
[2018-01-03 16:00] VITALS: BP 115/66; PULSE 74; RESP 16; TEMP 98.2; O2SAT 96
--- NOTE | 2018-01-03 16:26 | PD.POD ---
Subjective Podiatric Problems s/p left partial 5th ray amputation with bone biopsy 01.02.18 Dr Barrios Past Med/Surg/Social History Social History Smoking Status: Current Every Day Smoker Objective Vital Signs Vital Signs Date Time Temp Pulse Resp B/P (MAP) Pulse Ox O2 Delivery O2 Flow Rate FiO2 01/03/18 16:00 98.2 74 16 115/66 (82) 96 01/03/18 12:00 98.6 91 16 136/64 (88) 96 01/03/18 08:00 99.5 81 16 130/69 (89) 97 01/03/18 04:00 97.0 70 17 124/76 (92) 96 01/03/18 00:00 97.0 86 17 143/74 (97) 96 01/02/18 22:02 97 01/02/18 19:00 74 16 147/79 (101) 97 Room Air 01/02/18 18:45 76 16 147/74 (98) 99 Room Air 01/02/18 18:30 78 16 147/72 (97) 99 Room Air 01/02/18 18:27 98.4 78 16 153/73 (99) 98 Room Air Coded Allergies: No Known Allergies (Verified , 08/01/17) Other Results L foot: Pseudomonas Microbiology Date/Time Source Procedure Growth Status 01/02/18 04:40 Blood Peripheral Aerobic Blood Culture - Preliminary NO GROWTH IN 1 DAY Resulted 01/02/18 04:40 Blood Peripheral Anaerobic Blood Culture - Preliminary NO GROWTH IN 1 DAY Resulted 01/02/18 18:32 Wound Foot Fungal Smear - Final NO FUNGAL ELEMENTS SEEN. Resulted 01/02/18 18:32 Wound Foot Fungal Culture Pending Resulted Objective Remarks Last 72 hours Impressions Renal Ultrasound 01/02/18 0000 Signed Impressions: Service Date/Time: Tuesday, January 02, 2018 19:44 - CONCLUSION: There is no hydronephrosis or acute abnormality. Schuyler Alexander MD Foot X-Ray 01/02/18 0000 Signed Impressions: Service Date/Time: Tuesday, January 02, 2018 19:01 - CONCLUSION: Postoperative findings from 5th digit amputation. Jonathan Hernandez MD Foot MRI 01/01/18 0000 Signed Impressions: Service Date/Time: Monday, January 01, 2018 14:20 - CONCLUSION: Osteomyelitis, cellulitis and subcutaneous abscess seen at the level of the fifth digit. Juan Arredondo MD Physical Exam Remarks bandage clean, dry, intact left foot Assessment & Plan A/P s/p left partial 5th ray amputation with bone biopsy 3.5.18 Dr Barrios Continue nonweightbearing right and left lower extremities. Awaiting bone biopsy Alyssa Barrios DPM Jan 03, 2018 16:26
--- NOTE | 2018-01-03 17:59 | RADRPT ---
EXAM DATE/TIME: 01/03/2018 16:53 [facility] COMPARISON: US ARM RIGHT VENOUS DOPPLER, August 04, 2017, 14:31. INDICATIONS : Right arm swelling. MEDICAL HISTORY : Gastroesophageal reflux disease. Heart palpitations. Myocardial infarction. Hypertension. Diabetic. SURGICAL HISTORY : Tonsillectomy. Appendectomy. Cholecystectomy. Inguinal hernia repair, right. Right nephrectomy. Right shoulder surgery. ENCOUNTER: Subsequent ACUITY: 1 day PAIN SCORE: 6/10 LOCATION: Right arm. FINDINGS: There is spontaneous flow documented in the brachial, basilic, axillary, and subclavian veins. The v essels are compressible and augmentation response is documented. No filling defects are seen. The f low is phasic with respiration. Direction of flow in the jugular vein is caudal. However, there cristina ears to be thrombus in the distal portion of the cephalic vein. The proximal and mid cephalic vein ap pear to be patent. CONCLUSION: 1. No evidence of DVT. 2. There is superficial thrombus in the distal cephalic vein. Lewis Laguerre MD on January 03, 2018 at 17:57 Board Certified Radiologist. This report was verified electronically.
[2018-01-03 18:10] LABS: BILIRUBIN, URINE NEG (NEG); BLOOD, URINE NEG (NEG); GLUCOSE,URINE NEG (NEG); KETONE, URINE NEG (NEG); NITRITE,URINE NEG (NEG); PH, URINE 6.5 (5.0-8.5); SPERM, URINE RARE; URINE COLOR LIGHT-YELLOW (YELLW/STRAW); URINE LEUKOCYTE ESTERASE NEG (NEG)
[2018-01-03 20:00] VITALS: BP 152/72; PULSE 84; RESP 18; TEMP 99.8; O2SAT 98
[2018-01-03] MEDS: LATANOPROST 0.005% OPHT SOLN 2.5 ML BTL EACH EYE SCH (20:22)
[2018-01-03] MEDS: INSULIN DETEMIR 100 UNITS/ML VIAL SQ SCH (20:26)
[2018-01-03 22:14] LABS: ALB/GLOB RATIO (SPE) 0.85 (1.39-2.23)
[2018-01-04] VITALS: BP 129/64; PULSE 80; RESP 18; TEMP 99.2; O2SAT 97
[2018-01-04] MEDS: SODIUM CHLOR 0.9% 1000 ML INJ 1,000 ML IV SCH ×3 (02:59→22:07)
[2018-01-04] MEDS: CEFEPIME INJ 2,000 MG in SODIUM CHLORIDE 0.9% INJ 100 ML IV SCH ×2 (03:56→13:30)
[2018-01-04] MEDS: ACETAMINOPHEN 325 MG TAB PO PRN ×2 (03:57→13:37)
[2018-01-04 08:00] VITALS: BP 161/69; PULSE 68; RESP 17; TEMP 96.6; O2SAT 99
[2018-01-04] MEDS ORDERED: INSULIN ASPART SUPPLEMENTAL SCALE SQ SCH (08:00)
[2018-01-04] MEDS: LACTOBACILLUS ACIDOPHILUS TAB PO SCH (08:26)
[2018-01-04] MEDS: DOCUSATE SODIUM 50 MG/SENNA 8.6 MG TAB PO SCH ×2 (08:26→20:52)
[2018-01-04] MEDS: GABAPENTIN 100 MG CAP PO SCH ×2 (08:26→20:52)
[2018-01-04] MEDS: SODIUM CHLORIDE 0.9% FLUSH 10 ML FLUSH IV FLUSH SCH ×2 (08:26→20:52)
[2018-01-04] MEDS: INSULIN ASPART 1,000 UNITS/10 ML VIAL SQ SCH ×3 (08:28→17:30)
[2018-01-04] MEDS: MORPHINE SULFATE 30 MG CONTROLLED RELEASE TAB PO SCH ×2 (08:28→20:53)
[2018-01-04] MEDS: DORZOLAMIDE 2% OPTH SOLN 200 DROP/10 ML BTLO EACH EYE SCH ×2 (08:29→20:52)
[2018-01-04] MEDS: INSULIN ASPART SUPPLEMENTAL SCALE SQ SCH ×3 (08:29→20:53)
[2018-01-04 08:32] LABS: BASOPHIL # 0.1 TH/MM3 (0-0.2); BASOPHIL % 0.7 % (0.0-2.0); EOSINOPHIL # 0.2 TH/MM3 (0-0.4); EOSINOPHIL % 2.6 % (0.0-4.0); HEMATOCRIT 29.5 % (39.0-51.0); HEMOGLOBIN 9.8 GM/DL (13.0-17.0); LYMPH % 23.8 % (9.0-44.0); LYMPHOCYTE # 2.3 TH/MM3 (1.0-4.8); MEAN CELL VOLUME 81.5 FL (80.0-100.0); MEAN CORPUSCULAR HEMOGLOBIN 27.1 PG (27.0-34.0); MEAN CORPUSCULAR HGB CONC 33.3 % (32.0-36.0); MEAN PLATELET VOLUME 7.3 FL (7.0-11.0); MONO % 10.8 % (0.0-8.0); NEUT % 62.1 % (16.0-70.0); PLATELET COUNT 238 TH/MM3 (150-450); RED BLOOD COUNT 3.62 MIL/MM3 (4.50-5.90); RED CELL DISTRIBUTION WIDTH 15.1 % (11.6-17.2); WHITE BLOOD COUNT 9.6 TH/MM3 (4.0-11.0)
[2018-01-04 08:54] LABS: ALBUMIN 2.5 GM/DL (3.4-5.0); AST (GOT) 11 U/L (15-37); BICARBONATE 24.2 MEQ/L (21.0-32.0); BLOOD UREA NITROGEN 29 MG/DL (7-18); CALCIUM 8.7 MG/DL (8.5-10.1); CHLORIDE 105 MEQ/L (98-107); GLOMERULAR FILTRATION RATE 39 ML/MIN (>89); GLUCOSE,RANDOM 139 MG/DL (74-106); SODIUM (NA) 138 MEQ/L (136-145)
[2018-01-04 08:55] LABS: ALT (GPT) 12 U/L (12-78)
[2018-01-04 08:57] LABS: ALKALINE PHOSPHATASE 67 U/L (45-117); TOTAL BILIRUBIN ADULT 0.6 MG/DL (0.2-1.0); TOTAL PROTEIN 7.4 GM/DL (6.4-8.2)
--- NOTE | 2018-01-04 10:27 | HHI.FPPN ---
Subjective Remarks Patient seen and examined at bedside this morning. Patient is still refusing Levemir at night, Levemir was held and sliding scale insulin was restarted. Blood sugar last night at 21:02 was 256. Patient is eating well. Minimal right elbow pain. Objective Vitals Vital Signs Date Time Temp Pulse Resp B/P (MAP) Pulse Ox O2 Delivery O2 Flow Rate FiO2 01/04/18 08:00 96.6 68 17 161/69 (99) 99 01/04/18 00:00 99.2 80 18 129/64 (85) 97 01/03/18 21:40 21 01/03/18 20:00 99.8 84 18 152/72 (98) 98 01/03/18 16:00 98.2 74 16 115/66 (82) 96 01/03/18 12:00 98.6 91 16 136/64 (88) 96 I/O 01/03/18 01/03/18 01/03/18 01/04/18 01/04/18 01/04/18 07:00 15:00 23:00 07:00 15:00 23:00 Intake Total 1240 ml 100 ml 2100 ml 100 ml Output Total 1350 ml 1725 ml 1250 ml Balance -110 ml 100 ml 375 ml -1150 ml Intake Oral 240 ml 2000 ml IV Total 1000 ml 100 ml 100 ml 100 ml Output Urine Total 1350 ml 1725 ml 1250 ml # Bowel Movements 0 Result Diagram: 01/04/18 0745 01/04/18 0745 Objective Remarks GENERAL: This is a well-nourished, well-developed patient, sitting in bed in no apparent distress. SKIN: No rashes, or ecchymoses. Cool and dry. HEAD: Atraumatic. Normocephalic. EYES: Extraocular motions intact. No scleral icterus. No injection or drainage. ENT: Nose without bleeding, purulent drainage or septal hematoma. NECK: Trachea midline. No JVD or lymphadenopathy. Supple, nontender, no meningeal signs. CARDIOVASCULAR: Regular rate and rhythm without murmurs, gallops, or rubs. RESPIRATORY: Clear to auscultation BL. No wheezes, rales, or rhonchi. GASTROINTESTINAL: Abdomen soft, non-tender, nondistended. No hepato-splenomegaly , or palpable masses. No guarding. MUSCULOSKELETAL: Extremities without clubbing or cyanosis. mild edema noted around Right ankle. Joint tenderness to palpation on Right ankle. Left foot wound covered with bandage today. NEUROLOGICAL: Awake and alert. Pt with neuropathy, no sensation on plantar aspect of feet BL. Normal speech. 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 Barrios due to concern for osteomyelitis via chronic Left foot wound. Patient is stable, afebrile, no leukocytosis. MRI positive for osteomyelitis. POD# 2 of partial 5th ray amputation left foot with bone biopsy by Dr. Barrios Problem List: (1) Osteomyelitis ICD Codes: M86.9 - Osteomyelitis, unspecified Status: Acute Plan: Patient with h/o of chronic left foot wound for 4 wks. Patient has been following with Dr. Barrios and was advised to come to ED due to concerns of osteomyelitis Patient with h/o neuropathy, currently denies any pain on Left foot. On admission ESR >140, CRP 11 No leukocytosis, Afebrile. Patient is stable Left foot MRI: Osteomyelitis, cellulitis and subcutaneous abscess seen at the level of the fifth digit. -Podiatry consulted, appreciated recommendations POD# 2 of partial 5th ray amputation left foot with bone biopsy by Dr. Barrios pathology reports: Pending -ID consulted, appreciate recommendations renal u/s: No hydronephrosis or acute abnormality Pt started on cefepime 2g IV Q8h (01/03--) Wound cx: pseudomonas and 1 CFU of staphylococcus. If any gram positives use Zyvox IV. Fungal smear: No fungal elements seen Acid Fast Stain: pending Gram stain: Rare WBC, no organisms seen (2) Diabetes mellitus ICD Codes: E11.9 - Type 2 diabetes mellitus without complications Status: Chronic Plan: On admission BG 140 Patient is refusing hospital insulin regimen. BG of 151 this morning, At home patient insulin regimen: 15 units of novolog before meals and 56 units HS of long lasting insulin tresiba. Spoke to pharmacy 01/02, we do not carry tresiba. Substitution can be made with levemir and there is a 1-to-1 conversion. This was discussed with patient however pt stated he will not another type of long lasting insulin. Hospital insulin regimen updated: novolog 5 units TIDAC Levemir 28 units HS- held as pt is refusing to take this sliding scale restarted last night -will continue to monitor BG and adjust as needed Bedside glucose checks home diabetic medication held hypoglycemia protocol (3) HTN (hypertension) ICD Codes: I10 - Essential (primary) hypertension Status: Chronic Plan: Blood pressure this morning 161/69 -On admission Blood pressure medications held due to initial blood pressure of 96/54. -Hydrochlorothiazide resumed -lisinopril held Continue to monitor (4) Chronic kidney disease ICD Codes: N18.9 - Chronic kidney disease, unspecified Status: Chronic Plan: On admission Creatinine of 2.59, baseline 1.5-2 Cr downtrending Continue to monitor Avoid nephrotoxic agents Nephrology consulted (5) Neuropathy ICD Codes: G62.9 - Polyneuropathy, unspecified Status: Chronic Plan: Continue with gabapentin 200 by mouth twice a day (6) Nutrition, metabolism, and development symptoms ICD Codes: R63.8 - Other symptoms and signs concerning food and fluid intake Plan: Fluids: 100 mls/hr- pt is refusing this Electrolytes: will continue to monitor, replete as needed. Nutrition: Diabetic diet DVT ppx: SCDs Problem Qualifiers (1) Osteomyelitis: Qualified Codes: M86.172 - Other acute osteomyelitis, left ankle and foot Malathi Charles MD, R1 Jan 04, 2018 10:27
[2018-01-04 12:00] VITALS: BP 164/74; PULSE 80; RESP 17; TEMP 96.9; O2SAT 99
[2018-01-04] MEDS ORDERED: GLUCAGON 1 MG/ML VIAL OTHER PRN (13:00)
[2018-01-04] MEDS ORDERED: DEXTROSE 50% IN WATER 50 ML VIAL(D50) IV PUSH PRN (13:00)
[2018-01-04] MEDS: HYDROCHLOROTHIAZIDE 25 MG TAB PO SCH (13:30)
[2018-01-04 16:00] VITALS: BP 131/65; PULSE 73; RESP 17; TEMP 98.3; O2SAT 98
--- NOTE | 2018-01-04 16:16 | PD.POD ---
Subjective Podiatric Problems s/p left partial 5th ray amputation with bone biopsy 3.5 Dr Barrios Past Med/Surg/Social History Social History Smoking Status: Current Every Day Smoker Objective Vital Signs Vital Signs Date Time Temp Pulse Resp B/P (MAP) Pulse Ox O2 Delivery O2 Flow Rate FiO2 01/04/18 12:00 96.9 80 17 164/74 (104) 99 01/04/18 08:00 96.6 68 17 161/69 (99) 99 01/04/18 00:00 99.2 80 18 129/64 (85) 97 01/03/18 21:40 21 01/03/18 20:00 99.8 84 18 152/72 (98) 98 Coded Allergies: No Known Allergies (Verified , 08/01/17) Objective Remarks Last 72 hours Impressions Renal Ultrasound 01/02/18 0000 Signed Impressions: Service Date/Time: Tuesday, January 02, 2018 19:44 - CONCLUSION: There is no hydronephrosis or acute abnormality. Schuyler Alexander MD Foot X-Ray 01/02/18 0000 Signed Impressions: Service Date/Time: Tuesday, January 02, 2018 19:01 - CONCLUSION: Postoperative findings from 5th digit amputation. Jonathan Hernandez MD Foot MRI 01/01/18 0000 Signed Impressions: Service Date/Time: Monday, January 01, 2018 14:20 - CONCLUSION: Osteomyelitis, cellulitis and subcutaneous abscess seen at the level of the fifth digit. Juan Arredondo MD Physical Exam Remarks left foot with sutures intact. No drainage noted. Assessment & Plan A/P s/p left partial 5th ray amputation with bone biopsy 3.5 Dr Barrios Continue nonweightbearing right (acute [place]) and left (surgical foot) lower extremities. Awaiting bone biopsy Changed dressing today. Keep clean, dry, intact until next week. Will change in clinic next week. If bone biopsy negative tomorrow, OK with d/c home and will be following patient closely. Alyssa Barrios DPM Jan 04, 2018 16:16
--- NOTE | 2018-01-04 16:17 | HHI.NPPN ---
Subjective History of Present Illness The patient is a 57 yo [place] male who presented to this facility on 01/01 at the urge of Dr. Hawkins for evaluation of left foot wound. He has known hx of CKD, but uncertain of baseline. Mentions potential previous eval with supervisor cd area, but does not follow regularly. Uncertain of baseline SCr levels. MRi of the foot showed osteomyelitis with cellulitis and overlying abscess. Denies any NSAID use, no NVD. Besides foot pain states he is feeling OK. From review of hospital labs dating back to 2010, appears baseline SCr 1.7-1.8 He is a longstanding IDDM with neuropathy. 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 Admitting SCr 2.59 that has improved to 1.83 at consult. Interval History Patient resting comfortably with no verbal complaints. Objective Data Data Vital Signs Date Time Temp Pulse Resp B/P (MAP) Pulse Ox O2 Delivery O2 Flow Rate FiO2 01/04/18 12:00 96.9 80 17 164/74 (104) 99 01/04/18 08:00 96.6 68 17 161/69 (99) 99 01/04/18 00:00 99.2 80 18 129/64 (85) 97 01/03/18 21:40 21 01/03/18 20:00 99.8 84 18 152/72 (98) 98 -: 01/04/18 0745 01/04/18 0745 Physical Exam General Appearance: Well Developed, No Acute Distress, Comfortable Eyes Eye Exam: Sclera White Neck Neck Exam: Trachea Midline Pulmonary Resp Exam: Clear Bilaterally, Breath Sounds Equal, No Distress Cardiology CV Exam: Regular, Normal Sinus Rhythm Integumentary Skin Exam: Clear, Warm Extremeties Extremities Exam: No Edema Assessment/Plan Discussed Condition With: Patient Problem List: (1) Acute on chronic renal insufficiency ICD Codes: N28.9 - Disorder of kidney and ureter, unspecified; N18.9 - Chronic kidney disease, unspecified Plan: Patient's renal function appears to be back to his usual baseline. Deterioration was most likely related to dehydration now resolved. Encouraged continued adequate po intake. At this point in time will sign off. Please recall if needed. Patient was counseled regarding the severity of his chronic kidney disease as well as the need to avoid using NSAIDs for analgesia in the future. Medications should be adjusted for the patient's renal insufficiency. Avoid NSAIDs and other nephrotoxic medications. Avoid gadolinium when eGFR <30. (2) HTN (hypertension) ICD Codes: I10 - Essential (primary) hypertension Status: Chronic Plan: Home ACEi held. Continue other home medications (3) Diabetes mellitus ICD Codes: E11.9 - Type 2 diabetes mellitus without complications Status: Chronic Plan: Mgmt as per primary (4) Osteomyelitis ICD Codes: M86.9 - Osteomyelitis, unspecified Status: Acute Plan: Mgmt as per ID (5) Vitamin D deficiency ICD Codes: E55.9 - Vitamin D deficiency, unspecified Status: Chronic Plan Vitamin D supplementation as ordered. Problem Qualifiers (1) Osteomyelitis: Qualified Codes: M86.172 - Other acute osteomyelitis, left ankle and foot Lashawn Kline MD Jan 04, 2018 16:17
[2018-01-04] MEDS: CHOLECALCIFEROL (VIT D3) 1000 UNIT TAB PO SCH (17:30)
--- NOTE | 2018-01-04 17:57 | HHI.PR ---
Subjective Remarks Patient's care was transferred from the family medicine residency program to [facility] I proceeded to see the patient regarding Left 5th digit outer aspect osteomyelitis/ Left foot cellulitis possible abscess/ diabetes type 2 for which patient was admitted in hospital and seen by plumbing designer. Patient underwent partial left 5th ray amputation 01/02/18.Infectious disease specialist was consulted and patient is currently on Cefepime IV. While in the Hospital, patient has refused Basal coverage however he is currently on ISS. He states he only takes the Basal insulin prescribed by his Contract Administration Manager. Blood glucose was slightly elevated. During my exam, he has no complains Objective Vitals Vital Signs Date Time Temp Pulse Resp B/P (MAP) Pulse Ox O2 Delivery O2 Flow Rate FiO2 01/04/18 16:00 98.3 73 17 131/65 (87) 98 01/04/18 12:00 96.9 80 17 164/74 (104) 99 01/04/18 08:00 96.6 68 17 161/69 (99) 99 01/04/18 00:00 99.2 80 18 129/64 (85) 97 01/03/18 21:40 21 01/03/18 20:00 99.8 84 18 152/72 (98) 98 I/O 01/03/18 01/03/18 01/03/18 01/04/18 01/04/18 01/04/18 07:00 15:00 23:00 07:00 15:00 23:00 Intake Total 1240 ml 100 ml 2100 ml 100 ml Output Total 1350 ml 1725 ml 1250 ml Balance -110 ml 100 ml 375 ml -1150 ml Intake Oral 240 ml 2000 ml IV Total 1000 ml 100 ml 100 ml 100 ml Output Urine Total 1350 ml 1725 ml 1250 ml # Bowel Movements 0 Result Diagram: 01/04/18 0745 01/04/18 0745 Imaging Last Impressions Upper Extremity Ultrasound 01/03/18 0000 Signed Impressions: Service Date/Time: Wednesday, January 03, 2018 16:53 - CONCLUSION: 1. No evidence of DVT. 2. There is superficial thrombus in the distal cephalic vein. Lewis Laguerre MD Renal Ultrasound 01/02/18 0000 Signed Impressions: Service Date/Time: Tuesday, January 02, 2018 19:44 - CONCLUSION: There is no hydronephrosis or acute abnormality. Schuyler Alexander MD Foot X-Ray 01/02/18 0000 Signed Impressions: Service Date/Time: Tuesday, January 02, 2018 19:01 - CONCLUSION: Postoperative findings from 5th digit amputation. Jonathan Hernandez MD Foot MRI 01/01/18 0000 Signed Impressions: Service Date/Time: Monday, January 01, 2018 14:20 - CONCLUSION: Osteomyelitis, cellulitis and subcutaneous abscess seen at the level of the fifth digit. Juan Arredondo MD Objective Remarks GENERAL: NAD SKIN: Warm and dry. HEAD: Normocephalic. EYES: No scleral icterus. No injection or drainage. NECK: Supple, trachea midline. No JVD or lymphadenopathy. CARDIOVASCULAR: Regular rate and rhythm without murmurs, gallops, or rubs. RESPIRATORY: Breath sounds equal bilaterally. No accessory muscle use. GASTROINTESTINAL: Abdomen soft, non-tender, nondistended. MUSCULOSKELETAL: No cyanosis, or edema. dressing over left foot-neurovascular intact BACK: Nontender without obvious deformity. No CVA tenderness. Procedures Partial 5th ray amputation left foot with bone biopsy 01/02/18 A/P Problem List: (1) Osteomyelitis ICD Code: M86.9 - Osteomyelitis, unspecified Status: Acute (2) Neuropathy ICD Code: G62.9 - Polyneuropathy, unspecified Status: Chronic (3) Diabetes mellitus ICD Code: E11.9 - Type 2 diabetes mellitus without complications Status: Chronic Assessment and Plan (1) Osteomyelitis -Podiatry consulted, appreciated recommendations s/p partial 5th ray amputation left foot with bone biopsy by Dr. Barrios Currently on Cefepime per ID (2) Diabetes mellitus Patient is refusing hospital Basal insulin regimen. At home patient insulin regimen: 15 units of Novolog before meals and 56 units HS of long lasting insulin tresiba. novolog 5 units TIDAC Levemir 28 units HS Change to High ISS (3) HTN (hypertension) Continue with outpatient medications with holding parameters.Continue to monitor (4) Chronic kidney disease Avoid nephrotoxic agents Nephrology ff (5) Neuropathy Continue with gabapentin 200 by mouth twice a day Problem Qualifiers (1) Osteomyelitis: Qualified Codes: M86.172 - Other acute osteomyelitis, left ankle and foot Dominguez Salcedo MD Jan 04, 2018 17:57
[2018-01-04 20:00] VITALS: BP 137/68; PULSE 76; RESP 20; TEMP 98.6; O2SAT 98
[2018-01-04] MEDS: LATANOPROST 0.005% OPHT SOLN 2.5 ML BTL EACH EYE SCH (20:52)
[2018-01-04 23:57] VITALS: BP 151/70; PULSE 73; RESP 20; TEMP 99.1; O2SAT 97
[2018-01-05] MEDS: CEFEPIME INJ 2,000 MG in SODIUM CHLORIDE 0.9% INJ 100 ML IV SCH ×3 (02:28→15:00)
[2018-01-05] MEDS: ACETAMINOPHEN 325 MG TAB PO PRN ×2 (02:45→14:03)
[2018-01-05 08:00] VITALS: BP 140/76; PULSE 68; RESP 19; TEMP 95.7; O2SAT 100
[2018-01-05] MEDS: SODIUM CHLOR 0.9% 1000 ML INJ 1,000 ML IV SCH (08:59)
[2018-01-05] MEDS: DORZOLAMIDE 2% OPTH SOLN 200 DROP/10 ML BTLO EACH EYE SCH (09:00)
[2018-01-05] MEDS: MORPHINE SULFATE 30 MG CONTROLLED RELEASE TAB PO SCH (09:17)
[2018-01-05] MEDS: HYDROCHLOROTHIAZIDE 25 MG TAB PO SCH (09:17)
[2018-01-05] MEDS: CHOLECALCIFEROL (VIT D3) 1000 UNIT TAB PO SCH (09:17)
[2018-01-05] MEDS: LACTOBACILLUS ACIDOPHILUS TAB PO SCH (09:17)
[2018-01-05] MEDS: DOCUSATE SODIUM 50 MG/SENNA 8.6 MG TAB PO SCH (09:17)
[2018-01-05] MEDS: GABAPENTIN 100 MG CAP PO SCH (09:17)
[2018-01-05] MEDS: INSULIN ASPART 1,000 UNITS/10 ML VIAL SQ SCH ×2 (09:18→11:37)
[2018-01-05] MEDS: INSULIN ASPART SUPPLEMENTAL SCALE SQ SCH ×2 (09:19→11:37)
[2018-01-05] MEDS: SODIUM CHLORIDE 0.9% FLUSH 10 ML FLUSH IV FLUSH SCH (09:19)
[2018-01-05 09:23] VITALS: O2SAT 100
[2018-01-05 12:00] VITALS: BP 130/73; PULSE 78; RESP 20; TEMP 95.7; O2SAT 100
[2018-01-05] MEDS ORDERED: MORP1TAB25 PO (12:30)
[2018-01-05] MEDS ORDERED: PERI PO (12:30)
--- NOTE | 2018-01-05 12:40 | HHI.PR ---
Objective Vitals Vital Signs Date Time Temp Pulse Resp B/P (MAP) Pulse Ox O2 Delivery O2 Flow Rate FiO2 01/05/18 12:00 95.7 78 20 130/73 (92) 100 01/05/18 09:23 100 01/05/18 08:00 95.7 68 19 140/76 (97) 100 01/04/18 23:57 99.1 73 20 151/70 (97) 97 01/04/18 20:00 98.6 76 20 137/68 (91) 98 01/04/18 16:00 98.3 73 17 131/65 (87) 98 I/O 01/04/18 01/04/18 01/04/18 01/05/18 01/05/18 01/05/18 07:00 15:00 23:00 07:00 15:00 23:00 Intake Total 100 ml 3700 ml 480 ml Output Total 1250 ml 1325 ml 1350 ml Balance -1150 ml 2375 ml -870 ml Intake Oral 3600 ml 480 ml IV Total 100 ml 100 ml Output Urine Total 1250 ml 1325 ml 1350 ml # Bowel Movements 0 0 Result Diagram: 01/04/18 0745 01/04/18 0745 Procedures Partial 5th ray amputation left foot with bone biopsy 01/02/18 A/P Assessment and Plan (1) Osteomyelitis ICD Codes: M86.9 - Osteomyelitis, unspecified Status: Acute Plan: Patient with h/o of chronic left foot wound since 4 wks ago. Patient has been following with Dr. Barrios and was advised to come to ED due to concerns of osteomyelitis Patient with h/o neuropathy, currently denies any pain on Left foot. On admission ESR >140, CRP 11 No leukocytosis, Afebrile. Patient is stable Left foot MRI: Osteomyelitis, cellulitis and subcutaneous abscess seen at the level of the fifth digit. -Podiatry consulted, appreciated recommendations POD# 1 of partial 5th ray amputation left foot with bone biopsy by Dr. Barrios -ID consulted, appreciate recommendations renal u/s: No hydronephrosis or acute abnormality Pt started on cefepime 2g IV Q8h (01/03--) Wound cx: pending, If any gram positives use Zyvox IV. Fungal smear: No fungal elements seen Acid Fast Stain: pending Gram stain: Rare WBC, no organisms seen (2) Diabetes mellitus ICD Codes: E11.9 - Type 2 diabetes mellitus without complications Status: Chronic Plan: On admission BG 140 Patient is refusing hospital insulin regimen. BG of 158 this morning, At home patient insulin regimen: 15 units of novolog before meals and 56 units HS of long lasting insulin tresiba. Spoke to pharmacy 01/02, we do not carry tresiba. Substitution can be made with levemir and there is a 1-to-1 conversion. Hospital insulin regimen updated: novolog 5 units TIDAC Levemir 28 units HS sliding scale discontinued -will continue to monitor BG and adjust as needed Bedside glucose checks home diabetic medication held hypoglycemia protocol (3) HTN (hypertension) ICD Codes: I10 - Essential (primary) hypertension Status: Chronic Plan: Blood pressure within normal limits, 137/67 -Blood pressure medications held due to initial blood pressure of 96/54. Resume hypertension medication depending on repeat blood pressure readings. Continue to monitor (4) Chronic kidney disease ICD Codes: N18.9 - Chronic kidney disease, unspecified Status: Chronic Plan: On admission Creatinine of 2.59, baseline 1.5-2 Cr downtrending Continue to monitor Avoid nephrotoxic agents Nephrology consulted (5) Neuropathy ICD Codes: G62.9 - Polyneuropathy, unspecified Status: Chronic Plan: Continue with gabapentin 200 by mouth twice a day Dominguez Salcedo MD Jan 05, 2018 12:40
[2018-01-05] MEDS ORDERED: LEVA500T33 PO (14:34)
--- NOTE | 2018-01-05 14:35 | HHI.IDPN ---
Subjective Subjective Remarks is a 57 y/o CM with PMHx of DM with neuropathy, single kidney (? atrophy at removed at 11 yrs age by history), Chronic kidney disease ( never seen a bi tri operator) and HTN. With this background patient presents to the ED on request of his sales director Dr. Hawkins due to concern for bone infection of left foot wound. Patient was seen by Dr. Hawkins on Tuesday and she had concern for osteomyelitis. Patient reported Dr. Hawkins called him and asked him to come into ED for preparation of Left foot wound surgical evaluation. He has been seeing Dr. Hawkins this past year about every two weeks due to chronic foot ulcers. He reports it was a callus that has never healed. Right foot wound has healed but he developed left foot wound on the side of the 5th toe about 4 wks ago. Patient states he has no pain on Left foot. Patient had an MRI foot which is cw with Osteomyelitis. Podiatry is following patients. There were cultures collected in the outpatient setting per which are not finalized yet. Prelim wound cultures superficial at [facility] Pseudomonas species susceptibility pending. Denies fever. Reports chills and night sweats for last few weeks off and on. Reports this status as a callus. ID consulted for evaluation and M'ment of Left foot cellultis and left foot 5th digit abscess/cellulitis and osteomyelitis. Overnight events to be reviewed. No fever No rash No diarrhea Wishes to go home. Refuses IV antibiotics. Wants no antibiotics or oral antibiotics. Refuses PICC, or port. Antibiotics Cefepime IV Lines Line sites with no e.o infection Past Medical History reviewed Allergies: Coded Allergies: No Known Allergies (Verified , 08/01/17) Objective . Vital Signs Date Time Temp Pulse Resp B/P (MAP) Pulse Ox O2 Delivery O2 Flow Rate FiO2 01/05/18 12:00 95.7 78 20 130/73 (92) 100 01/05/18 09:23 100 01/05/18 08:00 95.7 68 19 140/76 (97) 100 01/04/18 23:57 99.1 73 20 151/70 (97) 97 01/04/18 20:00 98.6 76 20 137/68 (91) 98 01/04/18 16:00 98.3 73 17 131/65 (87) 98 . Laboratory Tests Test 01/04/18 07:45 White Blood Count 9.6 TH/MM3 Red Blood Count 3.62 MIL/MM3 Hemoglobin 9.8 GM/DL Hematocrit 29.5 % Mean Corpuscular Volume 81.5 FL Mean Corpuscular Hemoglobin 27.1 PG Mean Corpuscular Hemoglobin Concent 33.3 % Red Cell Distribution Width 15.1 % Platelet Count 238 TH/MM3 Mean Platelet Volume 7.3 FL Neutrophils (%) (Auto) 62.1 % Lymphocytes (%) (Auto) 23.8 % Monocytes (%) (Auto) 10.8 % Eosinophils (%) (Auto) 2.6 % Basophils (%) (Auto) 0.7 % Neutrophils # (Auto) 6.0 TH/MM3 Lymphocytes # (Auto) 2.3 TH/MM3 Monocytes # (Auto) 1.0 TH/MM3 Eosinophils # (Auto) 0.2 TH/MM3 Basophils # (Auto) 0.1 TH/MM3 CBC Comment DIFF FINAL Differential Comment Laboratory Tests Test 01/04/18 07:45 Blood Urea Nitrogen 29 MG/DL Creatinine 1.80 MG/DL Random Glucose 139 MG/DL Total Protein 7.4 GM/DL Albumin 2.5 GM/DL Calcium Level 8.7 MG/DL Alkaline Phosphatase 67 U/L Aspartate Amino Transf (AST/SGOT) 11 U/L Alanine Aminotransferase (ALT/SGPT) 12 U/L Total Bilirubin 0.6 MG/DL Sodium Level 138 MEQ/L Potassium Level 4.2 MEQ/L Chloride Level 105 MEQ/L Carbon Dioxide Level 24.2 MEQ/L Anion Gap 9 MEQ/L Estimat Glomerular Filtration Rate 39 ML/MIN Microbiology Date/Time Source Procedure Growth Status 01/02/18 18:32 Wound Foot Fungal Smear - Final NO FUNGAL ELEMENTS SEEN. Resulted 3 18:32 Wound Foot Fungal Culture Pending Resulted 3 18:32 Wound Foot Acid Fast Stain - Final NO ACID FAST BACILLI SEEN Resulted 3 18:32 Wound Foot Mycobacterial Culture Pending Resulted 01/02/18 18:31 Wound Foot Gram Stain - Final Complete 3 18:31 Wound Foot Wound Culture - Final Complete 3 18:31 Wound Foot Fungal Smear - Final NO FUNGAL ELEMENTS SEEN. Resulted 3 18:31 Wound Foot Fungal Culture Pending Resulted 01/02/18 18:31 Wound Foot Acid Fast Stain - Final NO ACID FAST BACILLI SEEN Resulted 01/02/18 18:31 Wound Foot Mycobacterial Culture Pending Resulted 01/02/18 18:31 Wound Foot Gram Stain - Final Complete 3 18:31 Wound Culture - Final Pseudomonas Aeruginosa Complete Imaging Last Impressions Upper Extremity Ultrasound 01/03/18 0000 Signed Impressions: Service Date/Time: Wednesday, January 03, 2018 16:53 - CONCLUSION: 1. No evidence of DVT. 2. There is superficial thrombus in the distal cephalic vein. Lewis Laguerre MD Renal Ultrasound 01/02/18 0000 Signed Impressions: Service Date/Time: Tuesday, January 02, 2018 19:44 - CONCLUSION: There is no hydronephrosis or acute abnormality. Schuyler Alexander MD Foot X-Ray 01/02/18 0000 Signed Impressions: Service Date/Time: Tuesday, January 02, 2018 19:01 - CONCLUSION: Postoperative findings from 5th digit amputation. Jonathan Hernandez MD Foot MRI 01/01/18 0000 Signed Impressions: Service Date/Time: Monday, January 01, 2018 14:20 - CONCLUSION: Osteomyelitis, cellulitis and subcutaneous abscess seen at the level of the fifth digit. Juan Arredondo MD Physical Exam GENERAL: This is a well-nourished, well-developed patient, in no apparent distress. SKIN: No rashes, ecchymoses or lesions. Cool and dry. HEAD: Atraumatic. Normocephalic. No temporal or scalp tenderness. EYES: Pupils equal round and reactive. Extraocular motions intact. No scleral icterus. No injection or drainage. ENT: Nose without bleeding, purulent drainage or septal hematoma. Throat without erythema, tonsillar hypertrophy or exudate. Uvula midline. Airway patent. NECK: Trachea midline. Supple, nontender, no meningeal signs. CARDIOVASCULAR: Regular rate and rhythm without murmurs, gallops, or rubs. RESPIRATORY: Clear to auscultation. Breath sounds equal bilaterally. No wheezes , rales, or rhonchi. GASTROINTESTINAL: Abdomen soft, non-tender, nondistended. MUSCULOSKELETAL: Left foot in dressing. NEUROLOGICAL: Awake and alert, oriented. Moves all extremities. Psych cooperative IV line sites with no e.o infection. Assessment & Plan Remarks Left 5th digit outer aspect osteomyelitis. Left foot cellulitis possible abscess. DM with Neuropathy HTN Single kidney (? removed due to atrophy at ) Chronic kidney disease (never seen a bi tri operator to date, says has been trying for last 6 months) Recs: DC Cefepime IV Patient refuses IV antibiotics and PICC. dw him that would like some antibiotic that is susceptible. Explained to him that I would recommend Cefepime IV. Path negative for osteomyelitis but residual stump infection still possible. He chose Po Levaquin despite me telling him that Levaquin was intermediate and may or may not work. Explained to him worsening sepsis, shock, and further need for amputation are possible. He says "My body heals well I dont need any antibiotics but I will take oral". I told him signs of worsening sepsis and to represent to hospital if does not feel well or worsening of foot. He promised to do that but no IV antibiotics. dw Patient need for IV antibiotics if resistant organisms with no oral options or path s/o residual osteomyelitis. He insists on no Port PICC at present time. I explained to him I will relay this to as if complete surgical excision achieved with no residual osteomyelitis then possible oral option if available based on susceptibility. tuan Rizo. tuan RN to inform primary team: Levaquin scripts printed. Counseled about Cdiff and importance of early testing. Will sign off please call back if any change in clinical condition or questions. Prerna Hensley MD Jan 05, 2018 14:35
--- NOTE | 2018-01-05 14:45 | HHI.PR ---
Subjective Remarks Follow up Osteo/DM2 01/05/18-Patient seen and examined; no acute event overnight. Afebrile. Biopsy report negative . Case discussed with Infectious disease specialist Objective Vitals Vital Signs Date Time Temp Pulse Resp B/P (MAP) Pulse Ox O2 Delivery O2 Flow Rate FiO2 01/05/18 12:00 95.7 78 20 130/73 (92) 100 01/05/18 09:23 100 01/05/18 08:00 95.7 68 19 140/76 (97) 100 01/04/18 23:57 99.1 73 20 151/70 (97) 97 01/04/18 20:00 98.6 76 20 137/68 (91) 98 01/04/18 16:00 98.3 73 17 131/65 (87) 98 I/O 01/04/18 01/04/18 01/04/18 01/05/18 01/05/18 01/05/18 07:00 15:00 23:00 07:00 15:00 23:00 Intake Total 100 ml 3700 ml 480 ml Output Total 1250 ml 1325 ml 1350 ml Balance -1150 ml 2375 ml -870 ml Intake Oral 3600 ml 480 ml IV Total 100 ml 100 ml Output Urine Total 1250 ml 1325 ml 1350 ml # Bowel Movements 0 0 Result Diagram: 01/04/18 0745 01/04/18 0745 Imaging Last Impressions Upper Extremity Ultrasound 01/03/18 0000 Signed Impressions: Service Date/Time: Wednesday, January 03, 2018 16:53 - CONCLUSION: 1. No evidence of DVT. 2. There is superficial thrombus in the distal cephalic vein. Lewis Laguerre MD Renal Ultrasound 01/02/18 0000 Signed Impressions: Service Date/Time: Tuesday, January 02, 2018 19:44 - CONCLUSION: There is no hydronephrosis or acute abnormality. Schuyler Alexander MD Foot X-Ray 01/02/18 0000 Signed Impressions: Service Date/Time: Tuesday, January 02, 2018 19:01 - CONCLUSION: Postoperative findings from 5th digit amputation. Jonathan Hernandez MD Foot MRI 01/01/18 0000 Signed Impressions: Service Date/Time: Monday, January 01, 2018 14:20 - CONCLUSION: Osteomyelitis, cellulitis and subcutaneous abscess seen at the level of the fifth digit. Juan Arredondo MD Objective Remarks GENERAL: NAD SKIN: Warm and dry. HEAD: Normocephalic. EYES: No scleral icterus. No injection or drainage. NECK: Supple, trachea midline. No JVD or lymphadenopathy. CARDIOVASCULAR: Regular rate and rhythm without murmurs, gallops, or rubs. RESPIRATORY: Breath sounds equal bilaterally. No accessory muscle use. GASTROINTESTINAL: Abdomen soft, non-tender, nondistended. MUSCULOSKELETAL: No cyanosis, or edema. dressing over left foot-neurovascular intact BACK: Nontender without obvious deformity. No CVA tenderness. Procedures Partial 5th ray amputation left foot with bone biopsy 01/02/18 A/P Problem List: (1) Osteomyelitis ICD Code: M86.9 - Osteomyelitis, unspecified Status: Acute (2) Neuropathy ICD Code: G62.9 - Polyneuropathy, unspecified Status: Chronic (3) Diabetes mellitus ICD Code: E11.9 - Type 2 diabetes mellitus without complications Status: Chronic Assessment and Plan (1) Osteomyelitis -Podiatry consulted, appreciated recommendations s/p partial 5th ray amputation left foot with bone biopsy by Dr. Barrios Bone biopsy negative Currently on Cefepime per ID ID to prescribe discharge antibiotic; however patient does not want any PICC line placed (2) Diabetes mellitus Patient is refusing hospital Basal insulin regimen. At home patient insulin regimen: 15 units of Novolog before meals and 56 units HS of long lasting insulin tresiba. novolog 5 units TIDAC Levemir 28 units HS On High ISS (3) HTN (hypertension) Continue with outpatient medications with holding parameters.Continue to monitor (4) Chronic kidney disease Avoid nephrotoxic agents Nephrology ff (5) Neuropathy Continue with gabapentin 200 by mouth twice a day Problem Qualifiers (1) Osteomyelitis: Qualified Codes: M86.172 - Other acute osteomyelitis, left ankle and foot Dominguez Salcedo MD Jan 05, 2018 14:44
--- NOTE | 2018-01-05 14:45 | HHI.DS ---
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 Hawkins due to concern for bone infection via Left foot wound. Patient was seen by Dr. Hawkins on Tuesday and she had concern for osteomyelitis. Patient reported Dr. Hawkins called him and asked him to come into ED for preparation of Left foot wound surgical evaluation. He has been seeing Dr. Hawkins this past year about every two weeks due to chronic foot ulcers. Right foot wound has healed but he developed left foot wound on the side of the small toe about 4 wks ago. Patient states he has no pain on Left foot. Of note patient had "Right ankle collapse" recently which has resulted in Right LE and ankle pain. Denies fever or chills. CBC/BMP: 01/04/18 0745 01/04/18 0745 Significant Findings Laboratory Tests Test 01/03/18 06:40 01/03/18 06:50 01/03/18 13:31 01/03/18 14:09 Blood Urea Nitrogen 37 MG/DL (7-18) Creatinine 1.83 MG/DL (0.60-1.30) Random Glucose 147 MG/DL (74-106) Albumin 2.6 GM/DL (3.4-5.0) 3.08 GM/DL (3.50-5.00) Calcium Level 8.0 MG/DL (8.5-10.1) Estimat Glomerular Filtration Rate 39 ML/MIN (>89) Red Blood Count 3.58 MIL/MM3 (4.50-5.90) Hemoglobin 9.7 GM/DL (13.0-17.0) Hematocrit 29.1 % (39.0-51.0) Urine Protein 30 mg/dL (NEG-TRACE) Urine Sperm RARE (NONE) Urine Random Total Protein 41 MG/DL (0-11.8) Urine Protein/Creatinine Ratio 0.91 (0.00-0.14) Iron Level 16 MCG/DL (65-175) Total Iron Binding Capacity 175 MCG/DL (250-450) Percent Iron Saturation 9.1 % (20-50) Ferritin 483 NG/ML (26-388) Albumin/Globulin Ratio 0.85 (1.39-2.23) Gamma Globulins 1.78 GM/DL (0.50-1.39) 25-Hydroxy Vitamin D Total 18.1 ng/ML (30-100) Immunoglobulin G Total 1680 MG/DL (660-1640) Immunoglobulin Belk/Lambda Ratio 1.42 (1.57-3.93) Belk Light Chain Analysis 412 MG/DL (170-370) Lambda Light Chain Analysis 291 MG/DL (90-210) Test 01/04/18 07:45 Red Blood Count 3.62 MIL/MM3 (4.50-5.90) Hemoglobin 9.8 GM/DL (13.0-17.0) Hematocrit 29.5 % (39.0-51.0) Monocytes (%) (Auto) 10.8 % (0.0-8.0) Monocytes # (Auto) 1.0 TH/MM3 (0-0.9) Blood Urea Nitrogen 29 MG/DL (7-18) Creatinine 1.80 MG/DL (0.60-1.30) Random Glucose 139 MG/DL (74-106) Albumin 2.5 GM/DL (3.4-5.0) Aspartate Amino Transf (AST/SGOT) 11 U/L (15-37) Estimat Glomerular Filtration Rate 39 ML/MIN (>89) Imaging Last Impressions Upper Extremity Ultrasound 01/03/18 0000 Signed Impressions: Service Date/Time: Wednesday, January 03, 2018 16:53 - CONCLUSION: 1. No evidence of DVT. 2. There is superficial thrombus in the distal cephalic vein. Lewis Laguerre MD Renal Ultrasound 01/02/18 0000 Signed Impressions: Service Date/Time: Tuesday, January 02, 2018 19:44 - CONCLUSION: There is no hydronephrosis or acute abnormality. Schuyler Alexander MD Foot X-Ray 01/02/18 0000 Signed Impressions: Service Date/Time: Tuesday, January 02, 2018 19:01 - CONCLUSION: Postoperative findings from 5th digit amputation. Jonathan Hernandez MD Foot MRI 01/01/18 0000 Signed Impressions: Service Date/Time: Monday, January 01, 2018 14:20 - CONCLUSION: Osteomyelitis, cellulitis and subcutaneous abscess seen at the level of the fifth digit. Juan Arredondo MD PE at Discharge GENERAL: NAD SKIN: Warm and dry. HEAD: Normocephalic. EYES: No scleral icterus. No injection or drainage. NECK: Supple, trachea midline. No JVD or lymphadenopathy. CARDIOVASCULAR: Regular rate and rhythm without murmurs, gallops, or rubs. RESPIRATORY: Breath sounds equal bilaterally. No accessory muscle use. GASTROINTESTINAL: Abdomen soft, non-tender, nondistended. MUSCULOSKELETAL: No cyanosis, or edema. dressing over left foot-neurovascular intact BACK: Nontender without obvious deformity. No CVA tenderness. Hospital Course (1) Osteomyelitis -Podiatry consulted, appreciated recommendations s/p partial 5th ray amputation left foot with bone biopsy by Dr. Barrios Bone biopsy negative Currently on Cefepime per ID ID to prescribe discharge antibiotic; however patient does not want any PICC line placed (2) Diabetes mellitus Patient is refusing hospital Basal insulin regimen. At home patient insulin regimen: 15 units of Novolog before meals and 56 units HS of long lasting insulin tresiba. novolog 5 units TIDAC Levemir 28 units HS On High ISS (3) HTN (hypertension) Continue with outpatient medications with holding parameters.Continue to monitor (4) Chronic kidney disease Avoid nephrotoxic agents Nephrology ff (5) Neuropathy Continue with gabapentin 200 by mouth twice a day Pt Condition on Discharge: Good Discharge Disposition: Discharge Home Discharge Time: <= 30 minutes Discharge Instructions DIET: Follow Instructions for: Diabetic Diet Activities you can perform: Regular-No Restrictions Follow up Referrals: PCP Follow-up - 1 Week Podiatry New Medications: Levofloxacin (Levaquin) 500 Mg Tablet 500 MG PO DAILY for Infection for 14 Days, #14 TAB 0 Refills [place] Wheels/5 Adj ([place] Wheels/5 Adj) 1 Mis Mis EA .XX DIRECTED, #1 0 Refills Wheelchair (Wheelchair) 1 Mis Mis EA .XX DIRECTED, #1 0 Refills Morphine ER (Morphine ER) 30 Mg Tab 30 MG PO Q12HR for Pain, #20 TAB Sennosides-Docusate Sodium (Gnp Senna Plus 8.6-50 mg) 8.6 Mg-50 Mg Tab 1 TAB PO BID for Bowel Management, #20 TAB Continued Medications: Cholecalciferol (Vitamin D3) 2,000 Unit Cap 2000 UNITS PO DAILY for Nutritional Supplement, #56 CAP 0 Refills Cod Liver Oil ([place] Cod Liver Oil) 1 Cap 415 MG PO DAILY for Nutritional Supplement Dorzolamide Opth Drops (Dorzolamide Opth Drops) 2% Soln 1 DROP EACH EYE BID for Glaucoma, #1 BOTTLE 0 Refills Gabapentin (Gabapentin) 100 Mg Cap 200 MG PO BID, #60 CAP 0 Refills Glimepiride (Glimepiride) 1 Mg Tab 1 MG PO DAILY for Blood Sugar Management, TAB 0 Refills Take with breakfast or first main meal Hydrochlorothiazide (Hydrochlorothiazide) 25 Mg Tab 25 MG PO DAILY, TAB 0 Refills Insulin Aspart Inj (Novolog Flexpen Inj) 300 Unit/3 Ml Pen 15 UNITS SQ TIDAC for Blood Sugar Management, PEN 0 Refills Insulin Degludec Inj (Tresiba Flextouch Pen Inj) 300 unit/3 ML Pen 56 UNITS SQ HS for Blood Sugar Management, ML 0 Refills Inulin (Fiber Gummies) 2 Gram Tab.chew 2 GM PO BID Lactobacillus Combo No.10 (Probiotic) 20 Billion Cell Capsule 1 CAP PO DAILY for Nutritional Supplement Latanoprost Opth Drops (Latanoprost Opth Drops) 0.005% Drops 1 DROP EACH EYE HS for Glaucoma, #2.5 ML 0 Refills Refrigerate until opened. Morphine ER (Morphine ER) 30 Mg Tab 30 MG PO BID for Pain Management, #90 TAB 0 Refills Vitamin B Complex Vit C No.4 (Super B Complex) 150 Mg Tablet 1 TAB PO DAILY for Nutritional Supplement Dominguez Salcedo MD Jan 05, 2018 14:45
--- NOTE | 2018-01-05 15:35 | PD.POD ---
Subjective Podiatric Problems s/p left partial 5th ray amputation with bone biopsy 3.03.17 Dr Barrios Past Med/Surg/Social History Social History Smoking Status: Current Every Day Smoker Objective Vital Signs Vital Signs Date Time Temp Pulse Resp B/P (MAP) Pulse Ox O2 Delivery O2 Flow Rate FiO2 01/05/18 12:00 95.7 78 20 130/73 (92) 100 01/05/18 09:23 100 01/05/18 08:00 95.7 68 19 140/76 (97) 100 01/04/18 23:57 99.1 73 20 151/70 (97) 97 01/04/18 20:00 98.6 76 20 137/68 (91) 98 01/04/18 16:00 98.3 73 17 131/65 (87) 98 Coded Allergies: No Known Allergies (Verified , 08/01/17) Objective Remarks Last 72 hours Impressions Renal Ultrasound 01/02/18 0000 Signed Impressions: Service Date/Time: Tuesday, January 02, 2018 19:44 - CONCLUSION: There is no hydronephrosis or acute abnormality. Schuyler Alexander MD Foot X-Ray 01/02/18 0000 Signed Impressions: Service Date/Time: Tuesday, January 02, 2018 19:01 - CONCLUSION: Postoperative findings from 5th digit amputation. Jonathan Hernandez MD Foot MRI 01/01/18 0000 Signed Impressions: Service Date/Time: Monday, January 01, 2018 14:20 - CONCLUSION: Osteomyelitis, cellulitis and subcutaneous abscess seen at the level of the fifth digit. Juan Arredondo MD Assessment & Plan A/P s/p left partial 5th ray amputation with bone biopsy 3.03.17 Dr Barrios Continue nonweightbearing right (acute charcot) and left (surgical foot) lower extremities. Bone biopsy from residual 5th metatarsal negative for Osteo Ok with d/c anytime Alyssa Barrios DPM Jan 05, 2018 15:34
--- NOTE | 2018-01-19 14:40 | MP ---
cc: Alyssa Barrios DPM DATE OF OPERATION: 01/02/2018 The patient presented to my clinic with a wound that probed to bone noted to the left plantar aspect of the fifth metatarsal head area with mild purulence noted, erythema and edema to the fifth digit. An MRI was performed that showed findings consistent with osteomyelitis. I discussed this with the patient. He agreed to undergo a left partial fifth ray amputation with bone biopsy. The patient was seem in the preop holding by myself, nursing staff and anesthesia where the correct patient, side, and site were all confirmed to be correct of left foot. He was then taken to the surgical suite in supine position. The left foot was prepped and draped in normal sterile fashion followed by timeout as per facility protocol. Following this, two semi-elliptical incisions were made encompassing the left fifth toe and the plantar wound down to bone at the level of the mid shaft fifth metatarsal where the fifth metatarsal was transected at this level. Following removal of the distal aspect of the partial fifth ray, bone was removed from the residual fifth metatarsal and sent as bone biopsy. Culture and sensitivity taken of right foot followed by irrigation of the area with normal saline x 6 liters. Another culture was then taken following irrigation. There was noted to be healthy viable tissue within the wound bed prior to closure with 2-0 nylon, followed by a dressing consisting of Xeroform, 4 x 4s, ABD pad x 2 cast padding and Vipin to the left foot. He will be nonweightbearing left foot, as well as the right foot due to an acute Charcot attack. We will await bone biopsy to determine if further antibiotics are needed long-term. Short operative note. SURGEON: Alyssa Barrios DPM BILINGUAL MEDICAL RECEPTIONIST: Staff. PREOPERATIVE DIAGNOSIS: Osteomyelitis left 5th metatarsal and toe. POSTOPERATIVE DIAGNOSIS: Osteomyelitis left 5th metatarsal and toe. PROCEDURE: Partial fifth ray amputation, bone biopsy. PATHOLOGY: 1. Culture presurgical left foot. 2. Culture postsurgical left foot. 3. Left fifth metatarsal and toe to pathology. 4. Left residual fifth metatarsal bone biopsy. ESTIMATED BLOOD LOSS: 25 mL ANESTHESIA: MAC plus local consisting of 10 mL 2% lidocaine plain. No tourniquet utilized. CONDITION: Stable to PACU. COMPLICATIONS: None. DISPOSITION: Nonweightbearing left and right lower extremities. Followup bone biopsy and cultures to determine further treatment. Alyssa Barrios DPM / , 09:48 PM , 10:20 PM [facility]
== END 2018-01-05 16:37 | disposition home or self-care (01) | DRG 617 ==
LOC: NEPC 11:44 → NEDA 14:42 → N07A 16:11
PROVIDERS: ADMIT Hospitalist; ATTEND Hospitalist
PROC: 0Y6N0ZF Detachment at Left Foot, Partial 5th Ray, Open Approach (ICD-10-PCS; principal; 2018-01-02 17:20)
DX: E11.69 Type 2 diabetes mellitus with other specified complication (principal); M86.172 Other acute osteomyelitis, left ankle and foot; E11.22 Type 2 diabetes mellitus with diabetic chronic kidney disease; E11.40 Type 2 diabetes mellitus with diabetic neuropathy, unspecified; Z79.4 Long term (current) use of insulin; Z79.84 Long term (current) use of oral hypoglycemic drugs; F17.290 Nicotine dependence, other tobacco product, uncomplicated; Z90.5 Acquired absence of kidney; I12.9 Hypertensive chronic kidney disease with stage 1 through stage 4 chronic kidney disease, or unspecified chronic kidney disease; N18.9 Chronic kidney disease, unspecified; H40.9 Unspecified glaucoma; Z89.422 Acquired absence of other left toe(s); M14.671 Charcot's joint, right ankle and foot; E86.0 Dehydration; N28.9 Disorder of kidney and ureter, unspecified; E55.9 Vitamin D deficiency, unspecified; Z85.828 Personal history of other malignant neoplasm of skin
CPT/HCPCS: 73630; 73718; 76775; 80048; 80053; 81001; 82306; 82570; 82728; 82784; 82948; 83540; 83550; 83883; 83970; 84100; 84156; 84165; 85025; 85027; 85652; 86140; 86334; 86403; 87015; 87040; 87070; 87077; 87102; 87116; 87185; 87186; 87205; 87206; 88304; 88305; 88307; 88311; 93971; J0692; J1100; J1815; J1885; J3010; J7030; J7120